=== PATIENT | female | born 1930 | race Caucasian/White ===

== ENCOUNTER 2016-07-17 14:48 | Inpatient (IN) | payer MEDICARE ==
[~2016-07-17] VITALS: Ht 160 cm; Wt 71.7 kg
[~2016-07-17 14:48] MED LIST: ALPR.5T PO; ASPI-875 PO; CA C1TAB26 PO; CALC625T PO; CHOL2000 PO; CYAN100070 PO; DCS100C PO; ENAL2.5T PO; ESTR0.5T PO; ESTR10TA VG; FLINTSTONE1 TAB.CHE4 PO; FURO40TA4 PO; FURO80TA3 PO; HC A28.3 PR; HYDR-2889 PO; HYDR-34 PO; INUL2TAB2 PO; LOPE2CAP PO; METO25TA2 PO; POTA20TA15 PO; ROSU10TA12 PO; TMZP15C PO; TRIA1CAP PO
--- OUTSIDE RECORDS SUMMARY | 2016-07-17 14:52 | XMS REPORT | Continuity of Care Document ---
Author Author [facility] Organization [facility] Address Unknown Phone Unavailable Care Team Providers Care [place] Name Role Phone DONTAE KERN MD PCP Insurance Providers Payer Name Policy Number Subscriber Name Relationship Wps Medicare [id number] Katie Ramirez 16 Self / Same As Patient Blue Cross [facility] Supp [id number] Katie Ramirez 16 Self / Same As Patient Advance Directives Directive Response Recorded Date/Time Advance Directives Yes 12/05/14 9:51am Health Care Power of Supervisor Electronics Assembly Yes 12/05/14 9:51am Organ Donor No 12/05/14 9:51am Resuscitation Status Full Code 12/05/14 9:51am Problems Medical Problems Problem Onset Date Status Mass of right lower leg Unknown Active Medications Medication Dose Route Sig Days/Qty Instructions Order Date Discontinued Date Status Alprazolam 0.25 Tab PO BEDTIME 03/09/12 Active Hydrocodone Bit/Acetaminophen 1 Each PO TID PRN 03/09/12 10/21/12 Discontinued Triamterene/HCTZ 1 Each PO DAILY 03/09/12 10/21/12 Discontinued Estradiol 0.5 Mg PO DAILY 03/09/12 10/21/12 Discontinued Potassium Chloride 20 Meq PO DAILY 10/21/12 Active Furosemide (Lasix) 1 Each PO DAILY 10/21/12 11/10/12 Discontinued Metoprolol Tartrate (Lopressor) 12.5 Mg PO TWICE A DAY TAKES 1/2 TAB OF 25MG TWICE DAILY 10/21/12 Active Rosuvastatin Calcium 10 Mg PO DAILY AFTER SUPPER 10/21/12 Active Acetaminophen/Hydrocodone Bitart 7.5-500 Mg PO THREE TIMES A DAY PRN 10/21/12 Active Aspirin 81 Mg PO DAILY 10/21/12 Active Temazepam 15 Mg PO BEDTIME 10/21/12 11/29/14 Discontinued Calcium Polycarbophil 625 Mg PO DAILY 10/21/12 11/10/12 Discontinued Estradiol 0.5 Mcg VG every 7 days 10/21/12 08/15/13 Discontinued Enalapril Maleate 2.5 Mg PO DAILY 10/21/12 08/15/13 Discontinued Furosemide (Lasix) 40 Mg PO DAILY TAKES 1/2 TAB OF 80MG TAB DAILY 11/1011/29/14 Discontinued Ca Cmb No.1/Vit D3/B-6/Fa/B12 1,000 Unit PO BEDTIME 11/10/12 Discontinued Multivitamins W-Iron 2 Tab.chew PO DAILY 11/10/12 Active Inulin/Sorbitol 2 Gm PO DAILY 11/10/12 Active Cyanocobalamin (Vitamin B-12) 1 Ml PO DAILY 08/15/13 Active Loperamide Hcl 2 Mg PO DAILY PRN DIARRHEA 08/15/13 Active Hydrocortisone/Pramoxine 0 DC FOUR TIMES DAILY 1 Qty NEW PRESCRIPTION CALLED 08/16/13 11/29/14 Discontinued Acetaminophen/Hydrocodone Bitart 1 Ea PO EVERY 4HRS 30 Qty TO [facility]. 08/16/13 11/29/14 Discontinued Docusate Sodium 100 Mg PO TWICE A DAY 60 Qty 08/16/13 11/29/14 Discontinued Furosemide (Lasix) 40 Mg PO DAILY 11/29/14 Active Cholecalciferol 2,000 Unit PO DAILY 11/29/14 Active Social History Social History Problem Response Recorded Date/Time Recreational Drug Use No 12/05/2014 9:51am Recent Foreign Travel No 12/05/2014 9:51am Smoking Status Never a Smoker 12/05/2014 9:55am Query Response Start Date Stop Date Smoking Status Never a Smoker Hospital Discharge Instructions No hospital discharge instructions. Plan of Care No plan of care. Functional Status No functional status results. Allergies, Adverse Reactions, Alerts Allergen Type Severity Reaction Status Last Updated Penicillins ([id number]) Allergy Unknown Active 08/16/13 Sulfa (Sulfonamide Antibiotics) ([id number]) Allergy Mild Active Codeine Allergy Mild Active 03/09/12 meclizine ([id number]) Allergy Mild Active 03/09/12 Immunizations Name Given Type Date of Pneumonia Vaccine 02/20/14 Historical Date of Influenza Vaccine 03/15/13 Historical Vital Signs Acute Vital Signs Vital Response Date/Time Temperature (Fahrenheit) 97.1 degrees F (97.6 - 99.5) Temperature (Calculated Celsius) 36.28632 degrees C (36.4 - 37.5) Temperature Source Temporal Pulse Rate (adult) 80 bpm (60 - 90) Respiratory Rate 16 bpm (12 - 24) O2 Sat by Pulse Oximetry 93 % (88 - 100) Blood Pressure 114/48 mm Hg Pain Pain Intensity 4 Height (Feet) 5 feet Height (Inches) 3.00 inches Height (Calculated Centimeters) 160.002092 cm Weight (Pounds) 162 pounds Weight (Calculated Grams) 31119.965 gm Weight (Calculated Kilograms) 73.665172 kilograms Calculated BMI 26.96 Results Laboratory Results Test Name Result Units Flags Reference Collection Date/Time Result Date/ Time Comments Sodium Level 141 MMOL/L 135-145 11/29/2014 8:45am 11/29/2014 9:25am Potassium Level 4.3 MMOL/L 3.6-5.0 11/29/2014 8:45am 11/29/2014 9:25am Chloride Level 102 MMOL/L 98-107 11/29/2014 8:45am 11/29/2014 9:25am Carbon Dioxide Level 27 MMOL/L 21-32 11/29/2014 8:45am 11/29/2014 9: 25am Blood Urea Nitrogen 20 MG/DL H 7-18 11/29/2014 8:45am 11/29/2014 9:25am Creatinine 1.11 MG/DL 0.60-1.30 11/29/2014 8:45am 11/29/2014 9:25am BUN/Creatinine Ratio 18 11/29/2014 8:45am 11/29/2014 9:25am Estimat Glomerular Filtration Rate 47 11/29/2014 8:45am 11/29/2014 9:25am GFR INTERPRETIVE DATA UNITS FOR ESTIMATED GFR (eGFR): mL/min/1.73 M2 REFERENCE RANGE FOR ESTIMATED GFR (eGFR) eGFR NORMAL eGFR >60 MODERATELY DECREASED eGFR 30-59 SEVERLY DECREASED eGFR 15-29 KIDNEY FAILURE <15 (OR DIALYSIS) Glucose Level 89 MG/DL 70-105 11/29/2014 8:45am 11/29/2014 9:25am Calcium Level 8.9 MG/DL 8.5-10.1 11/29/2014 8:45am 11/29/2014 9:25am Total Bilirubin 0.6 MG/DL 0.1-1.0 11/29/2014 8:45am 11/29/2014 9:29am Direct Bilirubin 0.2 MG/DL 0.0-0.3 11/29/2014 8:45am 11/29/2014 9:29am Indirect Bilirubin 0.4 MG/DL 11/29/2014 8:45am 11/29/2014 9:29am Alkaline Phosphatase 51 U/L 40-136 11/29/2014 8:45am 11/29/2014 9:29am Aspartate Amino Transf (AST/SGOT) 18 U/L 5-34 11/29/2014 8:45am 2014 9:29am Alanine Aminotransferase (ALT/SGPT) 9 U/L 0-55 11/29/2014 8:45am 2014 9:29am Total Protein 7.0 G/DL 6.4-8.2 11/29/2014 8:45am 11/29/2014 9:29am Albumin 3.9 G/DL 3.2-4.5 11/29/2014 8:45am 11/29/2014 9:29am Triglycerides Level 155 MG/DL H <150 11/29/2014 8:45am 11/29/2014 9:29am Cholesterol Level 135 MG/DL < 200 11/29/2014 8:45am 11/29/2014 9:29am HDL Cholesterol 43 MG/DL 40-60 11/29/2014 8:45am 11/29/2014 9:29am LDL Cholesterol Direct 67 MG/DL 1-129 11/29/2014 8:45am 11/29/2014 9: 29am VLDL Cholesterol 31 MG/DL 5-40 11/29/2014 8:45am 11/29/2014 9:29am Procedures Procedure Status Date Provider(s) Excision of lesion completed 12/05/14 JO ANN SMILEY DO Encounters Encounter Location Date/Time Registered [facility] 12/05/14 9:05am Registered Clinic [facility] 11/29/14 8:20am Registered Clinic [facility] 11/29/14 8:13am Recent Diagnosis Mass of right lower leg
[2016-07-17 15:10] VITALS: BP 135/62
[2016-07-17] MEDS ORDERED: CATHETER FLUSH 10 ML SYR IV PRN (15:30)
[2016-07-17] MEDS ORDERED: cefTRIAXone 1 GM/NS 50 ML IVPB IV NR ×2 (15:30)
[2016-07-17 15:44] LABS: BASOPHILS % (AUTO) 0 % (0-10); EOSINOPHILS % (AUTO) 0 % (0-10); LYMPHOCYTES % (AUTO) 14 % (12-44); MEAN CORPUSCULAR HEMOGLOBIN 31 PG (25-34); MEAN CORPUSCULAR HGB CONC 31 G/DL (32-36); MEAN CORPUSCULAR VOLUME 97 FL (80-99); MEAN PLATELET VOLUME 10.9 FL (7.4-10.4); MONOCYTES # (AUTO) 0.9 X 10^3 (0.0-1.0); MONOCYTES % (AUTO) 7 % (0-12); NEUTROPHILS # (AUTO) 11.1 X 10^3 (1.8-7.8); NEUTROPHILS % (AUTO) 79 % (42-75); PLATELET COUNT 244 10^3/uL (130-400); RED BLOOD COUNT 3.77 10^6/uL (4.35-5.85); RED CELL DISTRIBUTION WIDTH 12.9 % (10.0-14.5)
[2016-07-17 15:54] LABS: BAND NEUTROPHILS 2 %; BASOPHILS % (MANUAL) 1 %; EOSINOPHILS % (MANUAL) 0 %; LYMPHOCYTES % (MANUAL) 21 %; NEUTROPHILS % (MANUAL) 68 %
[2016-07-17 15:57] LABS: ALBUMIN 4.1 G/DL (3.2-4.5); BILIRUBIN,TOTAL 0.6 MG/DL (0.1-1.0); CALCIUM 9.3 MG/DL (8.5-10.1); CREATININE SERUM 1.16 MG/DL (0.60-1.30)
[2016-07-17 16:04] LABS: BILIRUBIN,URINE NEGATIVE (NEGATIVE); UROBILINOGEN,URINE NORMAL (NORMAL)
[2016-07-17 16:06] LABS: KETONES,URINE NEGATIVE (NEGATIVE); LEUKOCYTE ESTERASE ,URINE 3+ (NEGATIVE); NITRITE,URINE NEGATIVE (NEGATIVE); PH,URINE 8 (5-9); PROTEIN,URINE 3+ (NEGATIVE)
[2016-07-17] MEDS ORDERED: PHENAZOPYRIDINE 100 MG (PYRIDIUM) TABLET PO NR ×2 (16:15→18:45)
[2016-07-17 16:17] LABS: WBC,URINE >100 /HPF
[2016-07-17] MEDS: NS IV 1000 ML 1,000 ML IV SCH (16:22)
[2016-07-17] MEDS ORDERED: HYDROcodone/APAP 5 MG/325 MG (LORTAB) TAB PO NR (17:45)
[2016-07-17] MEDS: ALPRAZolam 0.25 MG (XANAX) TAB PO PRN (17:58)
[2016-07-17] MEDS: ALPRAZolam 0.25 MG (XANAX) TAB PO SCH ×2 (18:00→20:52)
--- NOTE | 2016-07-17 18:02 | History & Physicial ---
History of Present Illness History of Present Illness Reason for visit/HPI PT IS AN 85 Y/O FEMALE WHO IS KNOWN TO ME FROM CLINIC. SHE PRESENTED TO CLINIC TODAY WITH COMPLAINT OF WEAKNESS, BLOODY URINE, URINARY RETENTION, AND FEVER AT HOME. SHE REPORTS NIGHT SWEATS LAST NIGHT AND JUST FEELS EXTREMELY POORLY. Date of Admission I consulted on this patient on 07/17/16 18:01 Attending Physician Dontae Aggarwal MD Admitting Physician Dontae Aggarwal MD Consult Allergies and Home Medications Allergies Coded Allergies: Sulfa (Sulfonamide Antibiotics) (Verified Allergy, Mild, 03/09/12) codeine (Verified Allergy, Mild, HAS TAKEN LORTAB IN THE PAST, 07/17/16) meclizine (Verified Allergy, Mild, 03/09/12) Penicillins (Unverified Allergy, Unknown, Has received Ancef in the past, 07/17/16) Home Medications Alprazolam 0.5 Mg Tablet 0.25 TAB PO HS (Reported) Cholecalciferol 2,000 Unit Capsule 2,000 UNIT PO DAILY (Reported) Cyanocobalamin (Vitamin B-12) 1,000 Mcg/15 Ml Liquid 1 ML PO DAILY (Reported) Furosemide 40 Mg Tablet 40 MG PO DAILY (Reported) Hydrocodone Bit/Acetaminophen 1 Ea Tablet 7.5-500 MG PO TID PRN PRN (Reported) PRN PAIN Inulin/Sorbitol 2 Gm Tab.chew 2 GM PO DAILY (Reported) Loperamide Hcl 2 Mg Capsule 2 MG PO DAILY PRN PRN DIARRHEA (Reported) PRN DIARRHEA Metoprolol Tartrate 25 Mg Tablet 12.5 MG PO DAILY (Reported) ONE TIME DAILY PRN HTN Multivitamins W-Iron 1 Tab.chew Tab.chew 2 TAB.CHEW PO DAILY (Reported) Potassium Chloride 20 Meq Tab.prt.sr 20 MEQ PO DAILY (Reported) Rosuvastatin Calcium 10 Mg Tablet 10 MG PO DAILY AFTER SUPPER (Reported) Past Ozvnjsg-Elvdmq-Zgmqfk Hx Patient Social History Marrital Status: Living Status: LIVES IN HER HOME ALONE Employed/Student: retired Alcohol Use: Denies Use Recreational Drug Use: No 2nd Hand Smoke Exposure: No Physical Abuse Screen: No Sexual Abuse: No Recent Foreign Travel: No Contact w/other who traveled: No Recent Hopitalizations: No Recent Infectious Disease Expo: No Immunizations Up To Date Date of Pneumonia Vaccine: Feb 20, 2014 Date of Influenza Vaccine: Mar 15, 2013 Seasonal Allergies Seasonal Allergies: No Surgeries HX Surgeries: Yes (APPY, OSMAR, BLADDER REPAIR X2, INGUINAL HERNIA REPAIR X2, TOTAL KNEE REPLA) Surgeries: Appendectomy, Bladder Surgery, Gallbladder, Open Heart Surgery, Orthopedic Respiratory Hx Respiratory Disorders: No Cardiovascular Hx Cardiovascular Disorders: Yes (CABG X6) Neurological Hx Neurological Disorders: No Reproductive System Hx Reproductive Disorders: Yes Genitourinary Hx Genitourinary Disorders: Yes Gastrointestinal Hx Gastrointestinal Disorders: Yes (irr bowel, diverticulitis) Musculoskeletal Hx Musculoskeletal Disorders: No (USE CANE) Endocrine Hx Endocrine Disorders: No HEENT HX ENT Disorders: No (PARTIALS) Cancer Hx Cancer: No Psychosocial Hx Psychiatric Problems: No Blood Transfusions Hx Blood Disorders: No Adverse Reaction to a Blood Tr: No Reviewed Nursing Assessment Reviewed/Agree w Nursing PMH: Yes Family Medical History Significant Family History: Heart Disease, Hypertension Constitutional: chills fever malaise weakness EENTM: No hoarseness, No mouth pain, No throat pain Respiratory: No cough, No short of breath Cardiovascular: no symptoms reported Hx of Intervention Gastrointestinal: abdominal pain (SUPRAPUBIC) constipation (CHRONIC)No nausea Genitourinary: dysuria hematuria hesitancy pain Musculoskeletal: back pain other (LEG PAIN) Skin: no symptoms reported Psychiatric/Neurological: AnxietyDenies Numbness, Denies Pre-Existing Deficit All Other Systems Reviewed Negative Unless Noted: Yes Physical Exam Vital Signs Vital Sign - Last 12Hours 07/17/16 18:37 O2 Delivery Room Air Capillary Refill : General Appearance: WD/WN Mild Distress Eyes: Bilateral Eye EOMI, Bilateral Eye Normal Inspection, Bilateral Eye PERRL HEENT: Pharynx Normal Neck: Full Range of Motion Supple Respiratory: Chest Non Tender Lungs Clear Normal Breath Sounds No Accessory Muscle Use Cardiovascular: Regular Rate, Rhythm No Edema Gastrointestinal: Normal Bowel Sounds Tenderness (SUPRAPUBIC) Rectal: Deferred Back: Other (KYPHOSIS) Extremity: No Calf Tenderness No Pedal Edema Neurologic/Psychiatric: Alert Oriented x3 Normal Mood/Affect Other (BLINDNESS) Skin: Warm/Dry Lymphatic: No Adenopathy Assessment/Plan Assessment and Plan HEMATURIA URINARY TRACT INFECTION URINARY RETENTION DYSURIA LEUKOCYTOSIS DEHYDRATION - MILD CHRONIC PAIN SYNDROME HYPERTENSION ANXIETY RESTLESS LEG SYNDROME HEMATURIA WITH URINARY TRACT INFECTION AND URINARY RETENTION AND DYSURIA - DOMINGO PLACED DUE TO URINARY RETENTION, UA OBTAINED, SENT FOR CULTURE, PT STARTED ON IV ANTIBIOTICS AND PYRIDIUM AND IV FLUIDS. WAIT ON URINE CULTURE REPORT FOR FULL SENSITIVITY. LEUKOCYTOSIS - CHECK LABS IN MORNING DEHYDRATION - MILD - START IV FLUIDS. CHRONIC PAIN SYNDROME - RESTART HOME MEDICATIONS HYPERTENSION - RESTART TOPROL ANXIETY- RESTART ALPRAZOLAM RESTLESS LEG SYNDROME - PT USES ALPRAZOLAM FOR MUSCLE CRAMPS - CONTINUE WITH TREATMENT Admission Diagnosis HEMATURIA URINARY TRACT INFECTION URINARY RETENTION DYSURIA LEUKOCYTOSIS DEHYDRATION - MILD CHRONIC PAIN SYNDROME HYPERTENSION ANXIETY RESTLESS LEG SYNDROME DONTAE AGGARWAL MD Jul 17, 2016 18:02
[2016-07-17] MEDS ORDERED: HYDROcodone/APAP 5 MG/325 MG (LORTAB) TAB PO SCH (19:00)
[2016-07-17] MEDS: ENOXAPARIN 40 MG/0.4 ML (LOVENOX) SYR SC SCH (19:35)
[2016-07-17 20:00] VITALS: BP 120/55
[2016-07-17] MEDS: meTOprolol TARTRATE 25 MG (LOPRESSOR) TABLET PO SCH (20:51)
[2016-07-17] MEDS: HYDROcodone/APAP 7.5 MG/325 MG (LORTAB, LORCET PLUS) TABLET PO SCH (20:53)
[2016-07-18] VITALS: BP 102/51
[2016-07-18] MEDS: ALPRAZolam 0.25 MG (XANAX) TAB PO PRN ×4 (01:49→23:48)
[2016-07-18] MEDS: NS IV 1000 ML 1,000 ML IV SCH ×2 (02:42→14:32)
[2016-07-18] MEDS: ACETAMINOPHEN 500 MG TAB (TYLENOL) PO PRN (02:48)
[2016-07-18] MEDS ORDERED: PHENAZOPYRIDINE 100 MG (PYRIDIUM) TABLET PO ONE (03:00)
[2016-07-18] MEDS: morphine INJ 4 MG/ML 1 ML (VIAL/SYRINGE) IVP PRN ×2 (03:09→04:12)
[2016-07-18 04:00] VITALS: BP 96/49
[2016-07-18 06:42] LABS: RED BLOOD COUNT 3.12 10^6/uL (4.35-5.85); RED CELL DISTRIBUTION WIDTH 12.8 % (10.0-14.5); WHITE BLOOD COUNT 9.3 10^3/uL (4.3-11.0)
[2016-07-18 07:19] LABS: ALBUMIN 3.1 G/DL (3.2-4.5); BILIRUBIN,TOTAL 0.3 MG/DL (0.1-1.0); CREATININE SERUM 0.95 MG/DL (0.60-1.30); POTASSIUM 3.7 MMOL/L (3.6-5.0); TOTAL PROTEIN 5.3 G/DL (6.4-8.2)
[2016-07-18] MEDS ORDERED: ALPR0.254 PO (07:56)
[2016-07-18] MEDS ORDERED: HYDR-3816 PO (07:56)
[2016-07-18 08:00] VITALS: BP 128/63
[2016-07-18] MEDS ORDERED: MULT1TAB60 PO (08:16)
[2016-07-18] MEDS ORDERED: FERR-74 PO (08:23)
[2016-07-18] MEDS ORDERED: CEPH500C PO (08:24)
[2016-07-18] MEDS: meTOprolol TARTRATE 25 MG (LOPRESSOR) TABLET PO SCH (09:00)
[2016-07-18] MEDS ORDERED: cefTRIAXone INJECTION 1,000 MG in NORMAL SALINE (BAXTER MINI) 50 ML IV SCH (09:00)
[2016-07-18] MEDS: HYDROcodone/APAP 7.5 MG/325 MG (LORTAB, LORCET PLUS) TABLET PO SCH ×2 (09:06→20:17)
[2016-07-18] MEDS: PHENAZOPYRIDINE 100 MG (PYRIDIUM) TABLET PO SCH ×3 (09:06→17:02)
--- NOTE | 2016-07-18 10:01 | Progress Note (SOAP) ---
Subjective Subjective/Events-last exam PT REPORTS PERSISTENT BLADDER SPASMS OVERNIGHT, BACK PAIN, WEAKNESS. FAMILY IS WONDERING ABOUT CONSULT TO DR. WATSON. Review of Systems General: Fatigue HEENT: No Head Aches Pulmonary: No Dyspnea Cardiovascular: No: Chest Pain Gastrointestinal: : Abdominal Pain Genitourinary: Dysuria Frequency Hematuria Musculoskeletal: : back pain: leg pain Neurological: : Weakness Objective Exam Vital Signs Date Time Temp Pulse Resp B/P Pulse Ox O2 Delivery O2 Flow Rate FiO2 07/18/16 07:44 1.50 07/18/16 04:02 95 Nasal Cannula 2.00 07/18/16 04:00 96.4 72 18 96/49 88 Room Air 07/18/16 00:00 96.5 63 18 102/51 Room Air 07/17/16 20:00 100.0 80 20 120/55 91 Room Air 07/17/16 18:37 Room Air 07/17/16 15:10 98.3 92 20 135/62 92 Room Air I & O 07/18/16 07:00 Intake Total 1812 ml Output Total 750 ml Balance 1062 ml Capillary Refill : General Appearance: WD/WN Mild Distress Neck: Supple Respiratory: Chest Non Tender Lungs Clear Normal Breath Sounds Cardiovascular: Regular Rate, Rhythm Gastrointestinal: normal bowel sounds tenderness (LLQ, EPIGASTRIUM) Neurologic/Psychiatric: Alert Oriented x3 No Motor/Sensory Deficits Normal Mood/Affect Skin: Warm/Dry Lymphatic: No Adenopathy Results Lab Laboratory Tests 07/17/16 15:29: Alanine Aminotransferase (ALT/SGPT) 14, Albumin 4.1, Alkaline Phosphatase 69, Anion Gap 12, Aspartate Amino Transf (AST/SGOT) 24, BUN/Creatinine Ratio 22, Band Neutrophils 2, Basophils # (Auto) 0.0, Basophils % (Manual) 1, Basophils (% ) (Auto) 0, Blood Morphology Comment NORMAL, Blood Urea Nitrogen 25H, Calcium Level 9.3, Carbon Dioxide Level 26, Chloride Level 100, Creatinine 1.16, Eosinophils # (Auto) 0.0, Eosinophils % (Manual) 0, Eosinophils (%) (Auto) 0, Estimat Glomerular Filtration Rate 44, Glucose Level 88, Hematocrit 37, Hemoglobin 11.5, Lymphocytes # (Auto) 2.0, Lymphocytes % (Manual) 21, Lymphocytes (%) (Auto) 14, Mean Corpuscular Hemoglobin 31, Mean Corpuscular Hemoglobin Concent 31L, Mean Corpuscular Volume 97, Mean Platelet Volume 10.9H, Monocytes # (Auto) 0.9, Monocytes % (Manual) 8, Monocytes (%) (Auto) 7, Neutrophils # (Auto) 11.1H, Neutrophils % (Manual) 68, Neutrophils (%) (Auto) 79H, Platelet Count 244, Potassium Level 4.0, Red Blood Count 3.77L, Red Cell Distribution Width 12.9, Sodium Level 138, Total Bilirubin 0.6, Total Protein 7.0, White Blood Count 14.0H 07/17/16 15:45: Urine Bacteria LARGEH, Urine Bilirubin NEGATIVE, Urine Casts NONE, Urine Clarity SLIGHTLY CLOUDY, Urine Color YELLOW, Urine Crystals NONE, Urine Culture Indicated YES, Urine Glucose (UA) NEGATIVE, Urine Ketones NEGATIVE, Urine Leukocyte Esterase 3+H, Urine Mucus NEGATIVE, Urine Nitrite NEGATIVE, Urine Protein 3+H, Urine RBC >100H, Urine RBC (Auto) 5+H, Urine Specific [place] 1.010L, Urine Squamous Epithelial Cells 2-5, Urine Urobilinogen NORMAL, Urine WBC >100H, Urine pH 8 07/18/16 06:15: Alanine Aminotransferase (ALT/SGPT) 13, Albumin 3.1L, Alkaline Phosphatase 53, Anion Gap 9, Aspartate Amino Transf (AST/SGOT) 20, BUN/Creatinine Ratio 23, Blood Urea Nitrogen 22H, Calcium Level 8.0L, Carbon Dioxide Level 24, Chloride Level 105, Creatinine 0.95, Estimat Glomerular Filtration Rate 56, Glucose Level 76, Hematocrit 31L, Hemoglobin 9.5L, Mean Corpuscular Hemoglobin 30, Mean Corpuscular Hemoglobin Concent 31L, Mean Corpuscular Volume 99, Mean Platelet Volume 11.0H, Platelet Count 193, Potassium Level 3.7, Red Blood Count 3.12L, Red Cell Distribution Width 12.8, Sodium Level 138, Total Bilirubin 0.3, Total Protein 5.3L, White Blood Count 9.3 Microbiology 07/17/16 Urine Culture - Preliminary, Resulted NO GROWTH Assessment/Plan Assessment/Plan Assess & Plan/Chief Complaint HEMATURIA URINARY TRACT INFECTION URINARY RETENTION DYSURIA LEUKOCYTOSIS DEHYDRATION - MILD CHRONIC PAIN SYNDROME HYPERTENSION ANXIETY RESTLESS LEG SYNDROME HEMATURIA WITH URINARY TRACT INFECTION AND URINARY RETENTION AND DYSURIA - DOMINGO PLACED DUE TO URINARY RETENTION, UA OBTAINED, SENT FOR CULTURE, PT STARTED ON IV ANTIBIOTICS AND PYRIDIUM AND IV FLUIDS. WAIT ON URINE CULTURE REPORT FOR FULL SENSITIVITY. LEUKOCYTOSIS - IMPROVING - MONITOR DEHYDRATION - MILD - CONTINUE WITH LOWER DOSE OF IV FLUIDS. CHRONIC PAIN SYNDROME - RESTARTED HOME MEDICATIONS HYPERTENSION - RESTARTED TOPROL ANXIETY- RESTARTED ALPRAZOLAM RESTLESS LEG SYNDROME - PT USES ALPRAZOLAM FOR MUSCLE CRAMPS - CONTINUE WITH TREATMENT Diagnosis/Problems: Clinical Quality Measures DVT/VTE Risk/Contraindication: Risk Factor Score Per Nursin RFS Level Per Nursing on Admit: 3=High DONTAE KERN MD Jul 18, 2016 10:01
[2016-07-18] MEDS: HYOSCYAMINE 0.125 MG (LEVSIN) TAB PO PRN ×2 (10:24→17:02)
--- NOTE | 2016-07-18 10:38 | CONSULTATION REPORT ---
DATE OF CONSULTATION: 07/18/2015. ATTENDING PHYSICIAN: Dr. Aggarwal. SUMMARY: After reviewing the patient's record, interviewing her and examining her, this is an 85-year-old white lady admitted by Dr. Aggarwal because of weakness, gross hematuria, urinary retention and fever. She has been having recurrent UTI and urinary incontinence. She has had multiple surgeries on her bladder; three to her recollection. Last one was a sling and also she had a mesh. She feels like she is feeling mesh I guess in her vagina. Her last surgery was about 10 years ago. She wears 1 or 2 pads a day. ALLERGIES: 1. SULFA. 2. CODEINE. 3. MECLIZINE. 4. PENICILLIN. MEDICATIONS: 1. Xanax. 2. Lasix. 3. Hydrocodone. 4. Insulin. 5. Loperamide. 6. Metoprolol. 7. Potassium chloride. 8. Other p.r.n. supplements per history. SOCIAL HISTORY: She is a . No smoking. No alcohol. No drugs SURGERY ROBERTS: 1. She had those above mentioned bladder surgeries. 2. Total vaginal hysterectomy with bilateral salpingo-oophorectomy. 3. Bilateral hernia repair. 4. Cholecystectomy. PHYSICAL EXAMINATION: VITAL SIGNS: Per chart. GENERAL: Well-nourished, well-developed, in no acute distress. HEAD: Normocephalic. ENT: Unremarkable. NECK: Supple. No bruits. CHEST: Clear, nontender. HEART: Regular rate and rhythm. No murmur. ABDOMEN: Soft, nontender. EXTREMITIES: No edema or cyanosis. NEUROLOGICAL EXAM: Grossly intact, very sharp for her age. SKIN: Skin is warm and dry ASSESSMENT: 1. Gross hematuria with urinary tract infection and retention and incontinence and history of UTIs. 2. Chronic pain syndrome. 3. Hypertension. 4. Anxiety. 5. Restless leg syndrome PLAN: 1. Continue present management. We will order a noncontrast CT scan of the abdomen and pelvis without contrast IV or p.o. 2. Cystoscopy, urethral dilatation and vaginoscopy to check on sling; erosion or extrusion on Thursday under local. This was fully explained to the patient and her daughter. 3. For her bladder spasm, we will put her on some Levsin. Job ID: [id number] Dictated Date: 07/18/2016 09:40:55 Traffic Officer Date: 07/18/2016 10:27:21/ojri
--- NOTE | 2016-07-18 11:30 | Diagnostic Imaging Report ---
PROCEDURE: CT abdomen and pelvis without contrast. TECHNIQUE: Multiple contiguous axial images were obtained through the abdomen and pelvis without the use of intravenous contrast. INDICATION: Difficult to urinate. There are no previous studies available for comparison. There are a number of diverticula involving the sigmoid and descending colon. There is also distortion of the pericolonic fat about these diverticula, and most likely there is an element of acute diverticulitis present. Furthermore, there is distortion of the pericolonic fat about the proximal ascending colon and cecum, and I suspect that there is an element of colitis present as well. The appendix was visualized and does not seem to be abnormally thickened measuring 7 mm (normal 8 mm or less.) Consequently, I am not convinced that there is an element of acute appendicitis present. There is a small amount of free fluid in the pelvis. Most likely this is due to the suspected inflammation of the colon. There is also a Gregory catheter within the bladder, and the bladder is decompressed. A small amount of intraluminal gas is also seen. The gas is most likely secondary to the presence of a catheter. The uterus is surgically absent. The kidneys do not appear to be obstructed, and there is no sign of a solid renal mass. There is no evidence for nephrolithiasis either. The liver, spleen, pancreas, adrenals, aorta, and inferior vena cava show no sign of an acute abnormality. The gallbladder is not well visualized and may be surgically absent. The stomach is filled with particulate matter and consequently difficult to assess. The images through lung bases show that the heart is enlarged and that there are extensive coronary artery calcifications. There is also scar formation/chronic atelectasis in the left lung base. There is no sign of pneumonia or of a pleural effusion. The bone windows show no evidence for a fracture or for a destructive lesion. There is fairly severe degenerative disc and bony disease throughout the lumbar spine. IMPRESSION: 1. There is acute diverticulitis of the sigmoid and descending colon. The distortion of the pericolic fat about the cecum and proximal ascending colon also suggests that there is an element of colitis in this area. There is no definite evidence for acute appendicitis, however. 2. There is no sign of a solid renal mass, and the kidneys do not appear to be obstructed. 3. There is no other acute abnormality of the abdomen or pelvis noted. 4. There is cardiomegaly, coronary artery disease, and chronic pulmonary disease. 5. These results were discussed with Dr. Haskins. Dictated by: Dictated on workstation # [id number]
[2016-07-18] MEDS ORDERED: metroNIDAZOLE 500MG/100ML IVPB 100 ML IV SCH (11:45)
[2016-07-18] MEDS: HYDROcodone/APAP 7.5 MG/325 MG (LORTAB, LORCET PLUS) TABLET PO PRN ×3 (12:41→23:48)
[2016-07-18 13:00] VITALS: BP 110/63
[2016-07-18 15:30] VITALS: BP 102/51
[2016-07-18] MEDS ORDERED: FUROSEMIDE 40 MG/4 ML INJ (LASIX) IVP NR (16:30)
[2016-07-18] MEDS: RT-LEVALBUTEROL (XOPENEX) 1.25 MG/3 ML NEB NON-FORMULARY INH PRN ×2 (16:46→23:37)
[2016-07-18 20:07] VITALS: BP 99/46
[2016-07-18] MEDS: ENOXAPARIN 40 MG/0.4 ML (LOVENOX) SYR SC SCH (20:14)
[2016-07-18] MEDS: ALPRAZolam 0.25 MG (XANAX) TAB PO SCH (20:17)
[2016-07-18] MEDS: metroNIDAZOLE 500MG/100ML IVPB 100 ML IV SCH (20:18)
[2016-07-19] VITALS: BP 87/45
[2016-07-19] MEDS: metroNIDAZOLE 500MG/100ML IVPB 100 ML IV SCH ×3 (03:53→20:59)
[2016-07-19] MEDS: HYDROcodone/APAP 7.5 MG/325 MG (LORTAB, LORCET PLUS) TABLET PO PRN ×3 (03:53→17:16)
[2016-07-19] MEDS: NS IV 1000 ML 1,000 ML IV SCH ×2 (03:53→14:45)
[2016-07-19 04:00] VITALS: BP 106/53
--- NOTE | 2016-07-19 07:43 | Progress Note (SOAP) ---
Subjective Subjective/Events-last exam patient not feeling well. Patient having abdominal pain. Patient having back pain. Patient is blind. CAT scan shows acute diverticulitis of sigmoid and descending colon. Colitis. Patient anxious being out of her own element Objective Exam Vital Signs Date Time Temp Pulse Resp B/P Pulse Ox O2 Delivery O2 Flow Rate FiO2 07/19/16 04:00 106/53 07/19/16 00:00 97.8 76 18 87/45 95 Room Air 07/18/16 23:37 95 1.50 07/18/16 21:15 94 Nasal Cannula 1.50 07/18/16 20:07 98.7 72 20 99/46 95 Room Air 07/18/16 16:46 94 1.50 07/18/16 15:30 98.3 72 20 102/51 96 Room Air 07/18/16 13:00 98.7 73 20 110/63 93 Room Air 07/18/16 09:00 94 Nasal Cannula 1.50 07/18/16 08:00 97.4 71 20 128/63 95 Room Air 07/18/16 07:44 1.50 I & O 07/19/16 07:00 Intake Total 3915 ml Output Total 1350 ml Balance 2565 ml Capillary Refill : General Appearance: No Apparent Distress WD/WN HEENT: Other (blind and lives alone) Neck: Normal Inspection Respiratory: Chest Non Tender Lungs Clear Normal Breath Sounds No Accessory Muscle Use No Respiratory Distress Cardiovascular: Regular Rate, Rhythm No Edema Gastrointestinal: non tender soft Results Lab Microbiology 07/17/16 Urine Culture - Preliminary, Resulted NO GROWTH Assessment/Plan Assessment/Plan Assess & Plan/Chief Complaint hematuria . UTI. Urine culture no growth. Blindness. Abdominal pain. Diverticulitis. Colitis. Restless legs. Patient put on Cipro and DC'd Rocephin. Patient afebrile. White blood cell count better yesterday Diagnosis/Problems: Clinical Quality Measures DVT/VTE Risk/Contraindication: Risk Factor Score Per Nursin RFS Level Per Nursing on Admit: 3=High YNES ARGUELLES DO Jul 19, 2016 07:43
[2016-07-19] MEDS: PHENAZOPYRIDINE 100 MG (PYRIDIUM) TABLET PO SCH ×3 (08:01→17:15)
[2016-07-19] MEDS: HYDROcodone/APAP 7.5 MG/325 MG (LORTAB, LORCET PLUS) TABLET PO SCH ×2 (08:01→20:59)
[2016-07-19] MEDS: HYOSCYAMINE 0.125 MG (LEVSIN) TAB PO PRN ×2 (08:01→13:09)
[2016-07-19] MEDS: ALPRAZolam 0.25 MG (XANAX) TAB PO PRN ×3 (08:01→16:41)
[2016-07-19] MEDS: CIPROFLOXACIN IV 400MG/200ML 200 ML IV SCH ×2 (08:02→22:04)
[2016-07-19 08:40] VITALS: BP 94/52
[2016-07-19] MEDS: RT-LEVALBUTEROL (XOPENEX) 1.25 MG/3 ML NEB NON-FORMULARY INH PRN (09:52)
[2016-07-19 16:32] VITALS: BP 126/52
[2016-07-19] MEDS ORDERED: AL HYDROX PO PRN (17:00)
[2016-07-19] MEDS ORDERED: [UNRECOGNIZED DRUG - OTHER] PO PRN (17:00)
[2016-07-19] MEDS ORDERED: ONDANSETRON 4 MG/2 ML (SDV) Z0FRAN IVP PRN (18:45)
--- NOTE | 2016-07-19 19:39 | Diagnostic Imaging Report ---
INDICATION: Increased abdominal pain. COMPARISON: CT dated July 18, 2016 TECHNIQUE: 3 radiographs of the abdomen dated July 19, 2016. FINDINGS: Stable elevation of the right hemidiaphragm. Postsurgical changes of a median sternotomy. Significant apex left curvature of the visualized thoracolumbar spine. Post surgical changes are identified related to prior midline abdominal incision. Calcific densities within the bilateral gluteal soft tissues is again identified. Focal loop of bowel within the left mid abdomen is identified measuring 8 cm in diameter. This appears more prominent than the prior examination. Some folds appear to extend across the diameter of this loop of bowel suggested within the small bowel, while other folds do not spanning the entire diameter. Additional loops small bowel within the right abdomen at the upper limits of normal in size. No evidence of free air. IMPRESSION: Prominent loop of bowel within the left mid abdomen. It is unclear whether this relates to small or large bowel given the fold pattern. However, this does appear more prominent than the prior examination. Findings are nonspecific and could relate to focal ileus, though developing bowel obstruction should be considered given additional loops of small bowel appearing at the upper limits of normal in size and more prominent than the prior exam. Recommend a CT of the abdomen and pelvis for further evaluation if there is clinical concern for bowel obstruction. No free air. Report was called to [facility] by luke at 7:40 p.m. Dictated by: Dictated on workstation # [id number]
[2016-07-19] MEDS ORDERED: IOHEXOL 350 MG/ML 100 ML (OMNIPAQUE 350) VIAL IV ONE (20:00)
[2016-07-19] MEDS ORDERED: NS 100 ML (IVPB) BAG IV ONE (20:00)
[2016-07-19] MEDS ORDERED: CATHETER FLUSH 10 ML SYR IV PRN (20:00)
[2016-07-19] MEDS: ENOXAPARIN 40 MG/0.4 ML (LOVENOX) SYR SC SCH (20:58)
[2016-07-19] MEDS: ALPRAZolam 0.25 MG (XANAX) TAB PO SCH (20:59)
--- NOTE | 2016-07-19 22:53 | Diagnostic Imaging Report ---
PROCEDURE: CT abdomen and pelvis with contrast. TECHNIQUE: Multiple contiguous axial images were obtained through the abdomen and pelvis after administration of intravenous contrast. INDICATION: Abdominal pain COMPARISON: Radiographs from the same day and CT dated July 18, 2016 FINDINGS: Calcified granuloma within the left lower lobe. Increasing and developing opacities are noted within the left lung base. Minimal atelectasis within the right lung base. Trace left basilar pleural effusion. Elevation of the right hemidiaphragm is again noted. The liver is unremarkable. The spleen is unremarkable. The adrenal glands are unremarkable. Fatty atrophy of the pancreas. Otherwise, the pancreas is unremarkable. The kidneys are unremarkable. No aneurysmal dilatation of the abdominal aorta. Gregory catheter is present within a decompressed urinary bladder. The uterus is not visualized, likely surgically absent. No abnormal adnexal mass lesion. Colonic diverticulosis. Mild mural thickening with adjacent fat stranding is identified near the junction of the descending and sigmoid colon, appearing similar to the prior examination. Small amount of fluid is identified at this location, though this does not appear to be a focal fluid collection as this fluid is tracking within the left paracolic gutter. Mild mural thickening of the ascending colon is again identified with associated minimal though improving pericolonic fat stranding. No evidence of bowel obstruction. Evidence of prior midline abdominal incision. Small amount of free fluid within the abdomen and pelvis, slightly improved from the prior examination. Osseous structures appear stable without acute osseous abnormality. IMPRESSION: No evidence of bowel obstruction or free air. Findings likely relate to diverticulitis at the junction of the descending and sigmoid colon, appearing similar to the prior examination. Findings consistent with improving colitis involving the ascending colon. Increasing left basilar opacities which may relate to increasing atelectasis versus developing infiltrate. Slightly improving small amount of free fluid within the abdomen and pelvis. Dictated by: Dictated on workstation # [id number]
[2016-07-19] MEDS: ACETAMINOPHEN 500 MG TAB (TYLENOL) PO PRN (23:36)
[2016-07-20] VITALS: BP 115/51
[2016-07-20] MEDS: ALPRAZolam 0.25 MG (XANAX) TAB PO PRN ×3 (00:21→20:17)
[2016-07-20] MEDS: HYDROcodone/APAP 7.5 MG/325 MG (LORTAB, LORCET PLUS) TABLET PO PRN ×2 (01:44→17:27)
[2016-07-20] MEDS: NS IV 1000 ML 1,000 ML IV SCH ×2 (01:44→17:23)
[2016-07-20] MEDS: metroNIDAZOLE 500MG/100ML IVPB 100 ML IV SCH ×3 (04:36→20:14)
[2016-07-20 05:03] LABS: BASOPHILS % (AUTO) 0 % (0-10); EOSINOPHILS # (AUTO) 0.1 10^3/uL (0.0-0.3); EOSINOPHILS % (AUTO) 2 % (0-10); LYMPHOCYTES # (AUTO) 1.1 X 10^3 (1.0-4.0); LYMPHOCYTES % (AUTO) 20 % (12-44); MEAN CORPUSCULAR HEMOGLOBIN 31 PG (25-34); MEAN CORPUSCULAR HGB CONC 31 G/DL (32-36); MEAN CORPUSCULAR VOLUME 100 FL (80-99); MEAN PLATELET VOLUME 10.7 FL (7.4-10.4); MONOCYTES # (AUTO) 0.6 X 10^3 (0.0-1.0); MONOCYTES % (AUTO) 10 % (0-12); NEUTROPHILS # (AUTO) 3.8 X 10^3 (1.8-7.8); NEUTROPHILS % (AUTO) 68 % (42-75); PLATELET COUNT 201 10^3/uL (130-400); WHITE BLOOD COUNT 5.6 10^3/uL (4.3-11.0)
[2016-07-20 05:26] LABS: CARBON DIOXIDE 23 MMOL/L (21-32); CHLORIDE 108 MMOL/L (98-107); POTASSIUM 3.6 MMOL/L (3.6-5.0); SODIUM 138 MMOL/L (135-145)
[2016-07-20 05:27] LABS: ANION GAP 7 MMOL/L (5-14); BLOOD UREA NITROGEN 12 MG/DL (7-18); BUN/CREATININE RATIO 14; CALCIUM 7.9 MG/DL (8.5-10.1); CREATININE SERUM 0.84 MG/DL (0.60-1.30); GFR ESTIMATED > 60; GLUCOSE 97 MG/DL (70-105)
--- NOTE | 2016-07-20 08:00 | Progress Note (SOAP) ---
Subjective Subjective/Events-last exam patient feels weak today. Abdomen is better. Flatplate of abdomen may have early obstruction area CAT scan of abdomen and pelvis shows no obstruction, colitis better, and diverticulitis the same. White blood cell 5.6 hemoglobin 8.9 and hematocrit 29 Objective Exam Vital Signs Date Time Temp Pulse Resp B/P Pulse Ox O2 Delivery O2 Flow Rate FiO2 07/20/16 00:00 97.8 70 20 115/51 95 Nasal Cannula 2.00 07/19/16 20:00 Nasal Cannula 2.00 07/19/16 16:32 97.1 82 16 126/52 97 Nasal Cannula 2.00 07/19/16 14:54 98 1.50 07/19/16 09:55 96 1.50 07/19/16 08:40 97.2 69 16 94/52 97 Nasal Cannula 2.00 07/19/16 08:15 94 Nasal Cannula 1.50 07/19/16 08:04 1.50 I & O 07/20/16 07:00 Intake Total 640 ml Output Total 1150 ml Balance -510 ml Capillary Refill : General Appearance: No Apparent Distress Other (weak and fragile) HEENT: Normal ENT Inspection Neck: Normal Inspection Respiratory: Chest Non Tender Lungs Clear Normal Breath Sounds No Accessory Muscle Use No Respiratory Distress Cardiovascular: Regular Rate, Rhythm Gastrointestinal: non tender soft Results Lab Laboratory Tests 07/20/16 04:45: Anion Gap 7, BUN/Creatinine Ratio 14, Basophils # (Auto) 0.0, Basophils (%) ( Auto) 0, Blood Urea Nitrogen 12, Calcium Level 7.9L, Carbon Dioxide Level 23, Chloride Level 108H, Creatinine 0.84, Eosinophils # (Auto) 0.1, Eosinophils (%) (Auto) 2, Estimat Glomerular Filtration Rate > 60, Glucose Level 97, Hematocrit 29L, Hemoglobin 8.9L, Lymphocytes # (Auto) 1.1, Lymphocytes (%) (Auto) 20, Mean Corpuscular Hemoglobin 31, Mean Corpuscular Hemoglobin Concent 31L, Mean Corpuscular Volume 100H, Mean Platelet Volume 10.7H, Monocytes # (Auto) 0.6, Monocytes (%) (Auto) 10, Neutrophils # (Auto) 3.8, Neutrophils (%) (Auto) 68, Platelet Count 201, Potassium Level 3.6, Red Blood Count 2.90L, Red Cell Distribution Width 13.0, Sodium Level 138, White Blood Count 5.6 Microbiology 07/17/16 Urine Culture - Preliminary, Resulted Assessment/Plan Assessment/Plan Assess & Plan/Chief Complaint hematuria . UTI. Urine culture no growth. Blindness. Abdominal pain. Diverticulitis. Colitis. Restless legs. Patient put on Cipro and DC'd Rocephin. Patient afebrile. White blood cell count better yesterday. . 07/20/16. Diverticulitis. Colitis better. UTI. Hematuria. Patient afebrile. Patient overall better Diagnosis/Problems: Clinical Quality Measures DVT/VTE Risk/Contraindication: Risk Factor Score Per Nursin RFS Level Per Nursing on Admit: 3=High YNES ARGUELLES DO Jul 20, 2016 08:00
[2016-07-20] MEDS: CIPROFLOXACIN IV 400MG/200ML 200 ML IV SCH ×2 (08:17→21:15)
[2016-07-20] MEDS: HYDROcodone/APAP 7.5 MG/325 MG (LORTAB, LORCET PLUS) TABLET PO SCH ×2 (08:18→20:14)
[2016-07-20] MEDS: PHENAZOPYRIDINE 100 MG (PYRIDIUM) TABLET PO SCH ×3 (08:18→18:20)
[2016-07-20 08:21] VITALS: BP 100/49
[2016-07-20 08:35] LABS: KETONES,URINE NEGATIVE (NEGATIVE); LEUKOCYTE ESTERASE ,URINE 2+ (NEGATIVE); NITRITE,URINE POSITIVE (NEGATIVE); PH,URINE 5 (5-9); PROTEIN,URINE 2+ (NEGATIVE); UROBILINOGEN,URINE 4 MG/DL (NORMAL)
[2016-07-20 08:48] LABS: SQUAMOUS EPITHELIAL CELL,UR 0-2 /HPF
--- NOTE | 2016-07-20 10:19 | Progress Note-Urology ---
Progress Note-Urology Progress Notes/Assess & Plan Progress/Assessment & Plan CT yesterday stable, no new acute findings. cysto tomorrow. consent signed Final Diagnosis gross hematuria, UTIs, incontinence APOLLO WATSON MD Jul 20, 2016 10:19 am
[2016-07-20] MEDS: RT-LEVALBUTEROL (XOPENEX) 1.25 MG/3 ML NEB NON-FORMULARY INH PRN (12:47)
--- NOTE | 2016-07-20 13:23 | Diagnostic Imaging Report ---
INDICATION: Urinary tract infection. Atelectasis. Effusion.. TECHNIQUE: Single view chest 8:17 AM. CORRELATION STUDY: 11/10/2012 FINDINGS: The patient is statis poststernotomy. Heart size is enlarged maybe slightly increased. Vasculature is also slightly increased from prior study. Rather pronounced asymmetric elevation of the right hemidiaphragm is noted. There is atelectasis or infiltrate in both lung bases. Additionally, pleural thickening versus effusion along the left lateral inferior chest wall along with a small right pleural effusion and/or thickening. IMPRESSION: 1. Cardiac enlargement appears increased with vascularity slightly increased from prior study. 2. Probable bilateral pleural effusions, bibasilar areas of atelectasis versus less likely infiltrate. Dictated by: Dictated on workstation # [id number]
[2016-07-20 15:59] VITALS: BP 129/65
[2016-07-20] MEDS: ENOXAPARIN 40 MG/0.4 ML (LOVENOX) SYR SC SCH (20:14)
[2016-07-20] MEDS: FUROSEMIDE 40 MG (LASIX) TAB PO SCH (20:14)
[2016-07-21] VITALS: BP 109/58
[2016-07-21] MEDS: HYDROcodone/APAP 7.5 MG/325 MG (LORTAB, LORCET PLUS) TABLET PO PRN (00:21)
[2016-07-21] MEDS: metroNIDAZOLE 500MG/100ML IVPB 100 ML IV SCH ×3 (04:18→20:14)
[2016-07-21] MEDS: ALPRAZolam 0.25 MG (XANAX) TAB PO PRN ×3 (04:19→21:04)
[2016-07-21 05:39] LABS: BASOPHILS % (AUTO) 0 % (0-10); EOSINOPHILS # (AUTO) 0.1 10^3/uL (0.0-0.3); EOSINOPHILS % (AUTO) 2 % (0-10); LYMPHOCYTES # (AUTO) 0.7 X 10^3 (1.0-4.0); LYMPHOCYTES % (AUTO) 13 % (12-44); MEAN CORPUSCULAR HEMOGLOBIN 30 PG (25-34); MEAN CORPUSCULAR HGB CONC 30 G/DL (32-36); MEAN CORPUSCULAR VOLUME 102 FL (80-99); MEAN PLATELET VOLUME 10.7 FL (7.4-10.4); MONOCYTES # (AUTO) 0.7 X 10^3 (0.0-1.0); MONOCYTES % (AUTO) 12 % (0-12); NEUTROPHILS # (AUTO) 4.3 X 10^3 (1.8-7.8); NEUTROPHILS % (AUTO) 74 % (42-75); PLATELET COUNT 227 10^3/uL (130-400); RED BLOOD COUNT 3.27 10^6/uL (4.35-5.85); RED CELL DISTRIBUTION WIDTH 13.1 % (10.0-14.5); WHITE BLOOD COUNT 5.9 10^3/uL (4.3-11.0)
[2016-07-21 06:08] LABS: ALANINE AMINOTRANSFERASE 14 U/L (0-55); ALBUMIN 3.1 G/DL (3.2-4.5); ANION GAP 8 MMOL/L (5-14); ASPARTATE AMINO TRANSFERASE 23 U/L (5-34); BILIRUBIN,TOTAL 0.3 MG/DL (0.1-1.0); BLOOD UREA NITROGEN 7 MG/DL (7-18); BUN/CREATININE RATIO 8; CALCIUM 8.2 MG/DL (8.5-10.1); CARBON DIOXIDE 26 MMOL/L (21-32); CHLORIDE 107 MMOL/L (98-107); CREATININE SERUM 0.86 MG/DL (0.60-1.30); GFR ESTIMATED > 60; GLUCOSE 94 MG/DL (70-105); POTASSIUM 3.8 MMOL/L (3.6-5.0); SODIUM 141 MMOL/L (135-145); TOTAL PROTEIN 5.5 G/DL (6.4-8.2)
[2016-07-21] MEDS: NS IV 1000 ML 1,000 ML IV SCH ×2 (06:30→09:39)
--- NOTE | 2016-07-21 07:08 | Progress Note-Post Operative ---
Post-Operative Progess Note Pre-Operative Diagnosis Gross hematuria, Incontinence, OAB, ISD, UTIs Post-Operative Diagnosis same, possible I.C Post-Op Procedure Note Date of Procedure: Jul 21, 2016 Name of Procedure: cysto, UD vaginoscopy Anesthesia Type local APOLLO WATSON MD Jul 21, 2016 7:08 am
--- NOTE | 2016-07-21 07:08 | Progress Note-Pre Operative ---
Pre-Operative Progress Note H&P Reviewed The H&P was reviewed, patient examined and no changes noted. Date H&P Reviewed: Jul 21, 2016 Time H&P Reviewed: 07:07 Pre-Operative Diagnosis: Gross hematuria, Incontinence, OAB, ISD, UTIs APOLLO WATSON MD Jul 21, 2016 7:08 am
[2016-07-21 07:47] LABS: BILIRUBIN,URINE 2+ (NEGATIVE)
[2016-07-21] MEDS: LIDOCAINE UROJET 2% GEL 10 ML PKG ONE ×2 (07:52→08:34)
[2016-07-21 08:30] VITALS: BP 112/62
[2016-07-21] MEDS: HYDROcodone/APAP 7.5 MG/325 MG (LORTAB, LORCET PLUS) TABLET PO SCH ×2 (09:30→20:15)
[2016-07-21] MEDS: PHENAZOPYRIDINE 100 MG (PYRIDIUM) TABLET PO SCH ×3 (09:30→18:27)
[2016-07-21] MEDS: FUROSEMIDE 40 MG (LASIX) TAB PO SCH (09:30)
[2016-07-21] MEDS: CIPROFLOXACIN IV 400MG/200ML 200 ML IV SCH (09:30)
[2016-07-21] MEDS ORDERED: BISACODYL 10 MG SUPP (DULCOLAX) PR NR (09:45)
[2016-07-21] MEDS ORDERED: POLYETHYLENE GLYCOL 17 GM (MIRALAX) PACK PO NR (09:45)
--- NOTE | 2016-07-21 10:51 | OPERATIVE REPORT ---
PROCEDURE PHYSICIAN: APOLLO WATSON DATE OF PROCEDURE: 07/21/2016 PREOPERATIVE DIAGNOSIS: Gross hematuria, recurrent UTI, over active bladder, ISD. POSTOPERATIVE DIAGNOSIS: Gross hematuria, recurrent UTI, over active bladder, ISD, possible interstitial cystitis. OPERATION: 1. Cystoscopy. 2. Urethral dilatation. 3. Vaginoscopy. SURGEON: Divine ANESTHESIA: Local. COMPLICATIONS: None. PROCEDURE: With the patient in lithotomy position, the genitalia were prepped and draped in usual sterile fashion. The urethra was infiltrated with lidocaine. A 24-Indonesian sounds passed very easily into the bladder. There were no residual, there was no cystorectocele. There was atrophic senile vaginitis. Cystoscopy was performed with both lenses and the bladder was found to be very small capacity filling up quickly and painful to the patient. There was some diffuse cystitis, some in the dome but no strong evidence or picture of IC, just very suspicious. Ureteric orifice is normal in shape, site and configuration with clear efflux. There was no sling, foreign body, bladder tumor or stone visualized. The bladder was evacuated and vaginoscopy was performed to make sure there were no sling eroding into the vaginal wall and there was none. The vagina was stenotic. The patient tolerated the procedure and anesthesia well and was sent back to her room in stable condition. PLAN: 1. Vesicare 5 mg daily and adjust according to response of the patient. 2. Premarin vaginal cream 0.5 grams at bedtime twice a week. 3. Reevaluate in the office in 4 weeks and adjust Vesicare. Consider Imuran empirically. All of this was explained to the patient. Job ID: [id number] Dictated Date: 07/21/2016 08:06:09 Paper Counter Date: 07/21/2016 10:43:12 / jori
[2016-07-21] MEDS: RT-LEVALBUTEROL (XOPENEX) 1.25 MG/3 ML NEB NON-FORMULARY INH PRN (15:18)
[2016-07-21 15:50] VITALS: BP 95/60
--- NOTE | 2016-07-21 17:39 | Progress Note (SOAP) ---
Subjective Subjective/Events-last exam PT IS A LITTLE GROGGY THIS MORNING, JUST GOT BACK FROM CYSTOSCOPY. DR. WATSON ENTERS THE ROOM, DISCUSSING PT'S FINDINGS DURING THE SCOPE - INTERSTITIAL CYSTITIS. PT REPORTS FEELING A LITTLE BETTER IN HER ABDOMEN FROM HER DIVERTICULITIS FLAIR. Review of Systems General: No Chills, Fatigue Malaise HEENT: No Head Aches Pulmonary: No Dyspnea Cardiovascular: No: Chest Pain Gastrointestinal: : Abdominal Pain: Constipation (NO BOWEL MOVEMENT X 4 DAYS)No : Nausea Genitourinary: Frequency Musculoskeletal: No: back pain Neurological: : WeaknessNo: Confusion Objective Exam Vital Signs Date Time Temp Pulse Resp B/P Pulse Ox O2 Delivery O2 Flow Rate FiO2 07/21/16 15:50 99.1 100 18 95/60 94 Nasal Cannula 1.50 1.50 07/21/16 15:18 91 2.00 07/21/16 08:30 99.0 90 16 112/62 94 Nasal Cannula 1.50 1.50 07/21/16 08:00 Nasal Cannula 2.00 07/21/16 00:00 97.9 72 18 109/58 94 Nasal Cannula 1.50 1.50 07/20/16 20:25 1.50 07/20/16 20:00 Nasal Cannula 2.00 I & O 07/21/16 07:00 Intake Total 1050 ml Output Total 2675 ml Balance -1625 ml Capillary Refill : General Appearance: No Apparent Distress WD/WN Neck: Supple Respiratory: Chest Non Tender Lungs Clear Normal Breath Sounds Cardiovascular: Regular Rate, Rhythm Gastrointestinal: normal bowel sounds tenderness (LLQ) Extremity: Normal Capillary Refill No Pedal Edema Neurologic/Psychiatric: Alert Oriented x3 Normal Mood/Affect Skin: Warm/Dry Lymphatic: No Adenopathy Results Lab Laboratory Tests 07/21/16 05:10: Alanine Aminotransferase (ALT/SGPT) 14, Albumin 3.1L, Alkaline Phosphatase 54, Anion Gap 8, Aspartate Amino Transf (AST/SGOT) 23, BUN/Creatinine Ratio 8, Basophils # (Auto) 0.0, Basophils (%) (Auto) 0, Blood Urea Nitrogen 7, Calcium Level 8.2L, Carbon Dioxide Level 26, Chloride Level 107, Creatinine 0.86, Eosinophils # (Auto) 0.1, Eosinophils (%) (Auto) 2, Estimat Glomerular Filtration Rate > 60, Glucose Level 94, Hematocrit 33L, Hemoglobin 9.8L, Lymphocytes # (Auto) 0.7L, Lymphocytes (%) (Auto) 13, Mean Corpuscular Hemoglobin 30, Mean Corpuscular Hemoglobin Concent 30L, Mean Corpuscular Volume 102H, Mean Platelet Volume 10.7H, Monocytes # (Auto) 0.7, Monocytes (%) (Auto) 12, Neutrophils # (Auto) 4.3, Neutrophils (%) (Auto) 74, Platelet Count 227, Potassium Level 3.8, Red Blood Count 3.27L, Red Cell Distribution Width 13.1, Sodium Level 141, Total Bilirubin 0.3, Total Protein 5.5L, White Blood Count 5.9 Microbiology 07/20/16 MRSA Screen - Final, Complete MRSA not isolated 07/20/16 Urine Culture - Preliminary, Resulted NO GROWTH Assessment/Plan Assessment/Plan Assess & Plan/Chief Complaint HEMATURIA DIVERTICULITIS INTERSTITIAL CYSTITIS URINARY TRACT INFECTION URINARY RETENTION DYSURIA LEUKOCYTOSIS DEHYDRATION - MILD CHRONIC PAIN SYNDROME HYPERTENSION ANXIETY RESTLESS LEG SYNDROME HEMATURIA WITH URINARY TRACT INFECTION AND URINARY RETENTION AND DYSURIA -UA NEGATIVE - CONTINUE WITH TREATMENT PER DR. WATSON. HE HAS RECOMMENDED OVER THE COUNTER MEDICATION CALLED P LEAF - (PEE RELIEF) FOR INTERSTITIAL CYSTITIS, NO SPICY FOODS, NO OR LOW ACIDIC FOODS DIVERTICULITIS - PT DOES NOT TOLERATE CIPRO WELL - WILL STOP CIPRO, INITIALLY WAS GOING TO START ON LEVAQUIN - BUT WILL JUST CONTINUE ON FLAGYL INSTEAD. LEUKOCYTOSIS - IMPROVING - MONITOR DEHYDRATION - MILD - CONTINUE WITH LOWER DOSE OF IV FLUIDS. CHRONIC PAIN SYNDROME - RESTARTED HOME MEDICATIONS HYPERTENSION - RESTARTED TOPROL ANXIETY- RESTARTED ALPRAZOLAM RESTLESS LEG SYNDROME - PT USES ALPRAZOLAM FOR MUSCLE CRAMPS - CONTINUE WITH TREATMENT Diagnosis/Problems: Clinical Quality Measures DVT/VTE Risk/Contraindication: Risk Factor Score Per Nursin RFS Level Per Nursing on Admit: 3=High DONTAE KERN MD Jul 21, 2016 17:39
[2016-07-21] MEDS: ENOXAPARIN 40 MG/0.4 ML (LOVENOX) SYR SC SCH (20:14)
[2016-07-21] MEDS: TOLTERODINE LA 4 MG (DETROL) CAP PO SCH (20:15)
[2016-07-21] MEDS: ESTROGENS CONJ. CREAM 30 GM (PREMARIN) TUBE VG SCH (20:15)
[2016-07-22] VITALS: BP 118/61
[2016-07-22] MEDS: HYDROcodone/APAP 7.5 MG/325 MG (LORTAB, LORCET PLUS) TABLET PO PRN ×3 (01:50→18:49)
[2016-07-22] MEDS: NS IV 1000 ML 1,000 ML IV SCH (01:50)
[2016-07-22] MEDS: metroNIDAZOLE 500MG/100ML IVPB 100 ML IV SCH ×3 (03:58→20:46)
[2016-07-22] MEDS: ALPRAZolam 0.25 MG (XANAX) TAB PO PRN ×3 (05:06→20:47)
[2016-07-22 08:00] VITALS: BP 116/70
[2016-07-22] MEDS: PHENAZOPYRIDINE 100 MG (PYRIDIUM) TABLET PO SCH ×3 (08:07→18:12)
[2016-07-22] MEDS: HYDROcodone/APAP 7.5 MG/325 MG (LORTAB, LORCET PLUS) TABLET PO SCH ×2 (08:07→12:54)
[2016-07-22] MEDS: FUROSEMIDE 40 MG (LASIX) TAB PO SCH (08:07)
[2016-07-22] MEDS ORDERED: BISACODYL 10 MG SUPP (DULCOLAX) PR NR (08:30)
[2016-07-22] MEDS ORDERED: POLYETHYLENE GLYCOL 17 GM (MIRALAX) PACK PO NR (08:30)
--- NOTE | 2016-07-22 08:38 | Progress Note (SOAP) ---
Subjective Subjective/Events-last exam PT CONTINUES TO COMPLAIN OF ABDOMINAL DISCOMFORT. HER DAUGHTER STATES THAT HER MOM HAS BEEN IN PAIN MOST OF THE NIGHT. PER HER DAUGHTER - SHE IS WORRIED ABOUT HER MOM GOING HOME TOO SOON. SHE IS WONDERING IF SHE CAN BE KEPT IN THE HOSPITAL A LITTLE LONGER FOR TREATMENT/ THERAPY. SHE REPORTS THAT HER MOM IS QUITE WEAK. Review of Systems General: Fatigue Malaise HEENT: No Head Aches, No Eye Pain Pulmonary: DyspneaNo Cough Cardiovascular: No: Chest Pain, Palpitations Gastrointestinal: : Abdominal Pain (DISTENDED ABDOMEN): ConstipationNo: Nausea Genitourinary: Frequency Incontinence Musculoskeletal: : back pain: leg pain Neurological: : Weakness Objective Exam Vital Signs Date Time Temp Pulse Resp B/P Pulse Ox O2 Delivery O2 Flow Rate FiO2 07/22/16 06:54 90 2.00 07/22/16 00:00 97.1 86 18 118/61 94 Nasal Cannula 1.50 1.50 07/21/16 22:55 93 1.50 07/21/16 20:20 Nasal Cannula 2.00 07/21/16 15:50 99.1 100 18 95/60 94 Nasal Cannula 1.50 1.50 07/21/16 15:18 91 2.00 I & O 07/22/16 07:00 Intake Total 2110 ml Output Total 800 ml Balance 1310 ml Capillary Refill : General Appearance: WD/WN Mild Distress (WHEN SHIFTING IN SEAT) HEENT: PERRL/EOMI Pharynx Normal Neck: Full Range of Motion Respiratory: Chest Non Tender Decreased Breath Sounds (IN BASES, FAINT CRACKLE ) Cardiovascular: Regular Rate, Rhythm Gastrointestinal: normal bowel sounds distended (TYMPANIC OVER UPPER ABDOMEN) Extremity: Pedal Edema Neurologic/Psychiatric: Alert Oriented x3 No Motor/Sensory Deficits Normal Mood/Affect Skin: Warm/Dry Lymphatic: No Adenopathy Results Lab Microbiology 07/20/16 MRSA Screen - Final, Complete MRSA not isolated 07/20/16 Urine Culture - Preliminary, Resulted NO GROWTH Assessment/Plan Assessment/Plan Assess & Plan/Chief Complaint HEMATURIA DIVERTICULITIS INTERSTITIAL CYSTITIS URINARY TRACT INFECTION URINARY RETENTION DYSURIA LEUKOCYTOSIS DEHYDRATION - MILD CHRONIC PAIN SYNDROME HYPERTENSION ANXIETY RESTLESS LEG SYNDROME HEMATURIA WITH URINARY TRACT INFECTION AND URINARY RETENTION AND DYSURIA -UA NEGATIVE - CONTINUE WITH TREATMENT PER DR. WATSON. HE HAS RECOMMENDED OVER THE COUNTER MEDICATION CALLED P LEAF - (PEE RELIEF) FOR INTERSTITIAL CYSTITIS, NO SPICY FOODS, NO OR LOW ACIDIC FOODS DIVERTICULITIS - PT DOES NOT TOLERATE CIPRO WELL - WILL STOP CIPRO, INITIALLY WAS GOING TO START ON LEVAQUIN - BUT WILL JUST CONTINUE ON FLAGYL INSTEAD. LEUKOCYTOSIS - IMPROVING - MONITOR DEHYDRATION - MILD - CONTINUE WITH LOWER DOSE OF IV FLUIDS. CHRONIC PAIN SYNDROME - RESTARTED HOME MEDICATIONS HYPERTENSION - RESTARTED TOPROL ANXIETY- RESTARTED ALPRAZOLAM RESTLESS LEG SYNDROME - PT USES ALPRAZOLAM FOR MUSCLE CRAMPS - CONTINUE WITH TREATMENT WILL ASK FOR SWING BED EVAL TODAY. IF PT DOES NOT QUALIFY - FAMILY WILL CONSIDER SENIOR LIVING PLACEMENT FOR SHORT TERM THERAPY/REHAB Diagnosis/Problems: Clinical Quality Measures DVT/VTE Risk/Contraindication: Risk Factor Score Per Nursin RFS Level Per Nursing on Admit: 3=High DONTAE KERN MD Jul 22, 2016 08:38
--- NOTE | 2016-07-22 09:25 | Progress Note (SOAP) ---
Subjective Subjective/Events-last exam PT REPORTS CONTINUED WEAKNESS. SHE REPORTS THAT SHE STILL HAS SOME DISCOMFORT WITH URINATION. Review of Systems General: No Chills, Fatigue HEENT: No Head Aches Pulmonary: Dyspnea Cough Cardiovascular: No: Chest Pain Gastrointestinal: No: Abdominal Pain, Nausea Genitourinary: Dysuria Neurological: : Weakness Objective Exam Vital Signs Date Time Temp Pulse Resp B/P Pulse Ox O2 Delivery O2 Flow Rate FiO2 07/22/16 06:54 90 2.00 07/22/16 00:00 97.1 86 18 118/61 94 Nasal Cannula 1.50 1.50 07/21/16 22:55 93 1.50 07/21/16 20:20 Nasal Cannula 2.00 07/21/16 15:50 99.1 100 18 95/60 94 Nasal Cannula 1.50 1.50 07/21/16 15:18 91 2.00 I & O 07/22/16 07:00 Intake Total 2110 ml Output Total 800 ml Balance 1310 ml Capillary Refill : General Appearance: No Apparent Distress WD/WN HEENT: PERRL/EOMI Neck: Supple Respiratory: Chest Non Tender Decreased Breath Sounds Cardiovascular: Regular Rate, Rhythm Gastrointestinal: normal bowel sounds soft tenderness (MID TO LOWER ABDOMEN) Extremity: Pedal Edema Neurologic/Psychiatric: Alert Oriented x3 No Motor/Sensory Deficits Skin: Warm/Dry Lymphatic: No Adenopathy Results Lab Microbiology 07/20/16 MRSA Screen - Final, Complete MRSA not isolated 07/20/16 Urine Culture - Preliminary, Resulted NO GROWTH Assessment/Plan Assessment/Plan Assess & Plan/Chief Complaint HEMATURIA DIVERTICULITIS INTERSTITIAL CYSTITIS URINARY TRACT INFECTION URINARY RETENTION DYSURIA LEUKOCYTOSIS DEHYDRATION - MILD CHRONIC PAIN SYNDROME HYPERTENSION ANXIETY RESTLESS LEG SYNDROME HEMATURIA WITH URINARY TRACT INFECTION AND URINARY RETENTION AND DYSURIA -UA NEGATIVE - CONTINUE WITH TREATMENT PER DR. WATSON. HE HAS RECOMMENDED OVER THE COUNTER MEDICATION CALLED P LEAF - (PEE RELIEF) FOR INTERSTITIAL CYSTITIS, NO SPICY FOODS, NO OR LOW ACIDIC FOODS DIVERTICULITIS - PT DOES NOT TOLERATE CIPRO WELL - WILL STOP CIPRO, INITIALLY WAS GOING TO START ON LEVAQUIN - BUT WILL JUST CONTINUE ON FLAGYL INSTEAD. LEUKOCYTOSIS - IMPROVING - MONITOR DEHYDRATION - MILD - CONTINUE WITH LOWER DOSE OF IV FLUIDS. CHRONIC PAIN SYNDROME - RESTARTED HOME MEDICATIONS HYPERTENSION - RESTARTED TOPROL ANXIETY- RESTARTED ALPRAZOLAM RESTLESS LEG SYNDROME - PT USES ALPRAZOLAM FOR MUSCLE CRAMPS - CONTINUE WITH TREATMENT WILL ASK FOR SWING BED EVAL TODAY. IF PT DOES NOT QUALIFY - FAMILY WILL CONSIDER DETENTION PLACEMENT FOR SHORT TERM THERAPY/REHAB Diagnosis/Problems: Clinical Quality Measures DVT/VTE Risk/Contraindication: Risk Factor Score Per Nursin RFS Level Per Nursing on Admit: 3=High DONTAE KERN MD Jul 22, 2016 09:25
--- NOTE | 2016-07-22 11:11 | Progress Note-Urology ---
Progress Note-Urology Progress Notes/Assess & Plan Progress/Assessment & Plan RECOVERED WELL FROM CYSTO Final Diagnosis GROSS HEMATURIA, OAB, ISD, INCONTINENCE, UTIS, POSSIBLE I.C APOLLO WATSON MD Jul 22, 2016 11:11 am
--- NOTE | 2016-07-22 12:49 | Physical Therapy Evaluation ---
PT Evaluation-General Medical Diagnosis Admission Date Jul 17, 2016 at 17:50 Medical Diagnosis: UTI Onset Date: Jul 17, 2016 Therapy Diagnosis Therapy Diagnosis: general debility/weakness Height/Weight Height (Feet): 5 Height (Inches): 3.00 Weight (Pounds): 158 Weight (Ounces): 0.0 Precautions Precautions/Isolations: Fall Prevention, Standard Precautions, Pressure Ulcer Referral Physician: Alessia Reason for Referral: Evaluation/Treatment Medical History Pertinent Medical History: CABG, HTN, Macular Degenertion Additional Medical History able to see peripherally Current History seen in clinic with bloody urine, fever and weakness Reviewed History: Yes Social History Home: Single Level Current Living Status: Alone (good family/friend support) Entry Into Home: Stairs With Railing PT Steps Into Home: 1 Prior/Core FIM Prior Level of Function Functional Dameron Measure 0=Not Assessed/NA 4=Minimal Assistance 1=Total Assistance 5=Supervision or Setup 2=Maximal Assistance 6=Modified Dameron 3=Moderate Assistance 7=Complete Dameron Bed Mobility: 6 Transfers (B,C,W/C) (FIM): 6 Gait: 6 uses cane or FWW at home PT Evaluation-Current Subjective Patient is very agreeable to participate with PT. Patient states, "I'm weak." Pain Numeric Pain Scale: 0-No Pain Location: No Pain Reported Objective Patient Orientation: Normal For Age Problem Solving: Good Attachments: Oxygen, IV ROM/Strength ROM Lower Extremities bilateral LE WFL Strenght Lower Extremities bilateral LE WFL Integumentary/Posture Integumentary refer to nursing notes Bowel Incontinence: No Bladder Incontinence: Yes Posture kyphotic Neuromuscular (Tone, Coordination, Reflexes) grossly intact coordination Sensory Vision: Blind Legally Hearing: Functional Sensation Right Lower Extremit: Intact Sensation Left Lower Extremity: Intact Transfers Functional Dameron Measure 0=Not Assessed/NA 4=Minimal Assistance 1=Total Assistance 5=Supervision or Setup 2=Maximal Assistance 6=Modified Dameron 3=Moderate Assistance 7=Complete Dameron Transfers (B, C, W/C) (FIM): 3 Scootin Rollin Supine to/from Sit: 3 Sit to/from Stand: 4 Patient is on an air mattress and requires assistance for bilateral LE's Gait Mode of Locomotion: Walk Anticipated Mode of Locomotion: Walk Gait (FIM): 2 Distance (FIM): 2=565-49 ft Distance: 90' Gait Level of Assist: 4 Gait Persons Needed: 1 Gait Assistive Device: FWW Comments/Gait Description CGA for safety and to guide FWW secondary patient is legally blind Balance Sitting Static: Normal Sitting Dynamic: Normal Standing Static: Fair Standing Dynamic: Fair Assessment/Needs 85 y.o. female, will benefit from skilled PT to address functional strength and mobility to improve current LOF and to safely return to home at maximum LOF. Rehab Potential: Good PT Assisted Goals Assisted Goals PT Assisted Goals Time Frame: Aug 01, 2016 Transfers (B,C,W/C) (FIM): 6 Gait (FIM): 6 Gait distance (FIM): 3=150 ft Gait Level of Assist: 6 Gait Assistive Device: FWW, Cane Single Point PT Plan Problem List Problem List: Activity Tolerance, Functional Strength Treatment/Plan Treatment Plan: Continue Plan of Care Treatment Plan: Bed Mobility, Education, Functional Activity Christine, Functional Strength, Gait, Safety, Therapeutic Exercise, Transfers Treatment Duration: Aug 01, 2016 # of days/week 5-6 Visits Per Week: 5-6 Pt/Family Agrees w/Plan: Yes Safety Risks/Education Patient Education: Gait Training, Safety Issues Teaching Recipient: Patient Teaching Methods: Discussion Response to Teaching: Verbalize Understanding Time/GCodes Time In: 1045 Time Out: 1110 Total Billed Treatment Time: 25 [facility] Codes Necessary: SARA Patino PT Jul 22, 2016 12:49
[2016-07-22 16:07] VITALS: BP 108/69
[2016-07-22] MEDS: ENOXAPARIN 40 MG/0.4 ML (LOVENOX) SYR SC SCH (18:49)
[2016-07-22] MEDS: TOLTERODINE LA 4 MG (DETROL) CAP PO SCH (20:47)
[2016-07-22] MEDS: ESTROGENS CONJ. CREAM 30 GM (PREMARIN) TUBE VG SCH (20:47)
[2016-07-23] VITALS: BP 129/70
[2016-07-23] MEDS: HYDROcodone/APAP 7.5 MG/325 MG (LORTAB, LORCET PLUS) TABLET PO PRN (02:41)
[2016-07-23] MEDS: metroNIDAZOLE 500MG/100ML IVPB 100 ML IV SCH (04:50)
[2016-07-23] MEDS: PHENAZOPYRIDINE 100 MG (PYRIDIUM) TABLET PO SCH (07:58)
[2016-07-23] MEDS: FUROSEMIDE 40 MG (LASIX) TAB PO SCH ×2 (07:58→09:00)
[2016-07-23] MEDS: HYDROcodone/APAP 7.5 MG/325 MG (LORTAB, LORCET PLUS) TABLET PO SCH ×2 (07:59→09:00)
[2016-07-23 08:00] VITALS: BP 129/74
--- NOTE | 2016-07-23 09:11 | Discharge Summary ---
Diagnosis/Chief Complaint Date of Admission Jul 17, 2016 at 17:50 Date of Discharge Discharge Date: Jul 23, 2016 Discharge Time: 0910 Admission Diagnosis Admission Diagnosis HEMATURIA URINARY TRACT INFECTION URINARY RETENTION DYSURIA LEUKOCYTOSIS DEHYDRATION - MILD CHRONIC PAIN SYNDROME HYPERTENSION ANXIETY RESTLESS LEG SYNDROME Discharge Diagnosis HEMATURIA URINARY TRACT INFECTION URINARY RETENTION DYSURIA LEUKOCYTOSIS DEHYDRATION - MILD CHRONIC PAIN SYNDROME HYPERTENSION ANXIETY RESTLESS LEG SYNDROME Reason Hospital Visit PT IS AN 85 Y/O FEMALE WHO IS KNOWN TO ME FROM CLINIC. SHE PRESENTED TO CLINIC TODAY WITH COMPLAINT OF WEAKNESS, BLOODY URINE, URINARY RETENTION, AND FEVER AT HOME. SHE REPORTS NIGHT SWEATS LAST NIGHT AND JUST FEELS EXTREMELY POORLY. Discharge Summary Discharge Physical Examination Allergies: Coded Allergies: Sulfa (Sulfonamide Antibiotics) (Verified Allergy, Mild, 03/09/12) codeine (Verified Allergy, Mild, HAS TAKEN LORTAB IN THE PAST, 07/17/16) meclizine (Verified Allergy, Mild, 03/09/12) Penicillins (Unverified Allergy, Unknown, Has received Ancef in the past, 07/17/16) Vitals & I&Os General Appearance: Alert, Oriented X3, Cooperative, No Acute Distress HEENT: Atraumatic Respiratory: Clear to Auscultation, Normal Air Movement Cardiovascular: Regular Rate Abdominal: Normal Bowel Sounds, Soft, No Tenderness Extremities: No Clubbing, Normal Pulses Skin: No Rashes Neuro: Cranial Nerves 3-12 NL Psych/Mental Status: Mental Status NL, Mood NL Hospital Course HEMATURIA DIVERTICULITIS INTERSTITIAL CYSTITIS URINARY TRACT INFECTION URINARY RETENTION DYSURIA LEUKOCYTOSIS DEHYDRATION - MILD CHRONIC PAIN SYNDROME HYPERTENSION ANXIETY RESTLESS LEG SYNDROME HEMATURIA WITH URINARY TRACT INFECTION AND URINARY RETENTION AND DYSURIA -UA NEGATIVE - CONTINUE WITH TREATMENT PER DR. WATSON. HE HAS RECOMMENDED OVER THE COUNTER MEDICATION CALLED P LEAF - (PEE RELIEF) FOR INTERSTITIAL CYSTITIS, NO SPICY FOODS, NO OR LOW ACIDIC FOODS DIVERTICULITIS - PT DOES NOT TOLERATE CIPRO WELL - WILL STOP CIPRO, INITIALLY WAS GOING TO START ON LEVAQUIN - BUT WILL JUST CONTINUE ON FLAGYL INSTEAD. LEUKOCYTOSIS - IMPROVING - MONITOR DEHYDRATION - MILD -IMPROVED WITH IV FLUIDS CHRONIC PAIN SYNDROME - RESTARTED HOME MEDICATIONS HYPERTENSION - RESTARTED TOPROL ANXIETY- RESTARTED ALPRAZOLAM RESTLESS LEG SYNDROME - STABLE ON HOME MEDS Discharge Condition at discharge IMPROVING Instructions to patient/family Please see electonic discharge instructions given to patient. Discharge Medications Reviewed and agree with Discharge Medication list on patient's Discharge Instruction sheet Clinical Quality Measures DVT/VTE Risk/Contraindication: Risk Factor Score Per Nursin RFS Level Per Nursing on Admit: 3=High DONTAE KERN MD Jul 23, 2016 09:10
[2016-07-27] MEDS ORDERED: TOLTA4 PO (09:17)
[2016-07-27] MEDS ORDERED: PRELIEF PO (09:17)
[2016-07-27] MEDS ORDERED: EST30C VG ×2 (09:17→09:19)
[2016-07-27] MEDS ORDERED: LEVA1.2516 INH (09:54)
== END 2016-07-23 09:13 | disposition swing bed (61) | DRG 690 ==
LOC: 4TH 14:48 → 4THo 14:48 → 4TH 17:50
PROVIDERS: ADMIT Family Medicine; ATTEND Family Medicine
PROC: 0UJH8ZZ Inspection of Vagina and Cul-de-sac, Via Natural or Artificial Opening Endoscopic (ICD-10-PCS; 2016-07-21)
PROC: 0TJB8ZZ Inspection of Bladder, Via Natural or Artificial Opening Endoscopic (ICD-10-PCS; principal; 2016-07-21 07:40)
DX: N30.11 Interstitial cystitis (chronic) with hematuria (principal); N36.42 Intrinsic sphincter deficiency (ISD); N32.81 Overactive bladder; R33.9 Retention of urine, unspecified; R32 Unspecified urinary incontinence; N32.89 Other specified disorders of bladder; K57.32 Diverticulitis of large intestine without perforation or abscess without bleeding; K52.9 Noninfective gastroenteritis and colitis, unspecified; E86.0 Dehydration; I10 Essential (primary) hypertension; G89.4 Chronic pain syndrome; G25.81 Restless legs syndrome; F41.9 Anxiety disorder, unspecified
CPT/HCPCS: 36415; 71010; 74020; 74176; 74177; 80048; 80053; 81000; 85007; 85025; 85027; 87081; 87088; 94640; 94664; 94760

== ENCOUNTER 2016-07-23 09:34 | Inpatient (IN) | payer MEDICARE ==
[~2016-07-23] VITALS: Ht 160 cm; Wt 71.7 kg
[~2016-07-23 09:34] MED LIST changes: +ALPR0.254 PO; +CEPH500C PO; +FERR-74 PO; +HYDR-3816 PO; +MULT1TAB60 PO
[2016-07-23] MEDS ORDERED: [UNRECOGNIZED DRUG - OTHER] PO PRN (09:45)
[2016-07-23] MEDS ORDERED: AL HYDROX PO PRN (09:45)
[2016-07-23] MEDS ORDERED: CATHETER FLUSH 10 ML SYR IV PRN (09:45)
[2016-07-23] MEDS ORDERED: HYOSCYAMINE 0.125 MG (LEVSIN) TAB PO PRN (09:45)
[2016-07-23] MEDS ORDERED: ONDANSETRON 4 MG/2 ML (SDV) Z0FRAN IVP PRN (09:45)
[2016-07-23] MEDS ORDERED: ACETAMINOPHEN 500 MG TAB (TYLENOL) PO PRN (09:45)
[2016-07-23] MEDS ORDERED: FUROSEMIDE 40 MG/4 ML INJ (LASIX) IVP NR (09:45)
[2016-07-23] MEDS ORDERED: metroNIDAZOLE 500MG/100ML IVPB 100 ML IV SCH ×3 (09:45→20:00)
--- OUTSIDE RECORDS SUMMARY | 2016-07-23 09:57 | XMS REPORT | Continuity of Care Document ---
Author Author [facility] Organization [facility] Address Unknown Phone Unavailable Care Team Providers Care Gynecologist Name Role Phone DONTAE KERN MD PCP Insurance Providers Payer Name Policy Number Subscriber Name Relationship Wps Medicare [id number] Katie Ramirez 18 Self / Same As Patient Blue [employer] Mc[employer] Supp [id number] Katie Ramirez 18 Self / Same As Patient Advance Directives Directive Response Recorded Date/Time Advance Directives Yes 07/17/16 6:07pm Health Care Power of Senior Operations Analyst Y MACIEJ GOMES -DAUGHTERJUDY 6:07pm Organ Donor No 07/17/16 6:07pm Resuscitation Status DNR-Pt Request 07/17/16 6:07pm Chief Complaint and Reason for Visit Chief Complaint URINARY TRACT INFECTION Reason for Visit Urinary retention Urinary tract infection Problems Active Problems Medical Problem Onset Date Status Mass of right lower leg Unknown Acute Urinary retention Unknown Acute Urinary tract infection Unknown Acute Medications Current Home Medications Medication Dose Units Route Directions Days/Qty Instructions Start Date Potassium Chloride 20 Meq 20 Meq Oral Daily 10/21/12 Rosuvastatin Calcium 10 Mg 10 Mg Oral 1800 10/21/12 Inulin/Sorbitol 2 Gm 2 Gm Oral Daily 11/10/12 Cyanocobalamin (Vitamin B-12) 1,000 Mcg/15 Ml 1 Ml Oral Daily Loperamide Hcl 2 Mg 2 Mg Oral Daily as needed for Diarrhea 08/15/13 Furosemide (Lasix) 40 Mg 40 Mg Oral Daily 11/29/14 Cholecalciferol 2,000 Unit 2,000 Unit Oral Daily 11/29/14 Alprazolam 0.25 Mg 0.25 Mg Oral Bedtime 07/18/16 Hydrocodone/Acetaminophen 1 Each 1 Tab Oral Every 6 Hours as needed for Pain 07/18/16 Multivitamin 1 Each 1 Tab.chew Oral Daily 07/18/16 Ferrous Sulfate 325 Mg 325 Mg Oral Daily 07/18/16 Cephalexin 500 Mg 500 Mg Oral Twice A Day FILLED #60 07-14-16 07/18/16 Past Home Medications Medication Directions Ordered Status Alprazolam 0.5 Mg Tablet, 0.25 Tab Oral Bedtime 03/09/12 Discontinued Hydrocodone Bit/Acetaminophen 1 Each Tablet, 1 Each Oral Three Times A Day And Prn 03/09/12 Discontinued Triamterene/Hctz 1 Each Capsule, 1 Each Oral Daily 03/09/12 Discontinued Estradiol 0.5 Mg Tablet, 0.5 Mg Oral Daily 03/09/12 Discontinued Furosemide (Lasix) 40 Mg Tablet, 1 Each Oral Daily 10/21/12 Discontinued Metoprolol Tartrate (Lopressor) 25 Mg Tablet, 12.5 Mg Oral Daily 10/21/12 Discontinued Acetaminophen/Hydrocodone Bitart 1 Ea Tablet, 7.5-500 Mg Oral Three Times A Day as needed 10/21/12 Discontinued Aspirin 81 Mg Tablet.dr, 81 Mg Oral Daily 10/21/12 Discontinued Temazepam 15 Mg Cap, 15 Mg Oral Bedtime 10/21/12 Discontinued Calcium Polycarbophil 625 Mg Tablet, 625 Mg Oral Daily 10/21/12 Discontinued Estradiol 10 Mcg Tablet, 0.5 Mcg Vaginal Every 7 Days 10/21/12 Discontinued Enalapril Maleate 2.5 Mg Tablet, 2.5 Mg Oral Daily 10/21/12 Discontinued Furosemide (Lasix) 80 Mg Tablet, 40 Mg Oral Daily 11/10/12 Discontinued Ca Cmb No.1/Vit D3/B-6/Fa/B12 1 Each Tablet, 1000 Unit Oral Bedtime 11/10/12 Discontinued Multivitamins W-Iron 1 Tab.chew Tab.chew, 2 Tab.chew Oral Daily 11/10/12 Discontinued Hydrocortisone/Pramoxine 30 Gm Cream.gm., 0 Rectal Four Times Daily Discontinued Acetaminophen/Hydrocodone Bitart 1 Ea Tablet, 1 Ea Oral Every 4HRS 08/16/13 Discontinued Docusate Sodium 100 Mg Capsule, 100 Mg Oral Twice A Day 08/16/13 Discontinued Social History Social History Problem Response Recorded Date/Time Alcohol Use Denies Use 07/17/2016 7:15pm Recreational Drug Use No 12/05/2014 9:51am Recent Foreign Travel No 07/17/2016 6:23pm Recent Infectious Disease Exposure No 07/17/2016 7:15pm Smoking Status Never a Smoker 07/17/2016 6:05pm Recent Hopitalizations No 07/17/2016 7:15pm Query Response Start Date Stop Date Smoking Status Never a Smoker Hospital Discharge Instructions No hospital discharge instructions. Plan of Care Discharge Date 07/23/16 9:13am Disposition 61 MEDICARE SWING BED Instructions/Education Provided Diverticulitis Prescriptions See Medication Section Functional Status Query Response Date Recorded Patient Orientation Normal For Age July 22, 2016 12:51pm Patient Orientation Person Place Time Situation July 23, 2016 9:33am Comprehension Ability Understands Concepts July 22, 2016 8:00am Allergies, Adverse Reactions, Alerts Allergen Type Severity Reaction Status Last Updated Penicillins ([id number]) Allergy Unknown Has received Ancef in the past Active 07/17/16 Sulfa (Sulfonamide Antibiotics) ([id number]) Allergy Mild Active Codeine Allergy Mild HAS TAKEN LORTAB IN THE PAST Active 07/17/16 meclizine ([id number]) Allergy Mild Active 03/09/12 Immunizations No immunization records. Vital Signs Acute Vital Signs Vital Response Date/Time Temperature (Fahrenheit) 97.4 degrees F (97.6 - 99.5) 07/23/2016 8:00am Temperature (Calculated Celsius) 36.23131 degrees C (36.4 - 37.5) 07/23/2016 8:00am Temperature Source Tympanic 07/23/2016 8:00am Pulse Rate (adult) 78 bpm (60 - 90) 07/23/2016 8:00am Respiratory Rate 22 bpm (12 - 24) 07/23/2016 8:00am O2 Sat by Pulse Oximetry 92 % (88 - 100) 07/23/2016 8:00am Blood Pressure 129/74 mm Hg 07/23/2016 8:00am Blood Pressure Mean 92 mm Hg 07/23/2016 8:00am Pain Numeric Pain Scale 5-Moderate Pain 07/23/2016 8:00am Height (Feet) 5 feet 07/17/2016 6:23pm Height (Inches) 3.00 inches 07/17/2016 6:23pm Height (Calculated Centimeters) 160.287318 cm 07/17/2016 6:23pm Weight (Pounds) 158 pounds 07/17/2016 6:23pm Weight (Ounces) 0.0 oz 07/17/2016 6:23pm Weight (Calculated Grams) 20960.60 gm 07/17/2016 6:23pm Weight (Calculated Kilograms) 71.185017 kilograms 07/17/2016 6:23pm Calculated BMI 28.0 07/17/2016 6:23pm Results Laboratory Results Test Name Result Units Flags Reference Collection Date/Time Result Date/ Time Comments White Blood Count 5.9 10^3/uL 4.3-11.0 07/21/2016 5:07/21/2016 5: 39am Red Blood Count 3.27 10^6/uL L 4.35-5.85 07/21/2016 5:07/21/2016 5: 39am Hemoglobin 9.8 G/DL L 11.5-16.0 07/21/2016 5:07/21/2016 5:39am Hematocrit 33 % L 35-52 07/21/2016 5:07/21/2016 5:39am Mean Corpuscular Volume 102 FL H 80-99 07/21/2016 5:07/21/2016 5: 39am Mean Corpuscular Hemoglobin 30 PG 25-34 07/21/2016 5:07/21/2016 5: 39am Mean Corpuscular Hemoglobin Concent 30 G/DL L 32-36 07/21/2016 5: 5:39am Red Cell Distribution Width 13.1 % 10.0-14.5 07/21/2016 5:2016 5:39am Platelet Count 227 10^3/uL 130-400 07/21/2016 5:07/21/2016 5:39am Mean Platelet Volume 10.7 FL H 7.4-10.4 07/21/2016 5:07/21/2016 5: 39am Neutrophils (%) (Auto) 74 % 42-75 07/21/2016 5:07/21/2016 5:39am Lymphocytes (%) (Auto) 13 % 12-44 07/21/2016 5:10am 07/21/2016 5:39am Monocytes (%) (Auto) 12 % 0-12 07/21/2016 5:10am 07/21/2016 5:39am Eosinophils (%) (Auto) 2 % 0-10 07/21/2016 5:10am 07/21/2016 5:39am Basophils (%) (Auto) 0 % 0-10 07/21/2016 5:10am 07/21/2016 5:39am Neutrophils # (Auto) 4.3 X 10^3 1.8-7.8 07/21/2016 5:10am 07/21/2016 5: 39am Lymphocytes # (Auto) 0.7 X 10^3 L 1.0-4.0 07/21/2016 5:10a07/21/2016 5: 39am Monocytes # (Auto) 0.7 X 10^3 0.0-1.0 07/21/2016 5:10a07/21/2016 5: 39am Eosinophils # (Auto) 0.1 10^3/uL 0.0-0.3 07/21/2016 5:10a07/21/2016 5 :39am Basophils # (Auto) 0.0 10^3/uL 0.0-0.1 07/21/2016 5:10am 07/21/2016 5: 39am Neutrophils % (Manual) 68 % 07/17/2016 3:29pm 07/17/2016 3:54pm Band Neutrophils 2 % 07/17/2016 3:29pm 07/17/2016 3:54pm Lymphocytes % (Manual) 21 % 07/17/2016 3:29pm 07/17/2016 3:54pm Monocytes % (Manual) 8 % 07/17/2016 3:29pm 07/17/2016 3:54pm Eosinophils % (Manual) 0 % 07/17/2016 3:29pm 07/17/2016 3:54pm Basophils % (Manual) 1 % 07/17/2016 3:29pm 07/17/2016 3:54pm Blood Morphology Comment NORMAL 07/17/2016 3:29pm 07/17/2016 3: 54pm Urine Color ORANGE * 07/20/2016 8:23am 07/20/2016 8:49am Urine Clarity SLIGHTLY CLOUDY 07/20/2016 8:07/20/2016 8:49am Urine pH 5 5-9 07/20/2016 8:07/20/2016 8:49am Urine Specific [place] 1.015 * 1.016-1.022 07/20/2016 8:2016 8:49am Urine Protein 2+ * NEGATIVE 07/20/2016 8:07/20/2016 8:49am Urine Glucose (UA) NEGATIVE NEGATIVE 07/20/2016 8:07/20/2016 8: 49am Urine RBC (Auto) 3+ * NEGATIVE 07/20/2016 8:07/20/2016 8:49am Urine Ketones NEGATIVE NEGATIVE 07/20/2016 8:07/20/2016 8:49am Urine Nitrite POSITIVE * NEGATIVE 07/20/2016 8:07/20/2016 8:49am Urine Bilirubin 2+ * NEGATIVE 07/20/2016 8:07/21/2016 7:47am CONFIRMATORY ICTOTEST IS NEGATIVE. --- 07/21/16 0747 --- UR BILI previously reported as: 2+ * Urine Urobilinogen 4 MG/DL * NORMAL 07/20/2016 8:07/20/2016 8:49am Urine Leukocyte Esterase 2+ * NEGATIVE 07/20/2016 8:07/20/2016 8: 49am Urine RBC 5-10 /HPF * 07/20/2016 8:07/20/2016 8:49am Urine WBC 10-25 /HPF * 07/20/2016 8:07/20/2016 8:49am Urine Bacteria TRACE /HPF 07/20/2016 8:07/20/2016 8:49am Urine Squamous Epithelial Cells 0-2 /HPF 07/20/2016 8:2016 8:49am Urine Crystals NONE /LPF 07/20/2016 8:07/20/2016 8:49am Urine Casts NONE /LPF 07/20/2016 8:07/20/2016 8:49am Urine Mucus NEGATIVE /LPF 07/20/2016 8:07/20/2016 8:49am Urine Culture Indicated YES 07/20/2016 8:07/20/2016 8:49am Sodium Level 141 MMOL/L 135-145 07/21/2016 5:07/21/2016 6:12am Potassium Level 3.8 MMOL/L 3.6-5.0 07/21/2016 5:07/21/2016 6:12am Chloride Level 107 MMOL/L 98-107 07/21/2016 5:07/21/2016 6:12am Carbon Dioxide Level 26 MMOL/L 21-32 07/21/2016 5:07/21/2016 6: 12am Anion Gap 8 MMOL/L 5-14 07/21/2016 5:07/21/2016 6:12am Blood Urea Nitrogen 7 MG/DL 7-18 07/21/2016 5:07/21/2016 6:12am Creatinine 0.86 MG/DL 0.60-1.30 07/21/2016 5:07/21/2016 6:12am BUN/Creatinine Ratio 8 07/21/2016 5:07/21/2016 6:12am Estimat Glomerular Filtration Rate > 60 07/21/2016 5:2016 6:12am GFR INTERPRETIVE DATA UNITS FOR ESTIMATED GFR (eGFR): mL/min/1.73 M2 REFERENCE RANGE FOR ESTIMATED GFR (eGFR) eGFR NORMAL eGFR >60 MODERATELY DECREASED eGFR 30-59 SEVERLY DECREASED eGFR 15-29 KIDNEY FAILURE <15 (OR DIALYSIS) Glucose Level 94 MG/DL 70-105 07/21/2016 5:07/21/2016 6:12am Calcium Level 8.2 MG/DL L 8.5-10.1 07/21/2016 5:07/21/2016 6:12am Total Bilirubin 0.3 MG/DL 0.1-1.0 07/21/2016 5:07/21/2016 6:12am Alkaline Phosphatase 54 U/L 40-136 07/21/2016 5:07/21/2016 6:12am Aspartate Amino Transf (AST/SGOT) 23 U/L 5-34 07/21/2016 5:2016 6:12am Alanine Aminotransferase (ALT/SGPT) 14 U/L 0-55 07/21/2016 5:07/21 6:12am Total Protein 5.5 G/DL L 6.4-8.2 07/21/2016 5:10am 07/21/2016 6:12am Albumin 3.1 G/DL L 3.2-4.5 07/21/2016 5:10am 07/21/2016 6:12am Microbiology Results Procedure Source Result Collection Date/Time Result Date/Time Urine Culture Urine, Indwelling Cath (Detention) AEROCOCCUS URINAE 2016 3:45pm 07/22/2016 1:39pm CORYNEBACTERIUM SPECIES 07/17/2016 3:45pm 07/22/2016 1:39pm Urine Culture Urine, Clean Catch NO GROWTH 07/20/2016 8:23am 07/21/2016 10: 55am MRSA Screen Nasal MRSA not isolated 07/20/2016 9:30am 07/21/2016 2:04pm Procedures No known history of procedures. Encounters Encounter Location Arrival/Admit Date Discharge/Depart Date Attending Provider Discharged Inpatient [facility] 07/17/16 5:50pm 9:13am DONTAE KERN MD Recent Diagnosis Urinary retention Urinary tract infection
--- NOTE | 2016-07-23 11:44 | Physical Therapy Progress Note ---
Therapy Progress Note Swing bed evaluation attempted but patient would like to wait until this afternoon due to urinary issues. Will try back this afternoon. NITHIN RAMIREZ PT Jul 23, 2016 11:44
[2016-07-23] MEDS ORDERED: metroNIDAZOLE 500MG/100ML IVPB 100 ML ONE (14:50)
[2016-07-23] MEDS: PHENAZOPYRIDINE 100 MG (PYRIDIUM) TABLET PO SCH ×2 (14:56→18:23)
[2016-07-23] MEDS: HYDROcodone/APAP 7.5 MG/325 MG (LORTAB, LORCET PLUS) TABLET PO PRN (14:56)
--- NOTE | 2016-07-23 14:56 | Physical Therapy Evaluation ---
PT Evaluation-General Medical Diagnosis Admission Date Jul 23, 2016 at 09:34 Medical Diagnosis: UTI Onset Date: Jul 17, 2016 Therapy Diagnosis Therapy Diagnosis: impaired mobility, strength, endurance Height/Weight Height (Feet): 5 Height (Inches): 3.00 Weight (Pounds): 158 Weight (Ounces): 0.0 Referral Physician: Afsaneh Aggarwal MD Reason for Referral: Evaluation/Treatment Medical History Pertinent Medical History: CABG, HTN, Macular Degenertion Current History seen in clinic with bloody urine, fever and weakness Reviewed History: Yes Social History Home: Single Level Current Living Status: Alone Entry Into Home: Stairs With Railing PT Steps Into Home: 1 Patient states she has a lot of help from friends and family Prior/Core FIM Prior Level of Function Functional [place] Measure 0=Not Assessed/NA 4=Minimal Assistance 1=Total Assistance 5=Supervision or Setup 2=Maximal Assistance 6=Modified [place] 3=Moderate Assistance 7=Complete [place] Bed Mobility: 6 Transfers (B,C,W/C) (FIM): 6 Gait: 6 Patient used a single point cane but has a rolling walker also. PT Evaluation-Current Subjective Patient in recliner pre tx, agrees to PT. Pleasant and cooperative. She states she has some back pain but has had that for years. Pt/Family Goals "to get stronger so she can go home" Objective Patient Orientation: Normal For Age Attachments: Oxygen 2L of O2 nasal canula ROM/Strength ROM Lower Extremities WNL Strenght Lower Extremities 4/5 gross strength bilateral lower extremities Neuromuscular (Tone, Coordination, Reflexes) WNL Sensory Vision: Blind Legally Hearing: Functional Sensation Right Lower Extremit: Impaired Sensation Left Lower Extremity: Impaired Sensation Lower Extremities Patient has impaired light touch sensation bilaterally below the knees, she states she probably has neuropathy. Transfers Functional [place] Measure 0=Not Assessed/NA 4=Minimal Assistance 1=Total Assistance 5=Supervision or Setup 2=Maximal Assistance 6=Modified [place] 3=Moderate Assistance 7=Complete [place] Transfers (B, C, W/C) (FIM): 3 Scootin Rollin Supine to/from Sit: 3 Sit to/from Stand: 4 bed t/f WC(FIM only if WC use): 3 Sit to Lying (QC): 2 Lying to Sitting/Side of Bed(Q: 2 Sit to Stand (QC): 3 Chair/Cyl-rt-Dzkeu Xfer(QC): 3 Mod assist for supine <-> sit, min assist for all other bed mobility and transfers, cues for safety and hand placement. Patient was very fatigued and SOB after transferring from the chair to bed. Gait Does the Patient Walk?: Yes Mode of Locomotion: Walk Anticipated Mode of Locomotion: Walk Gait (FIM): 4 Distance: 150' Walk 50 ft with 2 Turns(QC): 4 Walk 150 ft (QC): 4 Gait Level of Assist: 4 (CGA) Gait Persons Needed: 1 Gait Assistive Device: FWW Comments/Gait Description slow, patient may need an occasional standing rest break Balance Sitting Static: Good Sitting Dynamic: Good Standing Static: Fair Standing Dynamic: Fair Treatment Bilateral lower extremity bed exercises x 20 (AP, HS, hip abduction) Assessment/Needs Patient has impaired mobility, strength, and endurance. She gets SOB easily and needs occasional rest breaks. Rehab Potential: Fair PT [facility] Goals Energy Assistant Goals PT [facility] Goals Time Frame: Jul 30, 2016 Transfers (B,C,W/C) (FIM): 4 Sit to Lying (QC): 4 Lying-Sitting on Side/Bed(QC): 4 Sit to Stand (QC): 4 Rollin Chair/Ahg-hs-Yxtjq Xfer(QC): 4 Gait (FIM): 5 Distance: 200' Walk 50ft with 2 Turns (QC): 4 Walk 150 ft (QC): 4 Gait Level of Assist: 5 Gait Assistive Device: FWW PT Plan Problem List Problem List: Activity Tolerance, Functional Strength, Safety, Balance, Gait, Transfer, Bed Mobility Treatment/Plan Treatment Plan: Continue Plan of Care Treatment Plan: Bed Mobility, Education, Functional Activity Christine, Functional Strength, Gait, Safety, Therapeutic Exercise, Transfers Treatment Duration: Jul 30, 2016 # of days/week 5-6 Visits Per Week: 10-11 Minutes/Day (M-F): 15-30 Minutes/Day (Sat/Perez): 15-30 Pt/Family Agrees w/Plan: Yes Safety Risks/Education Patient Education: Gait Training, Transfer Techniques, Safety Issues Teaching Recipient: Patient Teaching Methods: Demonstration, Discussion Response to Teaching: Reinforcement Needed Discharge Recommendations Plan Patient will perform bed mobility and transfer training, balance and endurance training, functional strengthening, stair training, gait training, education, to improve functional mobility and independence at home. Therapy D/C Recommendations: Home w/ Family Support Time/GCodes Time In: 1425 Time Out: 1455 Total Billed Treatment Time: 30 Total Billed Treatment 1 visit EVL 15 min GT 15 min NITHIN RAMIREZ PT Jul 23, 2016 14:55
--- NOTE | 2016-07-23 15:05 | Occupational Therapy Eval ---
OT Evaluation-General/PLF Medical Diagnosis Admission Date Jul 23, 2016 at 09:34 Onset Date: Jul 17, 2016 Therapy Diagnosis Therapy Diagnosis: impaired self care skills Height/Weight Height (Feet): 5 Height (Inches): 3.00 Weight (Pounds): 158 Weight (Ounces): 0.0 Referral Physician: Alessia Medical History Pertinent Medical History: CABG, HTN, Macular Degenertion Additional Medical History bladder repair x2, inguinal hernia repair x2, TKA, Diverticulitis, anxiety Reviewed History: Yes Social History Home: Single Level Current Living Status: Alone Entry Into Home: Stairs With Railing Steps Into Home: 1 ADL-Prior Level of Function ADL PLOF Comments Pt reports being independent with basic self care. Does have assist with showering. Can complete simple kitchen tasks. Friends assist with shopping and banking. Pt has macular degeneration and states she has no vision other than minimal peripheral vision, but is able to function well in her home since she knows where everything is. Uses a cane for most mobility, but has a 4WW if needed. DME/Equipment: Bath Chair, Grab Bars, Shower, Toilet/[address] Self: No OT Current Status Subjective Pt in bed, agrees to therapy. PT reports 6/10 generalized pain, but mostly in back. Mental Status/Objective Patient Orientation: Person, Place Attachments: Oxygen Current Dentures/Partials: Yes Hand Dominance: Right ADL-Treatment ADL-Current Pt incontinent of urine while in bed. Assist required for hygiene and to don clean brief. Supine to sit with moderate assistance. Assist required to don socks. Sit to stand with minimal assistance. Transfer to chair with minimal assistance using FWW, cues for safety. Pt sitting in chair with needs met and sister present after session. Functional [place] Measure 0=Not Assessed/NA 4=Minimal Assistance 1=Total Assistance 5=Supervision or Setup 2=Maximal Assistance 6=Modified [place] 3=Moderate Assistance 7=Complete IndependenceIRFPAI Quality Coding Scale 6 Independent with activity with or without an assistive device 5 Patient requires set up or clean up by helper. Patient completes activity by themselves 4 Supervision or touching assist (CGA). [place] provide cues , steadying assist 3 The helper provides less than half the effort to complete the activity 2 The helper provides more than half the effort to complete the activity 1 Dependent. The helper does all the effort to complete an activity 7 Patient refused to complete or attempt activity 9 The patient did not perform the activity before the current illness or injury 88 Not attempted due to Medical conditions or safety concerns Education OT Patient Education: Rehab process Teaching Recipient: Patient Teaching Methods: Discussion Response to Teaching: Verbalize Understanding OT Short Term Goals Short Term Goals 1=Demonstrate adherence to instructed precautions during ADL tasks. 2=Patient will verbalize/demonstrate understanding of assistive devices/ modifications for ADL. 3=Patient will improve strength/tolerance for activity to enable patient to perform ADL's. OT Jail Goals Jail Goals Time Frame: Aug 13, 2016 Eating (FIM): 5 Eating (QC): 5 Oral Hygiene (QC): 5 Grooming(FIM): 5 Toileting Hygiene (QC): 4 Upper Body Dressing(FIM): 5 Lower Body Dressing(FIM): 5 Toilet/Commode Transfer(FIM): 5 Toilet/Commode Transfer (QC): 4 Additional Goals: 1-Demonstrate ADL Tasks, 2-Verbalize Understanding, 3- ImproveStrength/Christine 1=Demonstrate adherence to instructed precautions during ADL tasks. 2=Patient will verbalize/demonstrate understanding of assistive devices/ modifications for ADL. 3=Patient will improve strength/tolerance for activity to enable patient to perform ADL's. OT Education/Plan Problem List/Assessment Assessment: Decreased Activ Tolerance, Decreased UE Strength, Dependent Transfers, Impaired Self-Care Skills Pt to benefit from skilled OT intervention for ADL training, transfers, strengthening, and safety education to maximize level of function and allow safe discharge plan. Discharge Recommendations Plan/Recommendations: Continue POC Treatment Plan/Plan of Care Treatment,Training & Education: Yes Patient would benefit from OT for education, treatment and training to promote independence in ADL's, mobility, safety and/or upper extremity function for ADL' s. Plan of Care: ADL Retraining, Functional Mobility, UE Funct Exercise/Act Treatment Duration: Aug 13, 2016 # of days/week 5 Visits Per Week: 5 Agreement: Yes Rehab Potential: Fair Time/GCodes Start Time: 13:19 Stop Time: 13:43 Total Time Billed (hr/min): 24 Billed Treatment Time 1 visit, EVL(9minutes), ADL(15minutes) NEELAM RAMEY OT Jul 23, 2016 15:05
[2016-07-23 17:30] VITALS: BP 124/65
[2016-07-23 18:00] VITALS: BP 124/65
[2016-07-23] MEDS: ENOXAPARIN 40 MG/0.4 ML (LOVENOX) SYR SC SCH (18:24)
[2016-07-23] MEDS ORDERED: ZINC OXIDE 16% OINT (BUTT PASTE) 113 GM TUBE TOP PRN (19:00)
[2016-07-23] MEDS: TOLTERODINE LA 4 MG (DETROL) CAP PO SCH (20:53)
[2016-07-23] MEDS: ESTROGENS CONJ. CREAM 30 GM (PREMARIN) TUBE VG SCH (20:54)
[2016-07-23] MEDS: ALPRAZolam 0.25 MG (XANAX) TAB PO PRN (20:54)
[2016-07-23] MEDS: HYDROcodone/APAP 7.5 MG/325 MG (LORTAB, LORCET PLUS) TABLET PO SCH (21:00)
[2016-07-24] MEDS: HYDROcodone/APAP 7.5 MG/325 MG (LORTAB, LORCET PLUS) TABLET PO PRN ×2 (00:24→12:16)
[2016-07-24] MEDS: ALPRAZolam 0.25 MG (XANAX) TAB PO PRN ×2 (04:47→21:21)
[2016-07-24 05:42] LABS: MEAN PLATELET VOLUME 11.1 FL (7.4-10.4); RED BLOOD COUNT 3.17 10^6/uL (4.35-5.85); RED CELL DISTRIBUTION WIDTH 12.9 % (10.0-14.5); WHITE BLOOD COUNT 3.9 10^3/uL (4.3-11.0)
[2016-07-24 05:57] LABS: ALANINE AMINOTRANSFERASE 12 U/L (0-55); ANION GAP 10 MMOL/L (5-14); ASPARTATE AMINO TRANSFERASE 24 U/L (5-34); BILIRUBIN,TOTAL 0.3 MG/DL (0.1-1.0); BLOOD UREA NITROGEN 11 MG/DL (7-18); BUN/CREATININE RATIO 14; CALCIUM 8.1 MG/DL (8.5-10.1); CARBON DIOXIDE 25 MMOL/L (21-32); CHLORIDE 105 MMOL/L (98-107); CREATININE SERUM 0.76 MG/DL (0.60-1.30); GFR ESTIMATED > 60; GLUCOSE 94 MG/DL (70-105); POTASSIUM 3.4 MMOL/L (3.6-5.0); SODIUM 140 MMOL/L (135-145); TOTAL PROTEIN 5.4 G/DL (6.4-8.2)
[2016-07-24 08:00] VITALS: BP 115/73
[2016-07-24] MEDS: PHENAZOPYRIDINE 100 MG (PYRIDIUM) TABLET PO SCH ×3 (08:43→18:56)
[2016-07-24] MEDS: HYDROcodone/APAP 7.5 MG/325 MG (LORTAB, LORCET PLUS) TABLET PO SCH ×2 (08:43→20:23)
[2016-07-24] MEDS: FUROSEMIDE 40 MG (LASIX) TAB PO SCH (08:43)
[2016-07-24] MEDS: RT-LEVALBUTEROL (XOPENEX) 1.25 MG/3 ML NEB NON-FORMULARY INH PRN (08:45)
--- NOTE | 2016-07-24 09:26 | Progress Note (SOAP) ---
Subjective Subjective/Events-last exam PT STATES THAT SHE IS STILL FEELING A LITTLE PAIN IN HER LEFT LOWER ABDOMEN, BUT IT DOES FEEL BETTER TODAY COMPARED TO PREVIOUSLY. Review of Systems General: Fatigue Malaise HEENT: No Head Aches Pulmonary: No Dyspnea, No Cough Cardiovascular: No: Chest Pain Gastrointestinal: : Abdominal PainNo: Nausea Neurological: : WeaknessNo: Confusion Objective Exam Vital Signs Date Time Temp Pulse Resp B/P Pulse Ox O2 Delivery O2 Flow Rate FiO2 07/24/16 08:45 92 2.00 07/23/16 21:25 95 Nasal Cannula 2.00 07/23/16 18:00 98.0 78 20 124/65 95 Nasal Cannula 2.00 07/23/16 10:17 2.00 I & O 07/24/16 06:59 Intake Total 1040 ml Output Total 50 ml Balance 990 ml Capillary Refill : General Appearance: WD/WN HEENT: PERRL/EOMI Pharynx Normal Neck: Full Range of Motion Normal Inspection Non Tender Supple Respiratory: Chest Non Tender Lungs Clear Normal Breath Sounds Cardiovascular: Regular Rate, Rhythm Gastrointestinal: normal bowel sounds soft tenderness (LOWER ABDOMEN ON LEFT) Neurologic/Psychiatric: Alert Oriented x3 No Motor/Sensory Deficits Normal Mood/Affect Skin: Warm/Dry Lymphatic: No Adenopathy Results Lab Laboratory Tests 07/24/16 05:25: Alanine Aminotransferase (ALT/SGPT) 12, Albumin 3.0L, Alkaline Phosphatase 43, Anion Gap 10, Aspartate Amino Transf (AST/SGOT) 24, BUN/Creatinine Ratio 14, Blood Urea Nitrogen 11, Calcium Level 8.1L, Carbon Dioxide Level 25, Chloride Level 105, Creatinine 0.76, Estimat Glomerular Filtration Rate > 60, Glucose Level 94, Hematocrit 32L, Hemoglobin 9.7L, Mean Corpuscular Hemoglobin 31, Mean Corpuscular Hemoglobin Concent 31L, Mean Corpuscular Volume 100H, Mean Platelet Volume 11.1H, Platelet Count 102L, Potassium Level 3.4L, Red Blood Count 3.17L, Red Cell Distribution Width 12.9, Sodium Level 140, Total Bilirubin 0.3, Total Protein 5.4L, White Blood Count 3.9L Assessment/Plan Assessment/Plan Assess & Plan/Chief Complaint HEMATURIA DIVERTICULITIS INTERSTITIAL CYSTITIS URINARY TRACT INFECTION URINARY RETENTION DYSURIA LEUKOCYTOSIS DEHYDRATION - MILD CHRONIC PAIN SYNDROME HYPERTENSION ANXIETY RESTLESS LEG SYNDROME HEMATURIA WITH URINARY TRACT INFECTION AND URINARY RETENTION AND DYSURIA -UA NEGATIVE - CONTINUE WITH TREATMENT PER DR. WATSON. HE HAS RECOMMENDED OVER THE COUNTER MEDICATION CALLED P LEAF - (PEE RELIEF) FOR INTERSTITIAL CYSTITIS, NO SPICY FOODS, NO OR LOW ACIDIC FOODS DIVERTICULITIS - CONTINUE ON FLAGYL. LEUKOCYTOSIS - IMPROVING - MONITOR DEHYDRATION - MILD - CONTINUE WITH LOWER DOSE OF IV FLUIDS. CHRONIC PAIN SYNDROME - RESTARTED HOME MEDICATIONS HYPERTENSION - RESTARTED TOPROL ANXIETY- RESTARTED ALPRAZOLAM RESTLESS LEG SYNDROME - PT USES ALPRAZOLAM FOR MUSCLE CRAMPS - CONTINUE WITH TREATMENT Diagnosis/Problems: DONTAE KERN MD Jul 24, 2016 09:26
--- NOTE | 2016-07-24 11:40 | Physical Therapy Daily Note ---
PT Daily Note-Current Subjective Patient is in bed and agrees to PT. Patient is incontinent urine and requires assistance to cleanse and change patient. Pain Numeric Pain Scale: 0-No Pain Location: No Pain Reported Mental Status Patient Orientation: Normal For Age Attachments: Oxygen Transfers Functional [place] Measure 0=Not Assessed/NA 4=Minimal Assistance 1=Total Assistance 5=Supervision or Setup 2=Maximal Assistance 6=Modified [place] 3=Moderate Assistance 7=Complete IndependenceIRFPAI Quality Coding Scale 6 Independent with activity with or without an assistive device 5 Patient requires set up or clean up by helper. Patient completes activity by themselves 4 Supervision or touching assist (CGA). [place] provide cues , steadying assist 3 The helper provides less than half the effort to complete the activity 2 The helper provides more than half the effort to complete the activity 1 Dependent. The helper does all the effort to complete an activity 7 Patient refused to complete or attempt activity 9 The patient did not perform the activity before the current illness or injury 88 Not attempted due to Medical conditions or safety concerns Transfers (B, C, W/C) (FIM): 4 Scootin Roll Left to Right (QC): 5 Supine to/from Sit: 4 Sit to/from Stand: 5 Sit to Stand (QC): 5 Chair/Kdb-dv-Falyz Xfer(QC): 5 Bed to/from Chair: 5 Gait Training Does the Patient Walk?: Yes Gait (FIM): 2 Distance (FIM): 5=510-00 ft Distance: 75' Gait Level of Assist: 4 Gait Persons Needed: 1 Gait Assistive Device: FWW CGA for safety; steady, functional gait sequence Exercises Seated Therapy Exercises: Ankle pumps, Long arc quads, Hip flexion Seated Reps: 20 (2 sets) Assessment Patient tolerated treatment well and is up in recliner with needs met. PT to continue to address functional strength and mobility to ensure safe return to home. PT [facility] Goals Box Car Washer Goals PT Box Car Washer Goals Time Frame: Jul 30, 2016 Transfers (B,C,W/C) (FIM): 4 Sit to Lying (QC): 4 Lying-Sitting on Side/Bed(QC): 4 Sit to Stand (QC): 4 Rollin Chair/Axr-ib-Liozn Xfer(QC): 4 Gait (FIM): 5 Distance: 200' Walk 50ft with 2 Turns (QC): 4 Walk 150 ft (QC): 4 Gait Level of Assist: 5 Gait Assistive Device: FWW PT Plan Treatment/Plan Treatment Plan: Continue Plan of Care Treatment Plan: Bed Mobility, Education, Functional Activity Christine, Functional Strength, Gait, Safety, Therapeutic Exercise, Transfers Treatment Duration: Jul 30, 2016 Visits Per Week: 10-11 Minutes/Day (M-F): 15-30 Minutes/Day (Sat/Perez): 15-30 Time/GCodes Time In: 1107 Time Out: 1130 Total Billed Treatment Time: 23 Total Billed Treatment 1 visit GT 15 min EX 8 min SARA ENGLISH PT Jul 24, 2016 11:40
--- NOTE | 2016-07-24 12:07 | Progress Note-Urology ---
Progress Note-Urology Progress Notes/Assess & Plan Progress/Assessment & Plan TOLERATES DETROL LA WELL, NO EFFECT YET EXPECTED. NO GROSS HEMATURIA. 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
--- NOTE | 2016-07-24 14:58 | Physical Therapy Daily Note ---
PT Daily Note-Current Subjective Patient is very agreeable to participate with PT. Pain Numeric Pain Scale: 0-No Pain Location: No Pain Reported Mental Status Patient Orientation: Normal For Age Attachments: Oxygen Transfers Functional [place] Measure 0=Not Assessed/NA 4=Minimal Assistance 1=Total Assistance 5=Supervision or Setup 2=Maximal Assistance 6=Modified [place] 3=Moderate Assistance 7=Complete IndependenceIRFPAI Quality Coding Scale 6 Independent with activity with or without an assistive device 5 Patient requires set up or clean up by helper. Patient completes activity by themselves 4 Supervision or touching assist (CGA). [place] provide cues , steadying assist 3 The helper provides less than half the effort to complete the activity 2 The helper provides more than half the effort to complete the activity 1 Dependent. The helper does all the effort to complete an activity 7 Patient refused to complete or attempt activity 9 The patient did not perform the activity before the current illness or injury 88 Not attempted due to Medical conditions or safety concerns Transfers (B, C, W/C) (FIM): 5 Scootin Roll Left to Right (QC): 5 Supine to/from Sit: 5 Sit to/from Stand: 5 Sit to Lying (QC): 5 Sit to Stand (QC): 5 Chair/Cdp-ig-Fbhsh Xfer(QC): 5 Bed to/from Chair: 5 Gait Training Does the Patient Walk?: Yes Gait (FIM): 4 Distance (FIM): 3=150 ft Distance: 150' Gait Level of Assist: 4 Gait Assistive Device: FWW safe and functional with FWW Exercises Seated Therapy Exercises: Ankle pumps, Long arc quads, Hip flexion Seated Reps: 25 (x 2 sets) Assessment Patient states she is feeling much better and is improving with energy level. PT Jail Goals Jail Goals PT Quality Control Analyst Goals Time Frame: Jul 30, 2016 Transfers (B,C,W/C) (FIM): 4 Sit to Lying (QC): 4 Lying-Sitting on Side/Bed(QC): 4 Sit to Stand (QC): 4 Rollin Chair/Bth-mv-Pnjin Xfer(QC): 4 Gait (FIM): 5 Distance: 200' Walk 50ft with 2 Turns (QC): 4 Walk 150 ft (QC): 4 Gait Level of Assist: 5 Gait Assistive Device: FWW PT Plan Treatment/Plan Treatment Plan: Continue Plan of Care Treatment Plan: Bed Mobility, Education, Functional Activity Christine, Functional Strength, Gait, Safety, Therapeutic Exercise, Transfers Treatment Duration: Jul 30, 2016 Visits Per Week: 10-11 Minutes/Day (M-F): 15-30 Minutes/Day (Sat/Perez): 15-30 Time/GCodes Time In: 1410 Time Out: 1435 Total Billed Treatment Time: 25 Total Billed Treatment 1 visit GT 15 min EX 10 min SARA ENGLISH PT Jul 24, 2016 14:58
--- NOTE | 2016-07-24 15:14 | Occupational Ther Daily Note ---
OT Current Status-Daily Note Subjective Pt alert, sitting in chair. Visitors present in room. Pt agreed to therapy. No c/o pain at this time. Mental Status/Objective Patient Orientation: Person, Place, Time, Situation Functional [place] Measure 0=Not Assessed/NA 4=Minimal Assistance 1=Total Assistance 5=Supervision or Setup 2=Maximal Assistance 6=Modified [place] 3=Moderate Assistance 7=Complete [place] ADL-Treatment Pt was able to hold onto glass and then scoop out ice cream shake from cup to bring to mouth, 10x's. Pt was able to feel where to sit it back down without spillage. Functional [place] Measure 0=Not Assessed/NA 4=Minimal Assistance 1=Total Assistance 5=Supervision or Setup 2=Maximal Assistance 6=Modified [place] 3=Moderate Assistance 7=Complete IndependenceIRFPAI Quality Coding Scale 6 Independent with activity with or without an assistive device 5 Patient requires set up or clean up by helper. Patient completes activity by themselves 4 Supervision or touching assist (CGA). [place] provide cues , steadying assist 3 The helper provides less than half the effort to complete the activity 2 The helper provides more than half the effort to complete the activity 1 Dependent. The helper does all the effort to complete an activity 7 Patient refused to complete or attempt activity 9 The patient did not perform the activity before the current illness or injury 88 Not attempted due to Medical conditions or safety concerns Other Treatment Pt completed UE exercises against gravity to increase strength, AROM and activity tolerance for daily functional tasks. Pt did have SOA after 10 reps of exercise and needed recovery breaks to catch breath. Pt had O2 on during exercises. OT asked if pt was ready to go back to bed and pt declined wanting to stay up while her visitors were present. After therapy, pt sitting in chair with call light/phone in reach. All needs met in room. OT Short Term Goals Short Term Goals 1=Demonstrate adherence to instructed precautions during ADL tasks. 2=Patient will verbalize/demonstrate understanding of assistive devices/ modifications for ADL. 3=Patient will improve strength/tolerance for activity to enable patient to perform ADL's. OT Weed Cooking Operator Goals Weed Cooking Operator Goals Time Frame: Aug 13, 2016 Eating (FIM): 5 Eating (QC): 5 Oral Hygiene (QC): 5 Grooming(FIM): 5 Toileting Hygiene (QC): 4 Upper Body Dressing(FIM): 5 Lower Body Dressing(FIM): 5 Toilet/Commode Transfer(FIM): 5 Toilet/Commode Transfer (QC): 4 Additional Goals: 1-Demonstrate ADL Tasks, 2-Verbalize Understanding, 3- ImproveStrength/Christine 1=Demonstrate adherence to instructed precautions during ADL tasks. 2=Patient will verbalize/demonstrate understanding of assistive devices/ modifications for ADL. 3=Patient will improve strength/tolerance for activity to enable patient to perform ADL's. OT Education/Plan Problem List/Assessment Pt to benefit from skilled OT intervention for ADL training, transfers, strengthening, and safety education to maximize level of function and allow safe discharge plan. Discharge Recommendations Plan/Recommendations: Continue POC Treatment Plan/Plan of Care Patient would benefit from OT for education, treatment and training to promote independence in ADL's, mobility, safety and/or upper extremity function for ADL' s. Plan of Care: ADL Retraining, Functional Mobility, UE Funct Exercise/Act Treatment Duration: Aug 13, 2016 Visits Per Week: 5 Agreement: Yes Rehab Potential: Fair Time/GCodes Start Time: 14:55 Stop Time: 15:10 Total Time Billed (hr/min): 15 Billed Treatment Time 1 visit-EX 1 (15 min) SKY MARTINEZ Jul 24, 2016 15:14
[2016-07-24] MEDS ORDERED: FUROSEMIDE 40 MG/4 ML INJ (LASIX) IVP NR (17:00)
[2016-07-24 18:13] VITALS: BP 140/65
[2016-07-24] MEDS: ENOXAPARIN 40 MG/0.4 ML (LOVENOX) SYR SC SCH (20:23)
[2016-07-24] MEDS: ESTROGENS CONJ. CREAM 30 GM (PREMARIN) TUBE VG SCH (21:00)
[2016-07-24] MEDS: TOLTERODINE LA 4 MG (DETROL) CAP PO SCH (21:21)
[2016-07-25] MEDS: HYDROcodone/APAP 7.5 MG/325 MG (LORTAB, LORCET PLUS) TABLET PO PRN ×2 (01:00→14:03)
[2016-07-25 06:00] VITALS: BP 128/58
[2016-07-25] MEDS: PHENAZOPYRIDINE 100 MG (PYRIDIUM) TABLET PO SCH ×3 (08:48→18:41)
[2016-07-25] MEDS: FUROSEMIDE 40 MG (LASIX) TAB PO SCH (08:48)
[2016-07-25] MEDS: HYDROcodone/APAP 7.5 MG/325 MG (LORTAB, LORCET PLUS) TABLET PO SCH ×2 (08:49→21:15)
[2016-07-25] MEDS: RT-LEVALBUTEROL (XOPENEX) 1.25 MG/3 ML NEB NON-FORMULARY INH PRN (09:16)
--- NOTE | 2016-07-25 09:29 | Physical Therapy Daily Note ---
PT Daily Note-Current Subjective Patient is agreeable to participate with PT. Family present. Pain Numeric Pain Scale: 0-No Pain Location: No Pain Reported Mental Status Patient Orientation: Normal For Age Attachments: Oxygen Transfers Functional [place] Measure 0=Not Assessed/NA 4=Minimal Assistance 1=Total Assistance 5=Supervision or Setup 2=Maximal Assistance 6=Modified [place] 3=Moderate Assistance 7=Complete IndependenceIRFPAI Quality Coding Scale 6 Independent with activity with or without an assistive device 5 Patient requires set up or clean up by helper. Patient completes activity by themselves 4 Supervision or touching assist (CGA). [place] provide cues , steadying assist 3 The helper provides less than half the effort to complete the activity 2 The helper provides more than half the effort to complete the activity 1 Dependent. The helper does all the effort to complete an activity 7 Patient refused to complete or attempt activity 9 The patient did not perform the activity before the current illness or injury 88 Not attempted due to Medical conditions or safety concerns Transfers (B, C, W/C) (FIM): 5 Scootin Roll Left to Right (QC): 5 Supine to/from Sit: 5 Sit to/from Stand: 5 Sit to Lying (QC): 5 Sit to Stand (QC): 5 Chair/Vep-nn-Fstoa Xfer(QC): 5 Bed to/from Chair: 5 Patient much improved with transfers and bed mobility Gait Training Does the Patient Walk?: Yes Gait (FIM): 5 Distance (FIM): 3=150 ft Distance: 150' Walk 50 ft with 2 Turns(QC): 5 Walk 150 ft (QC): 5 Gait Level of Assist: 5 Gait Assistive Device: FWW safe and functional Exercises Seated Therapy Exercises: Ankle pumps, Long arc quads, Hip flexion Seated Reps: 25 (2 sets) Assessment Patient improving with treatment. Patient is highly motivated with progress. PT Community Relations Police Lieutenant Goals [facility] Goals PT Community Relations Police Lieutenant Goals Time Frame: Jul 30, 2016 Transfers (B,C,W/C) (FIM): 4 Sit to Lying (QC): 4 Lying-Sitting on Side/Bed(QC): 4 Sit to Stand (QC): 4 Rollin Chair/Cek-il-Prvov Xfer(QC): 4 Gait (FIM): 5 Distance: 200' Walk 50ft with 2 Turns (QC): 4 Walk 150 ft (QC): 4 Gait Level of Assist: 5 Gait Assistive Device: FWW PT Plan Treatment/Plan Treatment Plan: Continue Plan of Care Treatment Plan: Bed Mobility, Education, Functional Activity Christine, Functional Strength, Gait, Safety, Therapeutic Exercise, Transfers Treatment Duration: Jul 30, 2016 Visits Per Week: 10-11 Minutes/Day (M-F): 15-30 Minutes/Day (Sat/Perez): 15-30 Time/GCodes Time In: 820 Time Out: 845 Total Billed Treatment Time: 25 Total Billed Treatment 1 visit GT 15 min EX 10 min SARA ENGLISH PT Jul 25, 2016 09:29
--- NOTE | 2016-07-25 11:26 | Progress Note (SOAP) ---
Subjective Subjective/Events-last exam PT STATES THAT SHE IS FEELING BETTER TODAY. SHE REPORTS THAT HER ABDOMINAL DISCOMFORT IS IMPROVED AND HER STRENGTH HAS IMPROVED WELL. Review of Systems General: Fatigue HEENT: No Head Aches Pulmonary: No Dyspnea, No Cough Cardiovascular: No: Chest Pain Gastrointestinal: : Abdominal PainNo: Nausea Neurological: : WeaknessNo: Confusion Objective Exam Vital Signs Date Time Temp Pulse Resp B/P Pulse Ox O2 Delivery O2 Flow Rate FiO2 07/25/16 09:16 95 2.00 07/25/16 06:00 96.8 75 18 128/58 95 Nasal Cannula 2.00 07/24/16 21:00 Nasal Cannula 2.00 07/24/16 19:06 2.00 07/24/16 18:13 98.3 73 20 140/65 93 Nasal Cannula 2.00 I & O 07/25/16 07:00 Intake Total 1862 ml Balance 1862 ml Capillary Refill : General Appearance: No Apparent Distress WD/WN HEENT: PERRL/EOMI Pharynx Normal Neck: Full Range of Motion Supple Respiratory: Chest Non Tender Lungs Clear Normal Breath Sounds No Accessory Muscle Use No Respiratory Distress Cardiovascular: Regular Rate, Rhythm Gastrointestinal: normal bowel sounds non tender Extremity: Normal Capillary Refill Pedal Edema Neurologic/Psychiatric: Alert Oriented x3 No Motor/Sensory Deficits Normal Mood/Affect Skin: Warm/Dry Lymphatic: No Adenopathy Assessment/Plan Assessment/Plan Assess & Plan/Chief Complaint HEMATURIA DIVERTICULITIS INTERSTITIAL CYSTITIS URINARY TRACT INFECTION URINARY RETENTION DYSURIA LEUKOCYTOSIS DEHYDRATION - MILD CHRONIC PAIN SYNDROME HYPERTENSION ANXIETY RESTLESS LEG SYNDROME HEMATURIA WITH URINARY TRACT INFECTION AND URINARY RETENTION AND DYSURIA -UA NEGATIVE - CONTINUE WITH TREATMENT PER DR. WATSON. HE HAS RECOMMENDED OVER THE COUNTER MEDICATION CALLED P LEAF - (PEE RELIEF) FOR INTERSTITIAL CYSTITIS, NO SPICY FOODS, NO OR LOW ACIDIC FOODS DIVERTICULITIS - STOPPED FLAGYL DUE TO SEVERE LEG MOVEMENT DISCOMFORT WITH THE FLAGYL. LEUKOCYTOSIS - IMPROVING - MONITOR DEHYDRATION - MILD - CONTINUE WITH LOWER DOSE OF IV FLUIDS. CHRONIC PAIN SYNDROME - RESTARTED HOME MEDICATIONS HYPERTENSION - RESTARTED TOPROL ANXIETY- RESTARTED ALPRAZOLAM RESTLESS LEG SYNDROME - PT USES ALPRAZOLAM FOR MUSCLE CRAMPS - CONTINUE WITH TREATMENT DISCUSSED WITH HER DAUGHTER - WILL DISCUSS IN PERSON TOMORROW - WILL EVENTUALLY BE SENT HOME WITH HOME HEALTH THERAPY STATES THAT PT IS DOING WELL WITH AMBULATING DOWN HALLWAY Diagnosis/Problems: ERLIN,DONTAE A MD Jul 25, 2016 11:26
--- NOTE | 2016-07-25 13:33 | Occupational Ther Daily Note ---
OT Current Status-Daily Note Subjective Pt in bed with family present. Pt states she just got back into bed, but agrees to treatment. Mental Status/Objective Functional [place] Measure 0=Not Assessed/NA 4=Minimal Assistance 1=Total Assistance 5=Supervision or Setup 2=Maximal Assistance 6=Modified [place] 3=Moderate Assistance 7=Complete [place] Attachments: Oxygen ADL-Treatment Functional [place] Measure 0=Not Assessed/NA 4=Minimal Assistance 1=Total Assistance 5=Supervision or Setup 2=Maximal Assistance 6=Modified [place] 3=Moderate Assistance 7=Complete IndependenceIRFPAI Quality Coding Scale 6 Independent with activity with or without an assistive device 5 Patient requires set up or clean up by helper. Patient completes activity by themselves 4 Supervision or touching assist (CGA). [place] provide cues , steadying assist 3 The helper provides less than half the effort to complete the activity 2 The helper provides more than half the effort to complete the activity 1 Dependent. The helper does all the effort to complete an activity 7 Patient refused to complete or attempt activity 9 The patient did not perform the activity before the current illness or injury 88 Not attempted due to Medical conditions or safety concerns Other Treatment Pt completed bilateral UE exercises to promote increased strength and activity tolerance needed for ADLs and transfers. Pt performed AROM exercises at all joints x10 reps. Brief rest breaks taken between exercises. Pt did not demonstrate any shortness of breath during exercises. Pt positioned in bed with needs met after session, family present. Continue per POC OT Short Term Goals Short Term Goals 1=Demonstrate adherence to instructed precautions during ADL tasks. 2=Patient will verbalize/demonstrate understanding of assistive devices/ modifications for ADL. 3=Patient will improve strength/tolerance for activity to enable patient to perform ADL's. OT Middle School Technology Teacher Goals Middle School Technology Teacher Goals Time Frame: Aug 13, 2016 Eating (FIM): 5 Eating (QC): 5 Oral Hygiene (QC): 5 Grooming(FIM): 5 Toileting Hygiene (QC): 4 Upper Body Dressing(FIM): 5 Lower Body Dressing(FIM): 5 Toilet/Commode Transfer(FIM): 5 Toilet/Commode Transfer (QC): 4 Additional Goals: 1-Demonstrate ADL Tasks, 2-Verbalize Understanding, 3- ImproveStrength/Christine 1=Demonstrate adherence to instructed precautions during ADL tasks. 2=Patient will verbalize/demonstrate understanding of assistive devices/ modifications for ADL. 3=Patient will improve strength/tolerance for activity to enable patient to perform ADL's. OT Education/Plan Problem List/Assessment Pt to benefit from skilled OT intervention for ADL training, transfers, strengthening, and safety education to maximize level of function and allow safe discharge plan. Discharge Recommendations Plan/Recommendations: Continue POC Treatment Plan/Plan of Care Patient would benefit from OT for education, treatment and training to promote independence in ADL's, mobility, safety and/or upper extremity function for ADL' s. Plan of Care: ADL Retraining, Functional Mobility, UE Funct Exercise/Act Treatment Duration: Aug 13, 2016 Visits Per Week: 5 Agreement: Yes Rehab Potential: Fair Time/GCodes Start Time: 13:03 Stop Time: 13:19 Total Time Billed (hr/min): 16 Billed Treatment Time 1 visit, EX(16minutes) NEELAM RAMEY OT Jul 25, 2016 13:33
--- NOTE | 2016-07-25 14:01 | Physical Therapy Daily Note ---
PT Daily Note-Current Subjective Patient has not c/o and agrees to PT. Pain Numeric Pain Scale: 0-No Pain Location: No Pain Reported Mental Status Patient Orientation: Normal For Age Attachments: Oxygen Transfers Functional [place] Measure 0=Not Assessed/NA 4=Minimal Assistance 1=Total Assistance 5=Supervision or Setup 2=Maximal Assistance 6=Modified [place] 3=Moderate Assistance 7=Complete IndependenceIRFPAI Quality Coding Scale 6 Independent with activity with or without an assistive device 5 Patient requires set up or clean up by helper. Patient completes activity by themselves 4 Supervision or touching assist (CGA). [place] provide cues , steadying assist 3 The helper provides less than half the effort to complete the activity 2 The helper provides more than half the effort to complete the activity 1 Dependent. The helper does all the effort to complete an activity 7 Patient refused to complete or attempt activity 9 The patient did not perform the activity before the current illness or injury 88 Not attempted due to Medical conditions or safety concerns Transfers (B, C, W/C) (FIM): 5 Scootin Roll Left to Right (QC): 5 Supine to/from Sit: 5 Sit to/from Stand: 5 Sit to Lying (QC): 5 Sit to Stand (QC): 5 Chair/Mbu-zp-Zhycc Xfer(QC): 5 Bed to/from Chair: 5 Gait Training Does the Patient Walk?: Yes Gait (FIM): 5 Distance (FIM): 3=150 ft Distance: 150' Walk 50 ft with 2 Turns(QC): 5 Walk 150 ft (QC): 5 Gait Level of Assist: 5 Gait Assistive Device: FWW (safe and functional) Exercises Seated Therapy Exercises: Ankle pumps, Long arc quads, Hip flexion Seated Reps: 25 (x 2 sets) Assessment Patient tolerated treatment and is up in recliner with needs met. PT Art Objects Supervisor Goals [facility] Goals PT Art Objects Supervisor Goals Time Frame: Jul 30, 2016 Transfers (B,C,W/C) (FIM): 4 Sit to Lying (QC): 4 Lying-Sitting on Side/Bed(QC): 4 Sit to Stand (QC): 4 Rollin Chair/Ieq-zj-Bfhpc Xfer(QC): 4 Gait (FIM): 5 Distance: 200' Walk 50ft with 2 Turns (QC): 4 Walk 150 ft (QC): 4 Gait Level of Assist: 5 Gait Assistive Device: FWW PT Plan Treatment/Plan Treatment Plan: Continue Plan of Care Treatment Plan: Bed Mobility, Education, Functional Activity Christine, Functional Strength, Gait, Safety, Therapeutic Exercise, Transfers Treatment Duration: Jul 30, 2016 Visits Per Week: 10-11 Minutes/Day (M-F): 15-30 Minutes/Day (Sat/Perez): 15-30 Time/GCodes Time In: 1320 Time Out: 1345 Total Billed Treatment Time: 25 Total Billed Treatment 1 visit GT 15 min EX 10 min SARA ENGLISH PT Jul 25, 2016 14:01
[2016-07-25 17:34] VITALS: BP 143/64
[2016-07-25] MEDS: ENOXAPARIN 40 MG/0.4 ML (LOVENOX) SYR SC SCH (18:41)
[2016-07-25] MEDS: TOLTERODINE LA 4 MG (DETROL) CAP PO SCH (19:54)
[2016-07-25] MEDS: ALPRAZolam 0.25 MG (XANAX) TAB PO PRN (19:54)
[2016-07-25] MEDS: ESTROGENS CONJ. CREAM 30 GM (PREMARIN) TUBE VG SCH (21:00)
[2016-07-26] MEDS: HYDROcodone/APAP 7.5 MG/325 MG (LORTAB, LORCET PLUS) TABLET PO PRN ×2 (00:58→13:24)
[2016-07-26 05:30] VITALS: BP 121/75
--- NOTE | 2016-07-26 08:49 | Physical Therapy Daily Note ---
PT Daily Note-Current Subjective States that she is feeling okay. Pain Numeric Pain Scale: 0-No Pain Transfers Functional Jack Measure 0=Not Assessed/NA 4=Minimal Assistance 1=Total Assistance 5=Supervision or Setup 2=Maximal Assistance 6=Modified Jack 3=Moderate Assistance 7=Complete IndependenceIRFPAI Quality Coding Scale 6 Independent with activity with or without an assistive device 5 Patient requires set up or clean up by helper. Patient completes activity by themselves 4 Supervision or touching assist (CGA). [place] provide cues , steadying assist 3 The helper provides less than half the effort to complete the activity 2 The helper provides more than half the effort to complete the activity 1 Dependent. The helper does all the effort to complete an activity 7 Patient refused to complete or attempt activity 9 The patient did not perform the activity before the current illness or injury 88 Not attempted due to Medical conditions or safety concerns Transfers (B, C, W/C) (FIM): 5 Sit to/from Stand: 5 Gait Training Distance (FIM): 3=150 ft Distance: 150 feet Gait Level of Assist: 5 Gait Persons Needed: 1 Gait Assistive Device: FWW Exercises Seated Therapy Exercises: Ankle pumps, Long arc quads, Hip flexion Seated Reps: 15 Assessment Current Status: Excellent Progress Patient did well with all activities. PT Dairy Worker Goals Dairy Worker Goals PT Dairy Worker Goals Time Frame: Jul 30, 2016 Transfers (B,C,W/C) (FIM): 4 Gait (FIM): 5 Distance: 200' Gait Level of Assist: 5 Gait Assistive Device: FWW PT Plan Treatment/Plan Treatment Plan: Continue Plan of Care Treatment Plan: Bed Mobility, Education, Functional Activity Christine, Functional Strength, Gait, Safety, Therapeutic Exercise, Transfers Treatment Duration: Jul 30, 2016 Visits Per Week: 10-11 Minutes/Day (M-F): 15-30 Minutes/Day (Sat/Perez): 15-30 Time/GCodes Time In: 0830 Time Out: 0850 Total Billed Treatment Time: 20 Total Billed Treatment 1, GT x 15 SCOTT DENT PT Jul 26, 2016 08:49
[2016-07-26] MEDS: PHENAZOPYRIDINE 100 MG (PYRIDIUM) TABLET PO SCH ×3 (09:04→18:39)
[2016-07-26] MEDS: FUROSEMIDE 40 MG (LASIX) TAB PO SCH (09:04)
[2016-07-26] MEDS: HYDROcodone/APAP 7.5 MG/325 MG (LORTAB, LORCET PLUS) TABLET PO SCH ×2 (09:04→20:57)
--- NOTE | 2016-07-26 13:07 | Progress Note (SOAP) ---
Subjective Subjective/Events-last exam PT REPORTS THAT SHE WAS SITTING THE CHAIR FROM 6 AM TO 11AM, WALKED WITH STAFF TODAY - AND THERAPY WELL. PT'S DAUGHTER THINKS THAT HER MOM IS SIGNIFICANTLY BETTER AND WOULD LIKE TO GET A FEW MORE THINGS IN PLACE TO BE ABLE TO TAKE HER HOME TOMORROW. Review of Systems General: Fatigue HEENT: No Head Aches Pulmonary: No Dyspnea, No Cough Cardiovascular: No: Chest Pain Gastrointestinal: : Abdominal Pain (INTERMITTENT)No: Nausea Neurological: : Confusion: Weakness Objective Exam Vital Signs Date Time Temp Pulse Resp B/P Pulse Ox O2 Delivery O2 Flow Rate FiO2 07/26/16 07:04 94 2.00 07/26/16 05:30 96.6 79 20 121/75 94 Nasal Cannula 2.00 07/25/16 21:00 Nasal Cannula 2.00 07/25/16 19:04 94 2.00 07/25/16 17:34 99.2 77 20 143/64 91 Nasal Cannula 2.00 I & O 07/26/16 06:59 Intake Total 1584 ml Balance 1584 ml Capillary Refill : General Appearance: No Apparent Distress WD/WN HEENT: PERRL/EOMI Pharynx Normal Neck: Full Range of Motion Supple Respiratory: Chest Non Tender Lungs Clear Cardiovascular: Regular Rate, Rhythm Gastrointestinal: normal bowel sounds non tender soft no organomegaly no pulsatile mass Extremity: No Pedal Edema Neurologic/Psychiatric: Alert Oriented x3 No Motor/Sensory Deficits Skin: Warm/Dry Lymphatic: No Adenopathy Assessment/Plan Assessment/Plan Assess & Plan/Chief Complaint HEMATURIA DIVERTICULITIS INTERSTITIAL CYSTITIS URINARY TRACT INFECTION URINARY RETENTION DYSURIA LEUKOCYTOSIS DEHYDRATION - MILD CHRONIC PAIN SYNDROME HYPERTENSION ANXIETY RESTLESS LEG SYNDROME HEMATURIA WITH URINARY TRACT INFECTION AND URINARY RETENTION AND DYSURIA -UA NEGATIVE - CONTINUE WITH TREATMENT PER DR. WATSON. HE HAS RECOMMENDED OVER THE COUNTER MEDICATION CALLED P LEAF - (PEE RELIEF) FOR INTERSTITIAL CYSTITIS, NO SPICY FOODS, NO OR LOW ACIDIC FOODS DIVERTICULITIS - STOPPED FLAGYL DUE TO SEVERE LEG MOVEMENT DISCOMFORT WITH THE FLAGYL. LEUKOCYTOSIS - IMPROVING - MONITOR DEHYDRATION - MILD - CONTINUE WITH LOWER DOSE OF IV FLUIDS. CHRONIC PAIN SYNDROME - RESTARTED HOME MEDICATIONS HYPERTENSION - RESTARTED TOPROL ANXIETY- RESTARTED ALPRAZOLAM RESTLESS LEG SYNDROME - PT USES ALPRAZOLAM FOR MUSCLE CRAMPS - CONTINUE WITH TREATMENT DISCUSSED WITH HER DAUGHTER - MACIEJ - PLAN IS FOR PATIENT TO BE SENT HOME WITH HOME HEALTH TOMORROW. Diagnosis/Problems: DONTAE KERN MD Jul 26, 2016 13:07
[2016-07-26 18:00] VITALS: BP 140/71
[2016-07-26] MEDS: ENOXAPARIN 40 MG/0.4 ML (LOVENOX) SYR SC SCH (18:39)
[2016-07-26] MEDS: ALPRAZolam 0.25 MG (XANAX) TAB PO PRN (20:19)
[2016-07-26] MEDS: TOLTERODINE LA 4 MG (DETROL) CAP PO SCH (20:19)
[2016-07-26] MEDS: ESTROGENS CONJ. CREAM 30 GM (PREMARIN) TUBE VG SCH (20:20)
[2016-07-27] MEDS: HYDROcodone/APAP 7.5 MG/325 MG (LORTAB, LORCET PLUS) TABLET PO PRN (00:39)
[2016-07-27 06:00] VITALS: BP 114/52
[2016-07-27] MEDS: FUROSEMIDE 40 MG (LASIX) TAB PO SCH (08:32)
[2016-07-27] MEDS: HYDROcodone/APAP 7.5 MG/325 MG (LORTAB, LORCET PLUS) TABLET PO SCH (08:32)
[2016-07-27] MEDS: PHENAZOPYRIDINE 100 MG (PYRIDIUM) TABLET PO SCH (08:32)
[2016-07-27] MEDS: RT-LEVALBUTEROL (XOPENEX) 1.25 MG/3 ML NEB NON-FORMULARY INH PRN (08:47)
[2016-07-27] MEDS ORDERED: EST30C VG ×2 (09:17→09:19)
[2016-07-27] MEDS ORDERED: PRELIEF PO (09:17)
[2016-07-27] MEDS ORDERED: TOLTA4 PO (09:17)
--- NOTE | 2016-07-27 09:23 | Discharge Inst-Complex ---
PDI Med Rec & Follow Up Appt. New Medications: ([Prelief]) 2 TAB PO AC THIS IS AN OVER THE COUNTER MEDICATION - DR. WATSON WANTS PT TO TAKE WITH MEALS FOR CONTROL OF INTERSTITIAL CYSTITIS SYMPTOMS #180 Ref 6 Estrogens Conjugated (Premarin) 30 Gm Cr 0 GM VG UD USE ONE APPLICATION PER VAGINA DAILY X 1 WEEK THEN TWICE WEEKLY THEREAFTER #1 TUBE Tolterodine Tartrate (Detrol LA) 4 Mg Cap 4 MG PO HS #30 Ref 6 CAP Continued Medications: Alprazolam (Alprazolam) 0.25 Mg Tablet 0.25 MG PO HS TAB Cholecalciferol (Vitamin D) 2,000 Unit Capsule 2000 UNIT PO DAILY CAP Cyanocobalamin (Vitamin B-12) (Liquid B-12) 1,000 Mcg/15 Ml Liquid 1 ML PO DAILY EA Ferrous Sulfate (Ferrous Sulfate) 325 Mg Tablet 325 MG PO DAILY TAB Furosemide (Furosemide) 40 Mg Tablet 40 MG PO DAILY TAB Hydrocodone/Acetaminophen (Hydrocodon-Acetaminoph 7.5-325) 1 Each Tablet 1 TAB PO Q6H PRN PAIN TAB Inulin/Sorbitol (Fiber Choice Chewable Tablet) 2 Gm Tab.chew 2 GM PO DAILY Loperamide Hcl (Loperamide Hcl) 2 Mg Capsule 2 MG PO DAILY PRN DIARRHEA TAB Multivitamin (Chewable-Eddi) 1 Each Tab.chew 1 TAB.CHEW PO DAILY TAB Potassium Chloride (Potassium Chloride) 20 Meq Tab.prt.sr 20 MEQ PO DAILY TAB Rosuvastatin Calcium (Crestor) 10 Mg Tablet 10 MG PO 1800 TAB Discontinued Medications: Cephalexin (Cephalexin) 500 Mg Capsule 500 MG PO BID FILLED #60 07-14-16 CAP Prescription: Transmitted to Pharmacy Activity, Diet and PDI Resume Normal Activity: Yes Discharge Diet: Other Diet (RESUME PREVIOUS HOME DIET WITH LOW RESIDUE DIET, NO NUTS, SEEDS, FRUITS WITH SEEDS, CORN, PEAS) Diet After 24 Hours: Clear Liquid if Nauseous Drink 6-8 Glasses of Fluid/Day: Yes Return to The Hospital For: ANY CONCERN FOR WORSENING SYMPTOMS, CHEST PAIN, OR LIFETHREATENING ILLNESS Symptoms to Reoprt to DrAlma: Appetite Changes, Fever Over 101 Degrees F, Pain/ Pressure in Chest, Urination Difficulty, Diarrhea(Persistant) For Problems or Questions: Contact Your Physician, Go to Emergency Room DONTAE KERN MD Jul 27, 2016 09:23
--- NOTE | 2016-07-27 09:25 | Discharge Summary ---
Diagnosis/Chief Complaint Date of Admission Jul 23, 2016 at 09:34 Date of Discharge Discharge Date: Jul 27, 2016 Discharge Time: 1030 Discharge Diagnosis DUPLICATE - SEE OTHER DC SUMMARY Discharge Summary Discharge Physical Examination Allergies: Coded Allergies: Sulfa (Sulfonamide Antibiotics) (Verified Allergy, Mild, 03/09/12) codeine (Verified Allergy, Mild, HAS TAKEN LORTAB IN THE PAST, 07/17/16) meclizine (Verified Allergy, Mild, 03/09/12) Penicillins (Unverified Allergy, Unknown, Has received Ancef in the past, 07/17/16) Vitals & I&Os Vital Signs Date Time Temp Pulse Resp B/P Pulse Ox O2 Delivery O2 Flow Rate FiO2 07/27/16 08:48 93 2.00 07/27/16 06:00 97.1 73 20 114/52 Nasal Cannula Hospital Course DUPLICATE - SEE OTHER DC SUMMARY Discharge Instructions to patient/family Please see electonic discharge instructions given to patient. Discharge Medications Reviewed and agree with Discharge Medication list on patient's Discharge Instruction sheet DONTAE KERN MD Jul 27, 2016 09:25
[2016-07-27] MEDS ORDERED: LEVA1.2516 INH (09:54)
[2016-07-27 11:15] VITALS: BP 114/52
--- NOTE | 2016-07-27 12:12 | Discharge Summary ---
Diagnosis/Chief Complaint Date of Admission Jul 23, 2016 at 09:34 Date of Discharge Discharge Date: Jul 27, 2016 Discharge Time: 1030 Admission Diagnosis Admission Diagnosis HEMATURIA DIVERTICULITIS INTERSTITIAL CYSTITIS URINARY TRACT INFECTION URINARY RETENTION DYSURIA LEUKOCYTOSIS DEHYDRATION - MILD CHRONIC PAIN SYNDROME HYPERTENSION ANXIETY RESTLESS LEG SYNDROME Discharge Diagnosis HEMATURIA DIVERTICULITIS INTERSTITIAL CYSTITIS URINARY TRACT INFECTION URINARY RETENTION DYSURIA LEUKOCYTOSIS DEHYDRATION - MILD CHRONIC PAIN SYNDROME HYPERTENSION ANXIETY RESTLESS LEG SYNDROME Reason Hospital Visit PT IS AN 85 Y/O FEMALE WHO IS KNOWN TO ME FROM CLINIC. SHE PRESENTED TO THE OFFICE WITH ABDOMINAL PAIN, HEMATURIA, AND WAS ADMITTED TO THE HOSPITAL FOR FURTHER WORK UP. SHE WAS HAVING PERSISTENT ABDOMINAL PAIN, BLADDER SPASMS - DR. WATSON WAS CONSULTED AND TOOK PT FOR SCOPE - SHOWED INTERSTITIAL CYSTITIS. CT OF ABDOMEN SHOWED DIVERTICULITIS Discharge Summary Consultations APOLLO WATSON MD Discharge Physical Examination Allergies: Coded Allergies: Sulfa (Sulfonamide Antibiotics) (Verified Allergy, Mild, 03/09/12) codeine (Verified Allergy, Mild, HAS TAKEN LORTAB IN THE PAST, 07/17/16) meclizine (Verified Allergy, Mild, 03/09/12) Penicillins (Unverified Allergy, Unknown, Has received Ancef in the past, 07/17/16) Vitals & I&Os Vital Signs Date Time Temp Pulse Resp B/P Pulse Ox O2 Delivery O2 Flow Rate FiO2 07/27/16 08:48 93 2.00 07/27/16 06:00 97.1 73 20 114/52 Nasal Cannula General Appearance: Alert, Oriented X3, Cooperative, No Acute Distress HEENT: Atraumatic Respiratory: Clear to Auscultation Cardiovascular: Regular Rate Abdominal: Normal Bowel Sounds, Soft, No Tenderness Extremities: No Clubbing, No Cyanosis, No Edema Skin: No Rashes Neuro: Cranial Nerves 3-12 NL Psych/Mental Status: Mental Status NL, Mood NL Hospital Course HEMATURIA DIVERTICULITIS INTERSTITIAL CYSTITIS URINARY TRACT INFECTION URINARY RETENTION DYSURIA LEUKOCYTOSIS DEHYDRATION - MILD CHRONIC PAIN SYNDROME HYPERTENSION ANXIETY RESTLESS LEG SYNDROME HEMATURIA WITH URINARY TRACT INFECTION AND URINARY RETENTION AND DYSURIA -UA NEGATIVE - CONTINUE WITH TREATMENT PER DR. WATSON. HE HAS RECOMMENDED OVER THE COUNTER MEDICATION CALLED P LEAF - (PEE RELIEF) FOR INTERSTITIAL CYSTITIS, NO SPICY FOODS, NO OR LOW ACIDIC FOODS DIVERTICULITIS - STOPPED FLAGYL DUE TO SEVERE LEG MOVEMENT DISCOMFORT WITH THE FLAGYL. LEUKOCYTOSIS - IMPROVING - MONITOR DEHYDRATION - MILD - IV FLUIDS STOPPED CHRONIC PAIN SYNDROME - RESTARTED HOME MEDICATIONS HYPERTENSION - RESTARTED TOPROL ANXIETY- RESTARTED ALPRAZOLAM RESTLESS LEG SYNDROME - PT USES ALPRAZOLAM FOR MUSCLE CRAMPS - CONTINUE WITH TREATMENT DISCUSSED WITH HER DAUGHTER - MACIEJ - PLAN IS FOR PATIENT TO BE SENT HOME WITH HOME HEALTH TODAY Discharge Condition at discharge IMPROVED Instructions to patient/family Please see electonic discharge instructions given to patient. Discharge Medications Reviewed and agree with Discharge Medication list on patient's Discharge Instruction sheet DONTAE KERN MD Jul 27, 2016 12:12
--- NOTE | 2016-07-28 08:57 | Therapy Team Discharge Summary ---
Therapy Discharge Summary Discharge Recommendations Date of Discharge Jul 27, 2016 at 11:15 Therapy D/C Recommendations: Home w/ Family Support Occupational Therapy Pt admitted to [facility] status following acute hospitalization for UTI. On admission to required minimal assistance for transfer to chair and assist for LE dressing. Skilled treatment focused on ADLs, transfers, and strengthening. Pt progressed with therapy, but did not meet OT LTG. Pt discharged home with home health. D/c SWB OT at this time. PT Mate Fishing Vessel Goals Alf Goals PT Alf Goals Time Frame: Jul 30, 2016 Transfers (B,C,W/C) (FIM): 4 Sit to Lying (QC): 4 Lying-Sitting on Side/Bed(QC): 4 Sit to Stand (QC): 4 Rollin Chair/Ezp-nc-Fkcjb Xfer(QC): 4 Gait (FIM): 5 Distance: 200' Walk 50ft with 2 Turns (QC): 4 Walk 150 ft (QC): 4 Gait Level of Assist: 5 Gait Assistive Device: FWW OT Alf Goals Alf Goals Time Frame: Aug 13, 2016 Eating (FIM): 5 Eating (QC): 5 Oral Hygiene (QC): 5 Grooming(FIM): 5 Toileting Hygiene (QC): 4 Upper Body Dressing(FIM): 5 Lower Body Dressing(FIM): 5 Toilet/Commode Transfer(FIM): 5 Toilet/Commode Transfer (QC): 4 Additional Goals: 1-Demonstrate ADL Tasks, 2-Verbalize Understanding, 3- ImproveStrength/Christine 1=Demonstrate adherence to instructed precautions during ADL tasks. 2=Patient will verbalize/demonstrate understanding of assistive devices/ modifications for ADL. 3=Patient will improve strength/tolerance for activity to enable patient to perform ADL's. NEELAM RAMEY OT Jul 28, 2016 08:57
--- NOTE | 2016-07-28 11:18 | Therapy Team Discharge Summary ---
Therapy Discharge Summary Discharge Recommendations Date of Discharge Jul 27, 2016 at 11:15 Therapy D/C Recommendations: Home w/ Family Support Physical Therapy Patient was admitted to hospital with UTI. Patient dismissed to home with family support at a SBA to modified independent LOF with gross motor skills. Patient presented with weakness and debility with mod assist LOF and improved with exercise and ambulation to return to home with family/friend support and home health intervention. Gait goal not attained with distance goal. PT Fpc Goals Chief Yeoman Goals PT Chief Yeoman Goals Time Frame: Jul 30, 2016 Transfers (B,C,W/C) (FIM): 4 Sit to Lying (QC): 4 Lying-Sitting on Side/Bed(QC): 4 Sit to Stand (QC): 4 Rollin Chair/Sst-fo-Jquhs Xfer(QC): 4 Gait (FIM): 5 Distance: 200' Walk 50ft with 2 Turns (QC): 4 Walk 150 ft (QC): 4 Gait Level of Assist: 5 Gait Assistive Device: FWW OT Chief Yeoman Goals Chief Yeoman Goals Time Frame: Aug 13, 2016 Eating (FIM): 5 Eating (QC): 5 Oral Hygiene (QC): 5 Grooming(FIM): 5 Toileting Hygiene (QC): 4 Upper Body Dressing(FIM): 5 Lower Body Dressing(FIM): 5 Toilet/Commode Transfer(FIM): 5 Toilet/Commode Transfer (QC): 4 Additional Goals: 1-Demonstrate ADL Tasks, 2-Verbalize Understanding, 3- ImproveStrength/Christine 1=Demonstrate adherence to instructed precautions during ADL tasks. 2=Patient will verbalize/demonstrate understanding of assistive devices/ modifications for ADL. 3=Patient will improve strength/tolerance for activity to enable patient to perform ADL's. SARA ENGLISH PT Jul 28, 2016 11:18
== END 2016-07-27 11:15 | disposition home health service (06) | DRG 690 ==
LOC: 4TH 09:34
PROVIDERS: ADMIT Family Medicine; ATTEND Family Medicine
DX: N30.11 Interstitial cystitis (chronic) with hematuria (principal); N36.42 Intrinsic sphincter deficiency (ISD); N32.81 Overactive bladder; R33.9 Retention of urine, unspecified; R32 Unspecified urinary incontinence; N32.89 Other specified disorders of bladder; K57.32 Diverticulitis of large intestine without perforation or abscess without bleeding; E86.0 Dehydration; K52.9 Noninfective gastroenteritis and colitis, unspecified; I10 Essential (primary) hypertension; G89.4 Chronic pain syndrome; G25.81 Restless legs syndrome; F41.9 Anxiety disorder, unspecified; H35.30 Unspecified macular degeneration; Z95.1 Presence of aortocoronary bypass graft
CPT/HCPCS: 36415; 80053; 85027; 94640; 94664; 94760

== ENCOUNTER 2016-11-26 14:08 | Inpatient (IN) | payer MEDICARE ==
[~2016-11-26] VITALS: Ht 160 cm; Wt 68.2 kg
[2016-11-26 13:00] VITALS: BP 147/75
[~2016-11-26 14:08] MED LIST changes: +EST30C VG; +LEVA1.2516 INH; +PRELIEF PO; +TOLTA4 PO
[2016-11-26] MEDS ORDERED: ONDANSETRON 4 MG/2 ML (SDV) Z0FRAN IVP PRN (14:30)
[2016-11-26] MEDS ORDERED: D5 1/2 NS 1000 ML IV SOLUTION 1,000 ML IV SCH (14:30)
[2016-11-26] MEDS ORDERED: PROMETHAZINE INJ 25 MG/ML (PHENERGAN) AMP IVP PRN (14:30)
[2016-11-26] MEDS ORDERED: diphenhydrAMINE 50 MG/ML INJ (BENADRYL) IV PRN (14:30)
[2016-11-26] MEDS ORDERED: CLINDAMYCIN INJECTION 600 MG in NS (IVPB) 50 ML IV NR (14:30)
[2016-11-26] MEDS ORDERED: fentaNYL INJECTION 100 MCG/2 ML AMP ONE ×2 (14:43→16:04)
[2016-11-26 14:53] LABS: BASOPHILS % (AUTO) 0 % (0-10); EOSINOPHILS % (AUTO) 0 % (0-10); LYMPHOCYTES # (AUTO) 0.7 X 10^3 (1.0-4.0); LYMPHOCYTES % (AUTO) 7 % (12-44); MEAN CORPUSCULAR HEMOGLOBIN 29 PG (25-34); MEAN CORPUSCULAR HGB CONC 30 G/DL (32-36); MEAN CORPUSCULAR VOLUME 98 FL (80-99); MEAN PLATELET VOLUME 10.4 FL (7.4-10.4); MONOCYTES # (AUTO) 1.2 X 10^3 (0.0-1.0); MONOCYTES % (AUTO) 12 % (0-12); NEUTROPHILS # (AUTO) 8.2 X 10^3 (1.8-7.8); NEUTROPHILS % (AUTO) 80 % (42-75); PLATELET COUNT 177 10^3/uL (130-400); RED BLOOD COUNT 3.14 10^6/uL (4.35-5.85); WHITE BLOOD COUNT 10.2 10^3/uL (4.3-11.0)
[2016-11-26] MEDS: D5 1/2 NS 1000 ML IV SOLUTION 1,000 ML IV SCH (14:54)
[2016-11-26 15:05] LABS: INR 1.1 (0.8-1.4); PROTHROMBIN TIME PATIENT 13.4 SEC (12.2-14.7)
[2016-11-26 15:08] LABS: BAND NEUTROPHILS 7 %; BASOPHILS % (MANUAL) 0 %; EOSINOPHILS % (MANUAL) 0 %; LYMPHOCYTES % (MANUAL) 14 %; NEUTROPHILS % (MANUAL) 63 %
[2016-11-26 15:12] LABS: ALBUMIN 3.9 G/DL (3.2-4.5); BILIRUBIN,TOTAL 0.5 MG/DL (0.1-1.0); CALCIUM 9.5 MG/DL (8.5-10.1); CREATININE SERUM 1.15 MG/DL (0.60-1.30); TOTAL PROTEIN 7.7 G/DL (6.4-8.2)
[2016-11-26 15:19] LABS: BILIRUBIN,URINE NEGATIVE (NEGATIVE); KETONES,URINE NEGATIVE (NEGATIVE); LEUKOCYTE ESTERASE ,URINE 3+ (NEGATIVE); NITRITE,URINE NEGATIVE (NEGATIVE); PH,URINE 7 (5-9); PROTEIN,URINE 3+ (NEGATIVE); UROBILINOGEN,URINE NORMAL (NORMAL)
[2016-11-26 15:26] LABS: WBC,URINE 50-100 /HPF
[2016-11-26] MEDS ORDERED: NEO/POLY/BAC (NEOSPORIN) OINT 15 GM TUBE ONE (15:33)
[2016-11-26] MEDS ORDERED: GENTAMICIN 40 MG/ML 2 ML INJ SDV ONE (15:33)
[2016-11-26] MEDS: KETOROLAC 15 MG/ML VIAL IVP PRN (15:40)
[2016-11-26] MEDS ORDERED: morphine INJ 10 MG/ML 1ML (SYR OR VIAL) ONE (15:53)
[2016-11-26] MEDS ORDERED: MEPERIDINE (DEMEROL) INJ 50 MG/ML ONE (15:54)
[2016-11-26] MEDS ORDERED: LIDOCAINE PF 2% 5 ML (XYLOCAINE) VIAL ONE (16:03)
[2016-11-26] MEDS ORDERED: SEVOFLURANE (ULTANE) 15 ML INHAL SOLN ONE ×2 (16:03→18:04)
[2016-11-26] MEDS ORDERED: DEXAMETHASONE PF 10 MG/ML (DECADRON) VIAL ONE (16:03)
[2016-11-26] MEDS ORDERED: ONDANSETRON 4 MG/2 ML (SDV) Z0FRAN ONE (16:03)
[2016-11-26] MEDS ORDERED: proPOfol 200 MG/20 ML (DIPRIVAN) VIAL IV ONE (16:03)
[2016-11-26] MEDS ORDERED: LACTATED RINGERS 1,000 ML IV ONE ×2 (16:03→18:12)
--- NOTE | 2016-11-26 16:09 | History & Physical-Surgical ---
HPO-Surgical History of Present Illness Chief Complaint: left hip pain, fall on 11/25/16 2330 Diagnosis/Surgical Indication: displaced traumatic left femoral neck fracture Procedure: left hip prosthesis Date of Surgery: Nov 26, 2016 Weight (Pounds): 150 Weight (Ounces): 5.0 Height (Feet): 5 Height (Inches): 3.00 Allergies and Home Medications Allergies Coded Allergies: Sulfa (Sulfonamide Antibiotics) (Verified Allergy, Mild, 03/09/12) codeine (Verified Allergy, Mild, HAS TAKEN LORTAB IN THE PAST, 07/17/16) meclizine (Verified Allergy, Mild, 03/09/12) Penicillins (Unverified Allergy, Unknown, Has received Ancef in the past, 07/17/16) Home Medications Alprazolam 0.25 Mg Tablet, 0.25 MG PO HS, (Reported) Cholecalciferol 2,000 Unit Capsule, 2,000 UNIT PO DAILY, (Reported) Cyanocobalamin (Vitamin B-12) 1,000 Mcg/15 Ml Liquid, 1 ML PO DAILY, (Reported) Estrogens Conjugated 30 Gm Cr, 0 GM VG UD, #1 USE ONE APPLICATION PER VAGINA DAILY X 1 WEEK THEN TWICE WEEKLY THEREAFTER Prescribed by: DONTAE AGGARWAL on 07/27/16 0919 Ferrous Sulfate 325 Mg Tablet, 325 MG PO DAILY, (Reported) Furosemide 40 Mg Tablet, 40 MG PO DAILY, (Reported) Hydrocodone/Acetaminophen 1 Each Tablet, 1 TAB PO Q6H PRN for PAIN, (Reported) Inulin/Sorbitol 2 Gm Tab.chew, 2 GM PO DAILY, (Reported) Levalbuterol HCl 1.25 Mg/3 Ml Vial.neb, 1.25 MG INH Q6HR PRN for SHORTNESS OF BREATH, #30 Prescribed by: DONTAE AGGARWAL on 07/27/16 0954 Loperamide Hcl 2 Mg Capsule, 2 MG PO DAILY PRN for DIARRHEA, (Reported) Multivitamin 1 Each Tab.chew, 1 TAB.CHEW PO DAILY, (Reported) Potassium Chloride 20 Meq Tab.prt.sr, 20 MEQ PO DAILY, (Reported) Rosuvastatin Calcium 10 Mg Tablet, 10 MG PO 1800, (Reported) Tolterodine Tartrate 4 Mg Cap, 4 MG PO HS, #30 Ref 6 Prescribed by: DONTAE AGGARWAL on 07/27/16916 [Prelief] , 2 TAB PO AC, #180 Ref 6 THIS IS AN OVER THE COUNTER MEDICATION - DR. WATSON WANTS PT TO TAKE WITH MEALS FOR CONTROL OF INTERSTITIAL CYSTITIS SYMPTOMS Prescribed by: DONTAE AGGARWAL on 07/27/16916 Past Pyrosrp-Fwppje-Vipoog Hx Patient Social History Alcohol Use: Denies Use Recreational Drug Use: No Smoking Status: Never a Smoker 2nd Hand Smoke Exposure: No Physical Abuse Screen: No Sexual Abuse: No Recent Foreign Travel: No Contact w/other who traveled: No Recent Hopitalizations: No Recent Infectious Disease Expo: No Immunizations Up To Date Date of Pneumonia Vaccine: Mar 22, 2014 Date of Influenza Vaccine: Apr 22, 2016 Seasonal Allergies Seasonal Allergies: No Surgeries HX Surgeries: Yes (APPY, OSMAR, BLADDER REPAIR X2, INGUINAL HERNIA REPAIR X2, TOTAL KNEE REPLA) Surgeries: Appendectomy, Bladder Surgery, Gallbladder, Open Heart Surgery, Orthopedic Respiratory Hx Respiratory Disorders: No Cardiovascular Hx Cardiovascular Disorders: Yes (CABG X6) Neurological Hx Neurological Disorders: No Reproductive System Hx Reproductive Disorders: Yes Genitourinary Hx Genitourinary Disorders: Yes Genitourinary Disorders: UTI-Chronic Gastrointestinal Hx Gastrointestinal Disorders: Yes (irr bowel, diverticulitis) Gastrointestinal Disorders: Diverticulosis, Irritable Bowel Musculoskeletal Hx Musculoskeletal Disorders: No (USE CANE) Endocrine Hx Endocrine Disorders: No HEENT HX ENT Disorders: No (PARTIALS) HEENT Disorders: Macular Degeneration Loss of Vision: Bilateral Cancer Hx Cancer: No Psychosocial Hx Psychiatric Problems: No Blood Transfusions Hx Blood Disorders: No Adverse Reaction to a Blood Tr: No Family Medical History Significant Family History: Heart Disease, Hypertension Family Hx: CAD 19 MOTHER Glaucoma 19 MOTHER Hypertension 19 MOTHER Exam Vital Signs Vital Signs 11/26/16 11/26/16 13:00 15:55 Temp 98.8 Pulse 89 Resp 20 B/P (MAP) 147/75 Pulse Ox 93 O2 Flow Rate 2.00 Capillary Refill : Less Than 3 Seconds Labs Laboratory Tests Test 11/26/16 14:46 11/26/16 15:10 Range/Units White Blood Count 10.2 4.3-11.0 10^3/uL Red Blood Count 3.14 L 4.35-5.85 10^6/uL Hemoglobin 9.2 L 11.5-16.0 G/DL Hematocrit 31 L 35-52 % Mean Corpuscular Volume 98 80-99 FL Mean Corpuscular Hemoglobin 29 25-34 PG Mean Corpuscular Hemoglobin Concent 30 L 32-36 G/DL Red Cell Distribution Width 14.0 10.0-14.5 % Platelet Count 177 130-400 10^3/uL Mean Platelet Volume 10.4 7.4-10.4 FL Neutrophils (%) (Auto) 80 H 42-75 % Lymphocytes (%) (Auto) 7 L 12-44 % Monocytes (%) (Auto) 12 0-12 % Eosinophils (%) (Auto) 0 0-10 % Basophils (%) (Auto) 0 0-10 % Neutrophils # (Auto) 8.2 H 1.8-7.8 X 10^3 Lymphocytes # (Auto) 0.7 L 1.0-4.0 X 10^3 Monocytes # (Auto) 1.2 H 0.0-1.0 X 10^3 Eosinophils # (Auto) 0.0 0.0-0.3 10^3/uL Basophils # (Auto) 0.0 0.0-0.1 10^3/uL Neutrophils % (Manual) 63 % Lymphocytes % (Manual) 14 % Monocytes % (Manual) 16 % Eosinophils % (Manual) 0 % Basophils % (Manual) 0 % Band Neutrophils 7 % Blood Morphology Comment NORMAL Prothrombin Time 13.4 12.2-14.7 SEC INR Comment 1.1 0.8-1.4 Sodium Level 139 135-145 MMOL/L Potassium Level 5.0 3.6-5.0 MMOL/L Chloride Level 102 98-107 MMOL/L Carbon Dioxide Level 26 21-32 MMOL/L Anion Gap 11 5-14 MMOL/L Blood Urea Nitrogen 27 H 7-18 MG/DL Creatinine 1.15 0.60-1.30 MG/DL Estimat Glomerular Filtration Rate 45 BUN/Creatinine Ratio 23 Glucose Level 103 70-105 MG/DL Calcium Level 9.5 8.5-10.1 MG/DL Total Bilirubin 0.5 0.1-1.0 MG/DL Aspartate Amino Transf (AST/SGOT) 15 5-34 U/L Alanine Aminotransferase (ALT/SGPT) 12 0-55 U/L Alkaline Phosphatase 54 40-136 U/L Total Protein 7.7 6.4-8.2 G/DL Albumin 3.9 3.2-4.5 G/DL Urine Color YELLOW Urine Clarity CLEAR Urine pH 7 5-9 Urine Specific [place] 1.010 L 1.016-1.022 Urine Protein 3+ H NEGATIVE Urine Glucose (UA) NEGATIVE NEGATIVE Urine Ketones NEGATIVE NEGATIVE Urine Nitrite NEGATIVE NEGATIVE Urine Bilirubin NEGATIVE NEGATIVE Urine Urobilinogen NORMAL NORMAL MG/DL Urine Leukocyte Esterase 3+ H NEGATIVE Urine RBC (Auto) 5+ H NEGATIVE Urine RBC 25-50 H /HPF Urine WBC 50-100 H /HPF Urine Crystals NONE /LPF Urine Bacteria LARGE H /HPF Urine Casts NONE /LPF Urine Mucus NEGATIVE /LPF Urine Culture Indicated YES General Appearance: Oriented X3 HEENT: PERRLA Respiratory: Clear to Auscultation Cardiovascular: Regular Rate Abdominal: Normal Bowel Sounds, Soft Extremities: No Clubbing, No Cyanosis, Normal Pulses, Other (shortenening and ER of left leg, tenderness over left hip and left wrist, swelling to left wrist , cockup wrist splint in place) Skin: No Breakdown Neuro: Normal Speech, Strength at 5/5 X4 Ext Psych/Mental Status: Mental Status NL Assessment/Plan Assessment and Plan A: acute traumatic displaced left femoral neck fracture, acute traumatic mildly angulated nondisplaced metaphyseal left wrist fracture, recurrent UTI, fall, hx of atrial fibrillation, chronic iron deficiency anemia P: left hip prosthesis, consult Dr. Aggarwal for management of internal medicine , outreach and education social worker consult for DC planning, may need blood products after surgery Problems: FREDERICK PRESLEY APRN Nov 26, 2016 4:09 pm
[2016-11-26] MEDS ORDERED: TRIM100T PO (16:20)
[2016-11-26] MEDS ORDERED: ROSU10TA24 PO (16:20)
[2016-11-26] MEDS ORDERED: EST30C VG (16:20)
[2016-11-26] MEDS ORDERED: TOLT4CAP13 PO (16:20)
[2016-11-26] MEDS ORDERED: PRELIEF PO (16:20)
[2016-11-26] MEDS ORDERED: L.AC1CAP6 PO (16:20)
[2016-11-26] MEDS ORDERED: MAGN400T6 PO (16:20)
[2016-11-26] MEDS ORDERED: POTA20TA8 PO (16:20)
[2016-11-26] MEDS ORDERED: FURO40TA4 PO (16:20)
--- NOTE | 2016-11-26 16:22 | Progress Note-Pre Operative ---
Pre-Operative Progress Note H&P Reviewed The H&P was reviewed, patient examined and no changes noted. Date Seen by Provider: Nov 26, 2016 Time Seen by Provider: 14:00 Date H&P Reviewed: Nov 26, 2016 Time H&P Reviewed: 14:20 Pre-Operative Diagnosis: Displaced left femoral neck fracture Minimally displaced left distal radiu JO ANN SMILEY DO Nov 26, 2016 4:22 pm
[2016-11-26] MEDS: LACTATED RINGERS 1,000 ML IV SCH ×3 (16:30→18:37)
[2016-11-26] MEDS ORDERED: TRANEXAMIC ACID 100 MG/ML 10 ML INJECTION IV ONE (17:17)
[2016-11-26] MEDS ORDERED: PHENYLEPHRINE 100 MCG/ML 10 ML (ANESTHESIA) SYR ONE (17:17)
--- NOTE | 2016-11-26 18:19 | Progress Note-Post Operative ---
Post-Operative Progess Note Surgeon (s)/Wet Wash Assembler (s) Surgeon Anson Orozco Wet Wash Assembler: FREDERICK PRESLEY REAL ESTATE SALES SUPERVISOR Pre-Operative Diagnosis Displaced left femoral neck fracture Minimally displaced left distal radiu Post-Operative Diagnosis same Procedure & Operative Findings Date of Procedure 11/26/16 Procedure Performed/Findings bipolar hemiarthroplasty left hip without complications, closed reduction with splinting of left wrist Anesthesia Type general Estimated Blood Loss Estimated blood loss (mL): 400 Specimens/Packing Specimens Removed femoral head, not sent for pathology Packing: none FREDERICK PRESLEY REAL ESTATE SALES SUPERVISOR Nov 26, 2016 18:19
[2016-11-26] MEDS ORDERED: BISACODYL 10 MG SUPP (DULCOLAX) PR PRN (18:30)
[2016-11-26] MEDS ORDERED: LACTATED RINGERS 1,000 ML IV PRN (18:45)
[2016-11-26 18:55] LABS: BASOPHILS # (AUTO) 0.1 10^3/uL (0.0-0.1); BASOPHILS % (AUTO) 0 % (0-10); EOSINOPHILS % (AUTO) 0 % (0-10); LYMPHOCYTES # (AUTO) 1.4 X 10^3 (1.0-4.0); LYMPHOCYTES % (AUTO) 11 % (12-44); MEAN CORPUSCULAR HEMOGLOBIN 30 PG (25-34); MEAN CORPUSCULAR HGB CONC 32 G/DL (32-36); MEAN CORPUSCULAR VOLUME 96 FL (80-99); MEAN PLATELET VOLUME 10.8 FL (7.4-10.4); MONOCYTES # (AUTO) 1.3 X 10^3 (0.0-1.0); MONOCYTES % (AUTO) 10 % (0-12); NEUTROPHILS # (AUTO) 10.3 X 10^3 (1.8-7.8); NEUTROPHILS % (AUTO) 79 % (42-75); PLATELET COUNT 146 10^3/uL (130-400); WHITE BLOOD COUNT 13.1 10^3/uL (4.3-11.0)
--- NOTE | 2016-11-26 19:22 | Diagnostic Imaging Report ---
INDICATION: Postoperative. COMPARISON: July 19, 2016. TECHNIQUE: Single radiograph of the pelvis was obtained dated November 26, 2016. FINDINGS: Interval placement of a left hip arthroplasty. Vertically oriented midline suture material is again identified, stable from prior examination. Calcific densities overlying the pelvis soft tissues, laterally, are again identified, stable from the prior examination. Single surgical clip is identified overlying the far lateral left abdomen. No additional suspicious radiopaque foreign body. No acute fracture or dislocation. Degenerative change is noted within the right hip and visualized lower lumbar spine. IMPRESSION: 1. Recent placement of a left hip arthroplasty without evidence of immediate hardware complication or acute osseous abnormality. 2. Surgical staple overlying the far left lateral pelvis. This may be at the skin surface or even be external to the patient. 3. Additional stable findings, as above, including prior postsurgical changes. Dictated by: Dictated on workstation # [id number]
[2016-11-26 19:43] VITALS: BP 136/83
[2016-11-26] MEDS: fentaNYL INJECTION 100 MCG/2 ML AMP IVP PRN ×3 (19:54→23:58)
[2016-11-26 20:10] VITALS: BP 122/85
[2016-11-26] MEDS: HYDROcodone/APAP 10 MG/325 MG (LORTAB) TAB PO PRN (21:32)
[2016-11-26] MEDS: CLINDAMYCIN INJECTION 600 MG in NS (IVPB) 50 ML IV SCH (22:00)
[2016-11-27] VITALS (13 sets, daily range): BP systolic 90–126; BP diastolic 50–72
[2016-11-27] MEDS: HYDROcodone/APAP 10 MG/325 MG (LORTAB) TAB PO PRN ×5 (01:34→22:29)
[2016-11-27] MEDS: fentaNYL INJECTION 100 MCG/2 ML AMP IVP PRN ×6 (02:12→21:10)
[2016-11-27] MEDS: D5 1/2 NS 1000 ML IV SOLUTION 1,000 ML IV SCH (04:40)
[2016-11-27 05:14] LABS: MEAN PLATELET VOLUME 10.9 FL (7.4-10.4); RED BLOOD COUNT 2.22 10^6/uL (4.35-5.85); RED CELL DISTRIBUTION WIDTH 13.8 % (10.0-14.5); WHITE BLOOD COUNT 4.6 10^3/uL (4.3-11.0)
[2016-11-27] MEDS: CLINDAMYCIN INJECTION 600 MG in NS (IVPB) 50 ML IV SCH ×2 (05:21→15:50)
[2016-11-27 05:23] LABS: INR 1.2 (0.8-1.4); PROTHROMBIN TIME PATIENT 14.7 SEC (12.2-14.7)
[2016-11-27 05:34] LABS: CALCIUM 8.2 MG/DL (8.5-10.1); CREATININE SERUM 1.2 MG/DL (0.60-1.30); POTASSIUM 5.7 MMOL/L (3.6-5.0)
[2016-11-27] MEDS ORDERED: FUROSEMIDE 40 MG/4 ML INJ (LASIX) IVP ONE ×3 (06:15→23:15)
[2016-11-27] MEDS ORDERED: ACETAMINOPHEN 500 MG TAB (TYLENOL) PO ONE (06:15)
[2016-11-27] MEDS ORDERED: diphenhydrAMINE 25 MG TAB (BENADRYL) PO ONE (06:15)
--- NOTE | 2016-11-27 06:57 | OPERATIVE REPORT ---
DATE OF SERVICE: 11/26/2016 PREOPERATIVE DIAGNOSES: 1. Displaced femoral neck fracture of left hip. 2. Displaced left distal radius fracture. POSTOPERATIVE DIAGNOSES: 1. Displaced femoral neck fracture of left hip. 2. Displaced left distal radius fracture. PROCEDURES: 1. Bipolar femoral hemiarthroplasty, left hip. 2. Closed reduction left distal radius fracture. SURGEON: Jo Ann Smiley DO DIRECTOR CASE: CÉSAR Goyal ANESTHESIA: General. INDIGO VAT TENDER CLOTH DUTIES: Santi Couch, surgical pediatric physician assistant, was utilized throughout the entire procedure for patient positioning, placement of metallic implants, wound closure, dressing application and patient transfer. INDICATIONS AND FINDINGS: The patient is an 86-year-old female who fell at home last p.m. She was seen in the office on today's date with chief complaint of left hip pain as well as left wrist pain. X-rays of the left wrist reveal a transverse metaphyseal fracture with dorsal displacement of a mild to moderate degree. She was complaining of superior left hip pain. X-rays of her left pain revealed a displaced femoral neck fracture with a valgus position to the femoral head with posterior displacement. The patient was taken to surgery where a bipolar femoral hemiarthroplasty of the left hip was performed utilizing the Biomet hip system with a press fit 10-mm Taperloc complete primary femoral porous coated reduced distal stem with a -6 mm x 28 mm modular head component with a 41 mm ring lock bipolar acetabular cup. A closed reduction of the left wrist was performed with dorsal splint application. PROCEDURE IN DETAIL: The patient was taken to the operating room, placed supine upon the operating table, and a general inhalation anesthetic was administered. The patient was then placed in a right lateral decubitus position on the pegboard system and secured to the operating table with the pegboard system. A chloraprep and sterile drape of the left hip and left lower extremity was performed. Attention was directed to the lateral aspect of the hip where an incision was made centered over the greater trochanter. The incision was deepened sharply with electrocautery to the iliotibial band. A Hardinge approach to the left hip was then performed with division of the vastus lateralis fascia as well as the gluteus medius and minimus tendons in the capsule off the anterior aspect of the femoral neck. The fracture was identified. The hip was externally rotated and flexed. An osteotomy through the femoral neck was completed with the oscillating saw. The patient had significant softening of the bone within the femoral head initially and all AWL was used to attempt to harvest the head. The head was subsequently harvested with a skid and forceps. The outside diameter of the femoral head was 41.5 mm. Bony debris was removed from the acetabulum. A box chisel was used to open the proximal femur. The canal finder was inserted. The proximal femur was broached up to a 10-mm stem and the calcar was smoothed. The hip initially was reduced with a -3 and -6 mm femoral head. The patient continued to demonstrate abnormal tensioning of the soft tissues. The broach was then used to lateralize the broach and impact it an additional 2 mm deeper. The calcar was additionally reamed. The hip was provisionally reduced and satisfactory tensioning of the soft tissues was noted. The bony surfaces were irrigated with simply normal solution. The 10-mm stem was then impacted into position and bone grafted over the anterior aspect with the bone harvested from the femoral head. The bipolar components were assembled. These were then cold-welded on the stem. The hip was reduced, taken through range of motion and found to be stable. The vastus lateralis and the gluteus medius and minimus tendons were then closed with multiple interrupted [id number] sutures of #1 Ti-Cron, reinforced with a running suture of #1 Ti-Cron. The iliotibial band was closed with a running suture of #1 Polysorb. The skin and subcutaneous tissues were closed with 0 and 2-0 Polysorb suture and the skin was closed with stainless-steel susan. Adaptic Neosporin bulky dressing was placed about the left hip. Attention was directed to the left wrist where a closed reduction was performed with the wrist maintained in a slightly flexed position. A dorsal fiberglass splint was incorporated within the dressing. The patient was then awakened and was transported to a postop recovery (ICU) in satisfactory condition. Job ID: [id number] DocumentID: [id number] Dictated Date: 11/26/2016 21:29:08 Holter Technician Date: 11/27/2016 04:25:29 Dictated By: JO ANN SMILEY DO
[2016-11-27] MEDS ORDERED: FERROUS SULF 325 MG (IRON) TAB PO SCH (07:09)
--- NOTE | 2016-11-27 07:09 | Progress Note (SOAP) ---
Subjective Date Seen by Provider: Nov 27, 2016 Time Seen by Provider: 07:06 Subjective/Events-last exam No complaints, pain controlled. preparing for blood transfusion Review of Systems General: No Chills, No Night Sweats Pulmonary: No Dyspnea Cardiovascular: No: Chest Pain Gastrointestinal: No: Nausea, Vomiting Musculoskeletal: leg pain Neurological: Weakness Objective Exam Vital Signs Date Time Temp Pulse Resp B/P (MAP) Pulse Ox O2 Delivery O2 Flow Rate FiO2 11/27/16 04:00 98.2 73 17 97/54 98 2.00 11/27/16 00:00 97.5 71 18 111/72 97 2.00 11/26/16 21:00 96 4.00 11/26/16 20:10 98.8 85 16 122/85 96 3.00 11/26/16 19:43 97.8 84 18 136/83 93 11/26/16 18:32 98.8 11/26/16 15:55 93 2.00 11/26/16 14:30 2.00 11/26/16 13:00 98.8 89 20 147/75 I & O 11/27/16 07:00 Intake Total 1100 ml Output Total 775 ml Balance 325 ml Capillary Refill : Less Than 3 Seconds General Appearance: No Apparent Distress, Other (pale) Respiratory: No Accessory Muscle Use Cardiovascular: Regular Rate, Rhythm Extremity: Normal Capillary Refill, Normal Inspection, No Calf Tenderness Neurologic/Psychiatric: Oriented x3, No Motor/Sensory Deficits Skin: Warm/Dry (dressing to left hip CDI) Results Lab Laboratory Tests 11/26/16 14:46: White Blood Count 10.2, Red Blood Count 3.14L, Hemoglobin 9.2L, Hematocrit 31L, Mean Corpuscular Volume 98, Mean Corpuscular Hemoglobin 29, Mean Corpuscular Hemoglobin Concent 30L, Red Cell Distribution Width 14.0, Platelet Count 177, Mean Platelet Volume 10.4, Neutrophils (%) (Auto) 80H, Lymphocytes (%) (Auto) 7L , Monocytes (%) (Auto) 12, Eosinophils (%) (Auto) 0, Basophils (%) (Auto) 0, Neutrophils # (Auto) 8.2H, Lymphocytes # (Auto) 0.7L, Monocytes # (Auto) 1.2H, Eosinophils # (Auto) 0.0, Basophils # (Auto) 0.0, Neutrophils % (Manual) 63, Lymphocytes % (Manual) 14, Monocytes % (Manual) 16, Eosinophils % (Manual) 0, Basophils % (Manual) 0, Band Neutrophils 7, Blood Morphology Comment NORMAL, Prothrombin Time 13.4, INR Comment 1.1, Sodium Level 139, Potassium Level 5.0, Chloride Level 102, Carbon Dioxide Level 26, Anion Gap 11, Blood Urea Nitrogen 27H, Creatinine 1.15, Estimat Glomerular Filtration Rate 45, BUN/Creatinine Ratio 23, Glucose Level 103, Calcium Level 9.5, Total Bilirubin 0.5, Aspartate Amino Transf (AST/SGOT) 15, Alanine Aminotransferase (ALT/SGPT) 12, Alkaline Phosphatase 54, Total Protein 7.7, Albumin 3.9 11/26/16 15:10: Urine Color YELLOW, Urine Clarity CLEAR, Urine pH 7, Urine Specific [place] 1.010L, Urine Protein 3+H, Urine Glucose (UA) NEGATIVE, Urine Ketones NEGATIVE, Urine Nitrite NEGATIVE, Urine Bilirubin NEGATIVE, Urine Urobilinogen NORMAL, Urine Leukocyte Esterase 3+H, Urine RBC (Auto) 5+H, Urine RBC 25-50H, Urine WBC 50-100H, Urine Crystals NONE, Urine Bacteria LARGEH, Urine Casts NONE, Urine Mucus NEGATIVE, Urine Culture Indicated YES 11/26/16 18:47: White Blood Count 13.1H, Red Blood Count 3.10L, Hemoglobin 9.4L, Hematocrit 30L , Mean Corpuscular Volume 96, Mean Corpuscular Hemoglobin 30, Mean Corpuscular Hemoglobin Concent 32, Red Cell Distribution Width 14.0, Platelet Count 146, Mean Platelet Volume 10.8H, Neutrophils (%) (Auto) 79H, Lymphocytes (%) (Auto) 11L, Monocytes (%) (Auto) 10, Eosinophils (%) (Auto) 0, Basophils (%) (Auto) 0, Neutrophils # (Auto) 10.3H, Lymphocytes # (Auto) 1.4, Monocytes # (Auto) 1.3H, Eosinophils # (Auto) 0.0, Basophils # (Auto) 0.1 11/27/16 04:25: White Blood Count 4.6, Red Blood Count 2.22L, Hemoglobin 6.4#*L, Hematocrit 22L , Mean Corpuscular Volume 98, Mean Corpuscular Hemoglobin 29, Mean Corpuscular Hemoglobin Concent 29L, Red Cell Distribution Width 13.8, Platelet Count 146, Mean Platelet Volume 10.9H, Prothrombin Time 14.7, INR Comment 1.2, Sodium Level 135, Potassium Level 5.7H, Chloride Level 102, Carbon Dioxide Level 25, Anion Gap 8, Blood Urea Nitrogen 27H, Creatinine 1.20, Estimat Glomerular Filtration Rate 42, BUN/Creatinine Ratio 23, Glucose Level 184H, Calcium Level 8.2L Assessment/Plan Assessment/Plan Assess & Plan/Chief Complaint A: s/p bipolar prosthesis left hip left hip femoral neck fracture hyperkalemia acute blood loss anemia P: 20mg lasix now followed by 2 units PRBC's with 20 of lasix between units, consult Dr. Aggarwal, up to chair today, start physical therapy, get platform walker Clinical Quality Measures DVT/VTE Risk/Contraindication: Risk Factor Score Per Nursin RFS Level Per Nursing on Admit: 4+=Very High FREDERICK PRESLEY APRN Nov 27, 2016 07:09
[2016-11-27] MEDS: NS IV 1000 ML 1,000 ML IV SCH ×2 (08:25→23:36)
--- NOTE | 2016-11-27 08:28 | Consultation ---
History of Present Illness History of Present Illness Patient Consulted On(soo/time) 11/27/16 08:24 Date of Admission 11/26/16 Reason for Visit: HIP FRACTURE History of Present Illness PT IS AN 86 Y/O FEMALE WHO IS KNOWN TO ME FROM CLINIC. SHE PRESENTED TO DR. SMILEY'S OFFICE WITH CONCERN FOR HIP FRACTURE AFTER A FALL. SHE HAD IMAGING DONE AT HIS CLINIC AND WAS FOUND TO HAVE A LEFT HIP FRACTURE. SHE WAS TAKEN TO SURGERY LAST NIGHT FOR SURGICAL REPAIR OF LEFT HIP FRACTURE ( SEE HIS OPERATIVE NOTE FOR FULL DETAILS). THIS MORNING, THE NURSING STAFF CALLED TO REPORT A SIGNIFICANT DROP IN HER HEMOGLOBIN FROM 9.2 TO 6.4 - SURGICAL DIRECTOR OF CUSTOMER ACQUISITION HAD ALREADY ORDERED 2 UNITS OF BLOOD TO BE GIVEN TO PATIENT. NURSING STAFF WAS ALSO REPORTING LOW URINE OUTPUT, BLOODY URINE AND DYSPNEA, FOR WHICH PATIENT WAS GIVEN IV LASIX Allergies and Home Medications Allergies Coded Allergies: Sulfa (Sulfonamide Antibiotics) (Verified Allergy, Mild, 03/09/12) codeine (Verified Allergy, Mild, HAS TAKEN LORTAB IN THE PAST, 07/17/16) meclizine (Verified Allergy, Mild, 03/09/12) Penicillins (Unverified Allergy, Unknown, Has received Ancef in the past, 07/17/16) diphenhydramine (Verified Adverse Reaction, Severe, 11/27/16) severe confusion Home Medications Alprazolam 0.25 Mg Tablet, 0.25 MG PO HS, (Reported) Cholecalciferol 2,000 Unit Capsule, 2,000 UNIT PO DAILY, (Reported) Cyanocobalamin (Vitamin B-12) 1,000 Mcg/15 Ml Liquid, 1 ML PO DAILY, (Reported) Estrogens Conjugated 30 Gm Cr, 1 APPFUL VG TWICE WEEKLY, (Reported) Ferrous Sulfate 325 Mg Tablet, 325 MG PO DAILY, (Reported) Furosemide 40 Mg Tablet, 40 MG PO DAILY, (Reported) Hydrocodone/Acetaminophen 1 Each Tablet, 1 TAB PO Q6H PRN for PAIN, (Reported) Inulin/Sorbitol 2 Gm Tab.chew, 2 GM PO DAILY, (Reported) L.acidoph & Paracasei,B.lactis 1 Each Capsule, 1 CAP PO DAILY, (Reported) Magnesium Oxide 400 Mg Tablet, 400 MG PO HS, (Reported) Potassium Chloride 20 Meq Tab.er.prt, 20 MEQ PO DAILY, (Reported) Rosuvastatin Calcium 10 Mg Tablet, 10 MG PO HS, (Reported) Tolterodine Tartrate 4 Mg Cap.er.24h, 4 MG PO HS, (Reported) Trimethoprim 100 Mg Tablet, 100 MG PO DAILY, (Reported) [Prelief] , 2 CAP PO DAILY@1600, (Reported) Past Ikpaaio-Zimdda-Bejnjh Hx Patient Social History Alcohol Use: Denies Use Recreational Drug Use: No Smoking Status: Never a Smoker 2nd Hand Smoke Exposure: No Recent Foreign Travel: No Contact w/Someone Who Travel: No Recent Infectious Disease Expo: No Recent Hopitalizations: No Physical Abuse Screen: No Sexual Abuse: No Immunizations Up To Date PED Vaccines UTD: No Date of Pneumonia Vaccine: Mar 22, 2014 Date of Influenza Vaccine: Apr 22, 2016 Seasonal Allergies Seasonal Allergies: No Surgeries HX Surgeries: Yes (APPY, OSMAR, BLADDER REPAIR X2, INGUINAL HERNIA REPAIR X2, TOTAL KNEE REPLA) Surgeries: Appendectomy, Bladder Surgery, Gallbladder, Open Heart Surgery, Orthopedic Respiratory Hx Respiratory Disorders: Yes Respiratory Disorders: COPD Cardiovascular Hx Cardiac Disorders: Yes (CABG X6) Cardiac Disorders: Hypertension Neurological Hx Neurological Disorders: No Reproductive System : No Hx Reproductive Disorders: Yes Sexually Transmitted Disease: No HIV/AIDS: No Female Reproductive Disorders: Denies Genitourinary Hx Genitourinary Disorders: Yes Genitourinary Disorders: UTI-Chronic Gastrointestinal Hx Gastrointestinal Disorders: Yes (irr bowel, diverticulitis) Gastrointestinal Disorders: Diverticulosis, Irritable Bowel Musculoskeletal Hx Musculoskeletal Disorders: Yes (USE CANE) Musculoskeletal Disorders: Arthritis Endocrine Hx Endocrine Disorders: No HEENT HX ENT Disorders: Yes (PARTIAL DENTURES) HEENT Disorders: Macular Degeneration Loss of Vision: Bilateral Cancer Hx Cancer: No Psychosocial Hx Psychiatric Problems: Yes Behavioral Health Disorders: Anxiety Integumentary HX Skin/Integumentary Disorder: No Blood Transfusions Hx Blood Disorders: No Adverse Reaction to a Blood Tr: No Reviewed Nursing Assessment Reviewed/Agree w Nursing PMH: Yes Family Medical History Significant Family History: Heart Disease, Hypertension Family Medial History: CAD 19 MOTHER Glaucoma 19 MOTHER Hypertension 19 MOTHER Review of Systems-General Date Seen by Provider: Nov 27, 2016 Time Seen by Provider: 08:24 Constitutional: No chills, No fever, malaise, weakness EENTM: No hoarseness, No throat pain Respiratory: No cough, dyspnea on exertion, short of breath Cardiovascular: No chest pain, No edema Gastrointestinal: No abdominal pain, No constipation, No diarrhea, No nausea, No vomiting Genitourinary: frequency, hematuria Musculoskeletal: back pain, other (HIP PAIN, WRIST PAIN) Skin: no symptoms reported Psychiatric/Neurological: Anxiety All Other Systems Reviewed Negative Unless Noted: Yes Physical Exam-General Problems Physical Exam Vital Signs Vital Sign - Last 12Hours 11/26/16 11/26/16 11/26/16 13:00 14:30 15:55 Temp 98.8 Pulse 89 Resp 20 B/P (MAP) 147/75 Pulse Ox 93 O2 Flow Rate 2.00 Capillary Refill : Less Than 3 Seconds General Appearance: WD/WN, moderate distress Eyes: Bilateral Eye EOMI, Bilateral Eye Normal Inspection, Bilateral Eye PERRL HEENT: PERRL/EOMI, pharynx normal Neck: non-tender, supple, normal inspection Respiratory: chest non-tender, decreased breath sounds, wheezing Cardiovascular: regular rate, rhythm Gastrointestinal: normal bowel sounds, non tender, soft, no organomegaly, no pulsatile mass Rectal: deferred Back: normal inspection Extremities: other (LEFT WRIST/FOREARM IN SPLINT, HIP WITH DRESSING IN PLACE) Neurologic/Psychiatric: systems security consultant II-XII nml as tested, alert, normal mood/affect, oriented x 3 Skin: warm/dry Lymphatic: no adenopathy Assessment/Plan Assessment/Plan Admission Diagnosis/Plan LEFT HIP FRACTURE URINARY TRACT INFECTION CHRONIC ANEMIA WITH POST OP BLOOD LOSS DYSPNEA CHRONIC PAIN SYNDROME LEFT HIP FRACTURE - PHYSICAL THERAPY , WILL NEED TO SWING PATIENT FOR IV ANTIBIOTICS VERSUS INPATIENT REHAB EVAL VERSUS [facility] PLACEMENT. URINARY TRACT INFECTION - WAITING ON SPECIATION - ANTIBIOTICS CHANGED. CHRONIC ANEMIA WITH POST OP BLOOD LOSS - BLOOD TRANSFUSION TODAY - WILL GIVE BLOOD AND CHECK LABS, MAY NEED TO CONSIDER IV IRON OUTPATIENT. DYSPNEA- LASIX TODAY. CHRONIC PAIN SYNDROME- IV PAIN MEDICATION, ORAL PAIN MEDICATION PRN. ANXIETY - RESTARTED HOME ALPRAZOLAM FOR PRN USE. Clinical Quality Measures DVT/VTE Risk/Contraindication: Risk Factor Score Per Nursin RFS Level Per Nursing on Admit: 4+=Very High DONTAE KERN MD Nov 27, 2016 08:28
[2016-11-27] MEDS ORDERED: ACETAMINOPHEN 325 MG TABLET/CAPLET (TYLENOL) ONE (08:45)
[2016-11-27] MEDS: FUROSEMIDE 40 MG (LASIX) TAB PO SCH (08:47)
[2016-11-27] MEDS ORDERED: NON-FORMULARY MEDICATION 1 EA EA (Trimethoprim 100 MG) PO SCH (09:00)
[2016-11-27] MEDS: LACTOBACILLUS Acidoph/Bulgar (LACTINEX/FLORANEX) TAB PO SCH (09:02)
[2016-11-27] MEDS: ASPIRIN E.C. 325 MG (ECOTRIN) TABLET PO SCH (09:02)
[2016-11-27] MEDS: ENOXAPARIN 30 MG/0.3 ML (LOVENOX) SYR SC SCH (09:03)
--- NOTE | 2016-11-27 09:31 | Physical Therapy Progress Note ---
Therapy Progress Note Date Seen by Provider: Nov 27, 2016 Time Seen by Provider: 08:30 Patient's Hgb is critically low and will receive blood products on this date. Per family, no PT at this time. PT will continue to monitor patient's status 1 visit SARA ENGLISH PT Nov 27, 2016 09:31
[2016-11-27] MEDS ORDERED: LORATADINE (CLARITIN) 10 MG TAB PO NR (09:45)
[2016-11-27] MEDS ORDERED: LEVOFLOXACIN 500 MG/100 ML IV 100 ML IV NR (09:45)
[2016-11-27] MEDS ORDERED: FUROSEMIDE 40 MG/4 ML INJ (LASIX) ONE (11:38)
[2016-11-27] MEDS: KETOROLAC 15 MG/ML VIAL IVP PRN ×2 (13:18→20:02)
--- NOTE | 2016-11-27 13:49 | Physical Therapy Progress Note ---
Therapy Progress Note Date Seen by Provider: Nov 27, 2016 Time Seen by Provider: 13:11 Patient receiving last of PRBC. No treatment per daughter. PT will assess patient in a.m. 1 visit SARA ENGLISH PT Nov 27, 2016 13:49
--- NOTE | 2016-11-27 13:53 | Anesthesia-General Post-Op ---
General Patient Condition Mental Status/LOC: Same as Preop Cardiovascular: Satisfactory Nausea/Vomiting: Absent Respiratory: Satisfactory Pain: Controlled Complications: Absent Post Op Complications Complications None Follow Up Care/Instructions Patient Instructions None needed. Anesthesia/Patient Condition Patient Condition Patient is doing well, no complaints, stable vital signs, no apparent adverse anesthesia problems. No complications reported per nursing. RICO BOOTH CRNA Nov 27, 2016 13:53
--- NOTE | 2016-11-27 14:33 | Occ Therapy Progress Note ---
Therapy Progress Note OT order received. OT attempted to see pt. However, pt. getting blood and nursing reports that she has been symptomatic. Nursing requests that OT hold therapy at this time. Daughter comes into room and requests the same thing. Daughter states that she has already told PT this as well. Will check back tomorrow. 1335 1, visit VIRI ALEJANDRO OT Nov 27, 2016 14:33
[2016-11-27] MEDS ORDERED: LEVOFLOXACIN 500 MG/100 ML IV 100 ML ONE (17:41)
[2016-11-27] MEDS: FUROSEMIDE 40 MG/4 ML INJ (LASIX) IVP SCH (17:46)
[2016-11-27] MEDS ORDERED: ALPRAZolam 0.25 MG (XANAX) TAB PO ONE (19:30)
[2016-11-27] MEDS: ESTROGENS CONJ. CREAM 30 GM (PREMARIN) TUBE VG SCH (21:00)
[2016-11-27] MEDS: ROSUVASTATIN 5 MG (CRESTOR) TABLET PO SCH (21:09)
[2016-11-27] MEDS: TOLTERODINE LA 4 MG (DETROL) CAP PO SCH (21:09)
[2016-11-27] MEDS: FERROUS SULF 325 MG (IRON) TAB PO SCH (21:09)
[2016-11-27] MEDS: MAGNESIUM OXIDE (MAG-OX)400 MG TAB PO SCH (21:10)
[2016-11-27] MEDS: SENNA W/DOCUSATE (SENOKOT S) TABLET PO SCH (21:10)
[2016-11-27] MEDS: ALPRAZolam 0.25 MG (XANAX) TAB PO SCH (21:11)
[2016-11-28] VITALS (12 sets, daily range): BP systolic 97–129; BP diastolic 48–70
[2016-11-28] MEDS: fentaNYL INJECTION 100 MCG/2 ML AMP IVP PRN ×6 (00:07→21:59)
[2016-11-28] MEDS: NS IV 1000 ML 1,000 ML IV SCH (03:48)
[2016-11-28] MEDS: HYDROcodone/APAP 10 MG/325 MG (LORTAB) TAB PO PRN ×5 (03:48→23:33)
[2016-11-28] MEDS: ALPRAZolam 0.25 MG (XANAX) TAB PO PRN ×2 (04:02→13:19)
[2016-11-28] MEDS: KETOROLAC 15 MG/ML VIAL IVP PRN (05:52)
[2016-11-28 06:31] LABS: MEAN PLATELET VOLUME 10.9 FL (7.4-10.4); RED BLOOD COUNT 2.68 10^6/uL (4.35-5.85); RED CELL DISTRIBUTION WIDTH 16.2 % (10.0-14.5)
[2016-11-28 06:45] LABS: INR 1.1 (0.8-1.4); PROTHROMBIN TIME PATIENT 13.8 SEC (12.2-14.7)
[2016-11-28] MEDS: LACTOBACILLUS Acidoph/Bulgar (LACTINEX/FLORANEX) TAB PO SCH (06:51)
[2016-11-28] MEDS: FUROSEMIDE 40 MG/4 ML INJ (LASIX) IVP SCH ×2 (06:51→17:16)
[2016-11-28 06:57] LABS: CALCIUM 7.5 MG/DL (8.5-10.1); CREATININE SERUM 1.59 MG/DL (0.60-1.30)
[2016-11-28] MEDS: SENNA W/DOCUSATE (SENOKOT S) TABLET PO SCH ×2 (08:00→20:12)
[2016-11-28] MEDS ORDERED: NS IV 500 ML 500 ML IV SCH (09:19)
[2016-11-28] MEDS ORDERED: FUROSEMIDE 40 MG/4 ML INJ (LASIX) IVP ONE ×3 (09:30→10:15)
[2016-11-28] MEDS: ENOXAPARIN 30 MG/0.3 ML (LOVENOX) SYR SC SCH (09:48)
[2016-11-28] MEDS: ASPIRIN E.C. 325 MG (ECOTRIN) TABLET PO SCH (09:48)
--- NOTE | 2016-11-28 10:04 | Physical Therapy Evaluation ---
PT Evaluation-General Medical Diagnosis Admission Date Nov 26, 2016 at 14:08 Medical Diagnosis: displaced left femoral neck fracture Onset Date: Nov 26, 2016 Therapy Diagnosis Therapy Diagnosis: generalized weakness and debility Height/Weight Height (Feet): 5 Height (Inches): 3.00 Weight (Pounds): 150 Weight (Ounces): 5.0 Precautions Precautions/Isolations: Fall Prevention, Standard Precautions Weight Bear Status Weight Bearing Restriction: Weight Bearing/Tolerated Location Restriction: L LE Referral Physician: Ernesto Reason for Referral: Evaluation/Treatment Medical History Pertinent Medical History: Atrial Fib, CABG, HTN, Macular Degenertion Current History s/p fall at home resulting in fracture left hip Reviewed History: Yes Social History Home: Single Level Current Living Status: Other Family Prior/[facility] Prior Level of Function Functional [place] Measure 0=Not Assessed/NA 4=Minimal Assistance 1=Total Assistance 5=Supervision or Setup 2=Maximal Assistance 6=Modified Bradford 3=Moderate Assistance 7=Complete Bradford Bed Mobility: 6 Transfers (B,C,W/C) (FIM): 6 Gait: 6 uses FWW PLOF PT Evaluation-Current Subjective Patient is in bed with family present. Agrees to PT. Pain Numeric Pain Scale: 3 Location: Left Location Body Site: Hip Pain Description: Ache, Acute Objective Patient Orientation: Normal For Age Problem Solving: Good Attachments: Oxygen, Gregory Catheter, IV ROM/Strength ROM Lower Extremities left hip precautions right LE WFL Strenght Lower Extremities right LE 3/5 grossly left LE 3+/5 grossly Integumentary/Posture Integumentary refer to nursing notes Bowel Incontinence: No Bladder Incontinence: Gregory Cath Posture WNL Neuromuscular (Tone, Coordination, Reflexes) grossly intact Sensory Vision: Blind Totally Hearing: Functional Sensation Right Lower Extremit: Intact Sensation Left Lower Extremity: Intact Transfers Functional Bradford Measure 0=Not Assessed/NA 4=Minimal Assistance 1=Total Assistance 5=Supervision or Setup 2=Maximal Assistance 6=Modified [place] 3=Moderate Assistance 7=Complete Bradford Transfers (B, C, W/C) (FIM): 2 Scootin Rollin Supine to/from Sit: 2 due to decreased Hgb and patient c/o dizziness, sit to stand NT at this time. Gait Mode of Locomotion: Walk Anticipated Mode of Locomotion: Walk Balance Sitting Static: Normal Sitting Dynamic: Normal Assessment/Needs 86 y.o. female, will benefit from skilled PT to address functional strength and mobility to improve current LOF and to safely return to home or care facility at maximum LOF. Patient has a very supportive family and caregivers. Rehab Potential: Good PT School Social Worker Goals [facility]pc Goals PT School Social Worker Goals Time Frame: Dec 19, 2016 Transfers (B,C,W/C) (FIM): 5 Gait (FIM): 2 Gait distance (FIM): 6=360-22 ft Distance: 50' Gait Level of Assist: 4 Gait Assistive Device: Walker Platform PT Plan Problem List Problem List: Activity Tolerance, Functional Strength, Balance, Gait, Transfer , Bed Mobility Treatment/Plan Treatment Plan: Continue Plan of Care Treatment Plan: Bed Mobility, Education, Functional Activity Christine, Functional Strength, Gait, Safety, Therapeutic Exercise, Transfers Treatment Duration: Dec 19, 2016 # of days/week 6 Visits Per Week: 11 Pt/Family Agrees w/Plan: Yes Safety Risks/Education Patient Education: Safety Issues Teaching Recipient: Patient, Family Teaching Methods: Discussion Response to Teaching: Verbalize Understanding Discharge Recommendations Therapy D/C Recommendations: Home w/ Family Support, Physical Therapy Home Care , Detention (TCU/NH) Time/GCodes Time In: 850 Time Out: 905 Total Billed Treatment Time: 15 Total Billed Treatment 1 visit EVLowC 15 min SARA ENGLISH PT Nov 28, 2016 10:04
--- NOTE | 2016-11-28 10:16 | Progress Note (SOAP) ---
Subjective Date Seen by Provider: Nov 28, 2016 Time Seen by Provider: 09:15 Subjective/Events-last exam PT REPORTS THAT SHE IS FEELING BETTER - BUT A LITTLE SHORT OF BREATH TODAY. Review of Systems General: No Fatigue Pulmonary: Dyspnea, Cough Cardiovascular: No: Chest Pain Gastrointestinal: No: Abdominal Pain, Nausea Genitourinary: Hematuria Neurological: Weakness, No: Confusion Objective Exam Vital Signs Date Time Temp Pulse Resp B/P (MAP) Pulse Ox O2 Delivery O2 Flow Rate FiO2 11/28/16 07:53 2.00 11/28/16 07:49 97.2 87 18 129/70 97 4.00 11/28/16 04:20 96.8 82 20 111/65 98 4.00 11/28/16 00:10 97.5 73 20 108/70 99 4.00 11/27/16 21:00 4.00 11/27/16 19:10 98.2 82 18 114/64 98 4.00 11/27/16 15:38 97.4 80 20 126/58 98 2.00 11/27/16 15:24 97.4 84 18 122/61 98 4.00 11/27/16 13:24 98.0 77 18 90/50 98 4.00 11/27/16 13:00 97.3 77 18 96/53 97 4.00 11/27/16 12:52 97.3 77 18 96/53 97 4.00 11/27/16 12:00 97.3 72 22 112/62 98 2.00 11/27/16 11:38 97.3 72 18 112/62 98 2.00 I & O 11/28/16 07:00 Intake Total 1110 ml Output Total 825 ml Balance 285 ml Capillary Refill : Less Than 3 Seconds General Appearance: No Apparent Distress, WD/WN HEENT: PERRL/EOMI, Pharynx Normal Neck: Full Range of Motion, Supple Respiratory: Chest Non Tender, Crackles, Decreased Breath Sounds Cardiovascular: Regular Rate, Rhythm Gastrointestinal: normal bowel sounds, non tender, soft, no organomegaly, no pulsatile mass Extremity: No Pedal Edema Neurologic/Psychiatric: Alert, Oriented x3, No Motor/Sensory Deficits, Normal Mood/Affect Skin: Warm/Dry Lymphatic: No Adenopathy Results Lab Laboratory Tests 11/28/16 06:05: White Blood Count 8.0, Red Blood Count 2.68L, Hemoglobin 7.8#L, Hematocrit 25L, Mean Corpuscular Volume 93, Mean Corpuscular Hemoglobin 29, Mean Corpuscular Hemoglobin Concent 31L, Red Cell Distribution Width 16.2H, Platelet Count 116L, Mean Platelet Volume 10.9H, Prothrombin Time 13.8, INR Comment 1.1, Sodium Level 132L, Potassium Level 5.0, Chloride Level 101, Carbon Dioxide Level 22, Anion Gap 9, Blood Urea Nitrogen 33H, Creatinine 1.59H, Estimat Glomerular Filtration Rate 31, BUN/Creatinine Ratio 21, Glucose Level 89, Calcium Level 7.5L Microbiology 11/26/16 MRSA Screen - Final, Complete MRSA not isolated 11/26/16 Urine Culture - Preliminary, Resulted Escherichia Coli Enterococcus Faecalis Gram Negative Davi Assessment/Plan Assessment/Plan Assess & Plan/Chief Complaint LEFT HIP FRACTURE URINARY TRACT INFECTION CHRONIC ANEMIA WITH POST OP BLOOD LOSS DYSPNEA CHRONIC PAIN SYNDROME ANXIETY LEFT HIP FRACTURE - PHYSICAL THERAPY , WILL NEED TO SWING PATIENT FOR IV ANTIBIOTICS VERSUS INPATIENT REHAB EVAL VERSUS SENIOR LIVING PLACEMENT. URINARY TRACT INFECTION - ANTIBIOTICS CHANGED - STARTED ON LEVAQUIN AND ROCEPHIN TODAY - STILL ONE ORGANISM WAITING ON SPECIATION. CHRONIC ANEMIA WITH POST OP BLOOD LOSS - BLOOD TRANSFUSION AGAIN TODAY - WILL GIVE BLOOD AND CHECK LABS, MAY NEED TO CONSIDER IV IRON OUTPATIENT. DYSPNEA- LASIX TODAY BEFORE BLOOD, DECREASE IV FLUIDS TO TKO CHRONIC PAIN SYNDROME- IV PAIN MEDICATION, ORAL PAIN MEDICATION PRN. ANXIETY - RESTARTED HOME ALPRAZOLAM FOR PRN USE. Clinical Quality Measures DVT/VTE Risk/Contraindication: Risk Factor Score Per Nursin RFS Level Per Nursing on Admit: 4+=Very High DONTAE KERN MD Nov 28, 2016 10:16
[2016-11-28] MEDS ORDERED: cefTRIAXone INJECTION 1,000 MG in NS (IVPB) 50 ML IV NR (10:41)
--- NOTE | 2016-11-28 13:07 | Progress Note (SOAP) ---
Subjective Date Seen by Provider: Nov 28, 2016 Time Seen by Provider: 13:05 Subjective/Events-last exam No complaints, currently getting blood. pain controlled Objective Exam Vital Signs Date Time Temp Pulse Resp B/P (MAP) Pulse Ox O2 Delivery O2 Flow Rate FiO2 11/28/16 12:45 98.0 83 18 115/62 Nasal Cannula 2.00 11/28/16 12:00 98.0 83 20 115/62 90 Nasal Cannula 4.00 11/28/16 07:53 2.00 11/28/16 07:50 4.00 11/28/16 07:49 97.2 87 18 129/70 97 4.00 11/28/16 04:20 96.8 82 20 111/65 98 4.00 11/28/16 00:10 97.5 73 20 108/70 99 4.00 11/27/16 21:00 4.00 11/27/16 19:10 98.2 82 18 114/64 98 4.00 11/27/16 15:38 97.4 80 20 126/58 98 2.00 11/27/16 15:24 97.4 84 18 122/61 98 4.00 11/27/16 13:24 98.0 77 18 90/50 98 4.00 I & O 11/28/16 07:00 Intake Total 1110 ml Output Total 825 ml Balance 285 ml Capillary Refill : Less Than 3 Seconds General Appearance: No Apparent Distress Extremity: Normal Capillary Refill, Normal Inspection, No Calf Tenderness, No Pedal Edema Neurologic/Psychiatric: Alert, Oriented x3, No Motor/Sensory Deficits, Normal Mood/Affect Skin: Normal Color, Warm/Dry (dressing left hip has trace spotty serosang drainage) Results Lab Laboratory Tests 11/28/16 06:05: White Blood Count 8.0, Red Blood Count 2.68L, Hemoglobin 7.8#L, Hematocrit 25L, Mean Corpuscular Volume 93, Mean Corpuscular Hemoglobin 29, Mean Corpuscular Hemoglobin Concent 31L, Red Cell Distribution Width 16.2H, Platelet Count 116L, Mean Platelet Volume 10.9H, Prothrombin Time 13.8, INR Comment 1.1, Sodium Level 132L, Potassium Level 5.0, Chloride Level 101, Carbon Dioxide Level 22, Anion Gap 9, Blood Urea Nitrogen 33H, Creatinine 1.59H, Estimat Glomerular Filtration Rate 31, BUN/Creatinine Ratio 21, Glucose Level 89, Calcium Level 7.5L Microbiology 11/26/16 MRSA Screen - Final, Complete MRSA not isolated 11/26/16 Urine Culture - Preliminary, Resulted Escherichia Coli Enterococcus Faecalis Gram Negative Davi Assessment/Plan Assessment/Plan Assess & Plan/Chief Complaint A: s/p bipolar prosthesis left hip left hip displaced femoral neck fracture hyperkalemia - resolved acute on chronic blood loss anemia P: Continue current treatment, prepare for DC to swing or skilled. When anemia improves attempt to improve activity levels Clinical Quality Measures DVT/VTE Risk/Contraindication: Risk Factor Score Per Nursin RFS Level Per Nursing on Admit: 4+=Very High FREDERICK PRESLEY APRN Nov 28, 2016 1:07 pm
--- NOTE | 2016-11-28 13:11 | Occupational Therapy Eval ---
OT Evaluation-General/PLF Medical Diagnosis Admission Date Nov 26, 2016 at 14:08 Medical Diagnosis: displaced left femoral neck fracture Onset Date: Nov 26, 2016 Therapy Diagnosis Therapy Diagnosis: impaired self care skills Height/Weight Height (Feet): 5 Height (Inches): 3.00 Weight (Pounds): 150 Weight (Ounces): 5.0 Precautions Precautions/Isolations: Fall Prevention, Standard Precautions Weight Bear Status Weight Bearing Restriction: Weight Bearing/Tolerated Location Restriction: L LE Referral Physician: Ernesto Medical History Pertinent Medical History: Atrial Fib, CABG, HTN, Macular Degenertion Additional Medical History inguinal hernia repair, total knee, diverticulosis Current History Pt had fall at home resulting in left hip fracture and left wrist fracture. Pt s /p bipolar prosthesis left hip. Reviewed History: Yes Social History Home: Single Level Current Living Status: Alone Steps Into Home: 1 ADL-Prior Level of Function ADL PLOF Comments Pt states she lives in a duplex and her friend lives in the other side of the duplex. 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 Friend assists pt with meals, bathing, medication set up, bill pay, and transportation. Pt states she requires assist to fasten bra, but can complete the remainder of dressing tasks without assistance. Daughter also lives nearby and assists with housework and other tasks as needed. DME/Equipment: Bath Chair, Grab Bars, Shower, Tall Toilet Drive Self: No OT Current Status Subjective Pt in bed with friend present, agrees to evaluation. RN states pt was dizzy earlier when sitting up, but is okay for bed level activity. Pt will be receiving blood again today. Pt reports pain in left hip and wrist, but does not rate. Mental Status/Objective Patient Orientation: Person, Place Attachments: Gregory Catheter, IV, Oxygen Current Dentures/Partials: Yes (partial) Hand Dominance: Right Upper Extremity ROM right UE grossly WFL Left UE mildly decreased at shoulder. Left wrist is splinted secondary to fracture Upper Extremity Coordination Right: fair Left: unable to assess secondary to splinting. ADL-Treatment ADL-Current Pt participated in UE assessment while in bed. Pt states she was able to feed herself some breakfast with minimal assistance. Does require assist with set up. Education provided regarding role and purpose of OT and plan of care. Pt states understanding of education and is in agreement with plan of care. Pt resting in bed with needs met and visitors present after session. Functional [place] Measure 0=Not Assessed/NA 4=Minimal Assistance 1=Total Assistance 5=Supervision or Setup 2=Maximal Assistance 6=Modified [place] 3=Moderate Assistance 7=Complete IndependenceIRFPAI Quality Coding Scale 6 Independent with activity with or without an assistive device 5 Patient requires set up or clean up by helper. Patient completes activity by themselves 4 Supervision or touching assist (CGA). [place] provide cues , steadying assist 3 The helper provides less than half the effort to complete the activity 2 The helper provides more than half the effort to complete the activity 1 Dependent. The helper does all the effort to complete an activity 7 Patient refused to complete or attempt activity 9 The patient did not perform the activity before the current illness or injury 88 Not attempted due to Medical conditions or safety concerns Education OT Patient Education: Rehab process Teaching Recipient: Patient Teaching Methods: Discussion Response to Teaching: Verbalize Understanding OT Short Term Goals Short Term Goals 1=Demonstrate adherence to instructed precautions during ADL tasks. 2=Patient will verbalize/demonstrate understanding of assistive devices/ modifications for ADL. 3=Patient will improve strength/tolerance for activity to enable patient to perform ADL's. OT Office Clinician Goals Office Clinician Goals Time Frame: Dec 19, 2016 Eating (FIM): 5 1=Demonstrate adherence to instructed precautions during ADL tasks. 2=Patient will verbalize/demonstrate understanding of assistive devices/ modifications for ADL. 3=Patient will improve strength/tolerance for activity to enable patient to perform ADL's. OT Education/Plan Treatment Plan/Plan of Care Patient would benefit from OT for education, treatment and training to promote independence in ADL's, mobility, safety and/or upper extremity function for ADL' s. Rehab Potential: NEELAM Krishna OT Nov 28, 2016 13:11
--- NOTE | 2016-11-28 13:49 | Physical Therapy Daily Note ---
PT Daily Note-Current Subjective Patient receiving 1 of 2 units of PRBC. Agrees to PT. Pain Numeric Pain Scale: 3 Location: Left Location Body Site: Hip Pain Description: Acute Mental Status Patient Orientation: Normal For Age Attachments: Oxygen, Gregory Catheter, IV Transfers Functional [place] Measure 0=Not Assessed/NA 4=Minimal Assistance 1=Total Assistance 5=Supervision or Setup 2=Maximal Assistance 6=Modified [place] 3=Moderate Assistance 7=Complete IndependenceIRFPAI Quality Coding Scale 6 Independent with activity with or without an assistive device 5 Patient requires set up or clean up by helper. Patient completes activity by themselves 4 Supervision or touching assist (CGA). [place] provide cues , steadying assist 3 The helper provides less than half the effort to complete the activity 2 The helper provides more than half the effort to complete the activity 1 Dependent. The helper does all the effort to complete an activity 7 Patient refused to complete or attempt activity 9 The patient did not perform the activity before the current illness or injury 88 Not attempted due to Medical conditions or safety concerns Transfers (B, C, W/C) (FIM): 2 Scootin Rollin Supine to/from Sit: 2 Weight Bearing Weight Bearing Restriction: Weight Bearing/Tolerated Location Restriction: L LE Exercises Seated Therapy Exercises: Ankle pumps, Long arc quads Seated Reps: 10 (2 sets) Assessment Patient tolerated treatment, however, fatigues very quickly with minimal activity. PT to increase activity as tolerated. PT Six Sigma Black Belt Engineer Goals Senior Living Goals PT Senior Living Goals Time Frame: Dec 19, 2016 Transfers (B,C,W/C) (FIM): 5 Gait (FIM): 2 Gait distance (FIM): 9=041-04 ft Distance: 50' Gait Level of Assist: 4 Gait Assistive Device: Walker Platform PT Plan Treatment/Plan Treatment Plan: Continue Plan of Care Treatment Plan: Bed Mobility, Education, Functional Activity Christine, Functional Strength, Gait, Safety, Therapeutic Exercise, Transfers Treatment Duration: Dec 19, 2016 Visits Per Week: 11 Time/GCodes Time In: 1326 Time Out: 1336 Total Billed Treatment Time: 10 Total Billed Treatment 1 visit EX 10 min SARA ENGLISH PT Nov 28, 2016 13:49
--- NOTE | 2016-11-28 15:28 | Occupational Therapy Eval ---
OT Evaluation-General/PLF Medical Diagnosis Admission Date Nov 26, 2016 at 14:08 Medical Diagnosis: displaced left femoral neck fracture Onset Date: Nov 26, 2016 Therapy Diagnosis Therapy Diagnosis: impaired self care skills Height/Weight Height (Feet): 5 Height (Inches): 3.00 Weight (Pounds): 150 Weight (Ounces): 5.0 Precautions Precautions/Isolations: Fall Prevention, Standard Precautions Weight Bear Status Weight Bearing Restriction: Weight Bearing/Tolerated Location Restriction: L LE Referral Physician: Ernesto Medical History Pertinent Medical History: Atrial Fib, CABG, HTN, Macular Degenertion Additional Medical History inguinal hernia repair, total knee, diverticulosis Current History Pt had fall at home resulting in left hip fracture and left wrist fracture. Pt s /p bipolar prosthesis left hip. Reviewed History: Yes Social History Home: Single Level Current Living Status: Alone Steps Into Home: 1 ADL-Prior Level of Function ADL PLOF Comments Pt state she lives in a duplex and her friend lives in the other side of the duplex. Pt is blind(can see shadows minimally per her report). Friend assists pt with meals, bathing medication set up, bill pay, and transportation. Pt states she requires assist to fasten bra, but can complete the remainder of dressing tasks without assistance. Daughter also lives nearby and assists with housework and other tasks as needed. DME/Equipment: Bath Chair, Grab Bars, Shower, Tall Toilet Drive Self: No OT Current Status Subjective Pt in bed with friend present, agrees to evaluation. RN states pt was dizzy earlier when sitting up, but is okay for bed level activity. Pt will be receiving blood again today. Pt reports pain in left hip and wrist, but does not rate. Mental Status/Objective Patient Orientation: Person, Place, Situation Attachments: Gregory Catheter, IV, Oxygen Current Dentures/Partials: Yes (partial) Hand Dominance: Right Upper Extremity ROM Right UE grossly WFL Left UE mildly decreased at shoulder. Left wrist is splinted secondary to fracture Upper Extremity Coordination Right: fair Left: unable to assess secondary to splinting ADL-Treatment ADL-Current Pt participated in UE assessment while in bed. Pt states she was able to feed herself some breakfast with minimal assistance. Does require assist with set up. Education provided regarding role and purpose of OT and plan of care. Pt states understanding of education and is in agreement with plan of care. Pt resting in bed with needs met and visitors present after session. Functional [place] Measure 0=Not Assessed/NA 4=Minimal Assistance 1=Total Assistance 5=Supervision or Setup 2=Maximal Assistance 6=Modified [place] 3=Moderate Assistance 7=Complete IndependenceIRFPAI Quality Coding Scale 6 Independent with activity with or without an assistive device 5 Patient requires set up or clean up by helper. Patient completes activity by themselves 4 Supervision or touching assist (CGA). [place] provide cues , steadying assist 3 The helper provides less than half the effort to complete the activity 2 The helper provides more than half the effort to complete the activity 1 Dependent. The helper does all the effort to complete an activity 7 Patient refused to complete or attempt activity 9 The patient did not perform the activity before the current illness or injury 88 Not attempted due to Medical conditions or safety concerns Education OT Patient Education: Rehab process Teaching Recipient: Patient Teaching Methods: Discussion Response to Teaching: Verbalize Understanding OT Short Term Goals Short Term Goals 1=Demonstrate adherence to instructed precautions during ADL tasks. 2=Patient will verbalize/demonstrate understanding of assistive devices/ modifications for ADL. 3=Patient will improve strength/tolerance for activity to enable patient to perform ADL's. OT Res Counselor Goals M[facility] Goals Time Frame: Dec 19, 2016 Eating (FIM): 5 Grooming(FIM): 5 Upper Body Dressing(FIM): 4 Toileting(FIM): 4 Toilet/Commode Transfer(FIM): 4 Additional Goals: 1-Demonstrate ADL Tasks, 2-Verbalize Understanding, 3- ImproveStrength/Christine 1=Demonstrate adherence to instructed precautions during ADL tasks. 2=Patient will verbalize/demonstrate understanding of assistive devices/ modifications for ADL. 3=Patient will improve strength/tolerance for activity to enable patient to perform ADL's. OT Education/Plan Problem List/Assessment Pt admitted with left hip fracture. Pt to benefit from skilled OT intervention for ADL training, transfers, strengthening, and home safety education to maximize level of independence and allow safe discharge plan. Discharge Recommendations Plan/Recommendations: Continue POC Treatment Plan/Plan of Care Patient would benefit from OT for education, treatment and training to promote independence in ADL's, mobility, safety and/or upper extremity function for ADL' s. Treatment Duration: Dec 19, 2016 # of days/week 5 Visits Per Week: 5 Rehab Potential: Good Time/GCodes Start Time: 10:40 Stop Time: 10:55 Total Time Billed (hr/min): 15 Billed Treatment Time 1 visit, EVL(15minutes) NEELAM RAMEY OT Nov 28, 2016 15:28
[2016-11-28] MEDS: RT-LEVALBUTEROL (XOPENEX) 1.25 MG/3 ML NEB NON-FORMULARY INH SCH ×2 (16:00→19:53)
[2016-11-28] MEDS: FERROUS SULF 325 MG (IRON) TAB PO SCH (20:11)
[2016-11-28] MEDS: ROSUVASTATIN 5 MG (CRESTOR) TABLET PO SCH (20:12)
[2016-11-28] MEDS: MAGNESIUM OXIDE (MAG-OX)400 MG TAB PO SCH (20:12)
[2016-11-28] MEDS: ALPRAZolam 0.25 MG (XANAX) TAB PO SCH (20:12)
[2016-11-28] MEDS: TOLTERODINE LA 4 MG (DETROL) CAP PO SCH (20:12)
[2016-11-29] VITALS: BP 108/57
[2016-11-29] MEDS: fentaNYL INJECTION 100 MCG/2 ML AMP IVP PRN ×3 (01:23→22:17)
[2016-11-29] MEDS: RT-LEVALBUTEROL (XOPENEX) 1.25 MG/3 ML NEB NON-FORMULARY INH SCH ×4 (02:23→21:27)
[2016-11-29] MEDS: NS IV 1000 ML 1,000 ML IV SCH (04:50)
[2016-11-29] MEDS: HYDROcodone/APAP 10 MG/325 MG (LORTAB) TAB PO PRN ×4 (04:50→20:09)
[2016-11-29] MEDS: LACTOBACILLUS Acidoph/Bulgar (LACTINEX/FLORANEX) TAB PO SCH (06:01)
[2016-11-29] MEDS: FUROSEMIDE 40 MG/4 ML INJ (LASIX) IVP SCH ×2 (06:01→15:55)
[2016-11-29 06:27] LABS: INR 1.1 (0.8-1.4); PROTHROMBIN TIME PATIENT 14.3 SEC (12.2-14.7)
[2016-11-29] MEDS: SENNA W/DOCUSATE (SENOKOT S) TABLET PO SCH ×2 (08:00→20:10)
[2016-11-29] MEDS: ALPRAZolam 0.25 MG (XANAX) TAB PO PRN ×2 (08:00→15:54)
[2016-11-29] MEDS: ASPIRIN E.C. 81 MG (ECOTRIN) TAB PO SCH (08:00)
[2016-11-29] MEDS: ENOXAPARIN 30 MG/0.3 ML (LOVENOX) SYR SC SCH (08:01)
[2016-11-29] MEDS: cefTRIAXone INJECTION 1,000 MG in NS (IVPB) 50 ML IV SCH (08:02)
[2016-11-29 08:36] VITALS: BP 119/69
[2016-11-29] MEDS ORDERED: LEVOFLOXACIN 250 MG/D5W 50 ML (PRE-MIX) IV SCH (09:00)
--- NOTE | 2016-11-29 11:08 | Progress Note (SOAP) ---
Subjective Date Seen by Provider: Nov 29, 2016 Time Seen by Provider: 11:03 Subjective/Events-last exam F/U Lt hip fracture S/P ORIF with recurrent UTI, post-op anemia S/P transfusion ; c/o Lt hip pain. Review of Systems General: No Chills, No Night Sweats, No Fatigue, No Malaise, No Appetite, No Other HEENT: No Head Aches, No Visual Changes, No Eye Pain, No Ear Pain, No Dysphasia , No Sinus Congestion, No Post Nasal Drip, No Sore Throat, No Other Pulmonary: No Dyspnea, No Cough, No Pleuritic Chest Pain, No Other Cardiovascular: No: Chest Pain, Edema, Lt Headedness, Orthopnea, Other, Palpitations, Paroxysmal Noc. Dyspnea Gastrointestinal: Constipation Genitourinary: No Dysuria, No Frequency, No Incontinence, No Hematuria, No Retention, No Other Musculoskeletal: leg pain (Lt hip pain) Neurological: Weakness Objective Exam Vital Signs Date Time Temp Pulse Resp B/P (MAP) Pulse Ox O2 Delivery O2 Flow Rate FiO2 11/29/16 08:46 93 Nasal Cannula 3.00 11/29/16 08:36 97.9 84 20 119/69 95 Nasal Cannula 3.00 11/29/16 02:23 96 Nasal Cannula 3.00 11/29/16 00:00 98.6 78 20 108/57 95 Nasal Cannula 3.00 11/28/16 22:58 98.8 81 108/58 11/28/16 20:59 98.9 82 97/50 11/28/16 20:52 Nasal Cannula 3.00 11/28/16 20:44 98.8 77 100/48 11/28/16 20:00 98.7 89 19 117/59 98 Nasal Cannula 3.00 11/28/16 19:55 94 Nasal Cannula 3.00 11/28/16 17:00 98.7 87 18 110/59 Nasal Cannula 2.00 11/28/16 16:50 98.7 94 18 111/59 91 Nasal Cannula 3.00 11/28/16 13:13 98.6 87 18 117/60 93 Nasal Cannula 2.00 11/28/16 12:45 98.0 83 18 115/62 Nasal Cannula 2.00 11/28/16 12:00 98.0 83 20 115/62 90 Nasal Cannula 4.00 I & O 11/29/16 07:00 Intake Total 2470 ml Output Total 1800 ml Balance 670 ml Capillary Refill : Less Than 3 Seconds General Appearance: No Apparent Distress HEENT: PERRL/EOMI Neck: Normal Inspection, Supple Respiratory: Lungs Clear Cardiovascular: Regular Rate, Rhythm, Systolic Murmur, Extra Beats Peripheral Pulses: 2+ Dorsalis Pedis (R), 2+ Left Dors-Pedis (L) Gastrointestinal: normal bowel sounds Extremity: Normal Inspection, No Calf Tenderness, No Pedal Edema Neurologic/Psychiatric: Alert, Oriented x3 Skin: Normal Color, Warm/Dry Results Lab Laboratory Tests 11/28/16 13:45: Lab Scanned Report Transfusion Reaction Form 11/29/16 05:16: Hemoglobin 9.0L, Hematocrit 28L, Prothrombin Time 14.3, INR Comment 1.1 Microbiology 11/26/16 MRSA Screen - Final, Complete MRSA not isolated 11/26/16 Urine Culture - Final, Complete Escherichia Coli Enterococcus Faecalis Assessment/Plan Assessment/Plan Assess & Plan/Chief Complaint 1) Lt Hip Fx-continue PT; monitor H/H; pain control 2) UTI- E. coli and Enterococcus faecalis-continue ABX 3) Acute blood loss anemia-monitor H/H 4) Constipation- continue senna-S Clinical Quality Measures DVT/VTE Risk/Contraindication: Risk Factor Score Per Nursin RFS Level Per Nursing on Admit: 4+=Very High HILARIO MCKEON DO Nov 29, 2016 11:08
--- NOTE | 2016-11-29 12:47 | Physical Therapy Daily Note ---
PT Daily Note-Current Subjective (L) hip and wrist soreness reported on arrival. Pain Numeric Pain Scale: 5-Moderate Pain Location: Left Location Body Site: Wrist Pain Description: Dull Mental Status Patient Orientation: Person, Place, Time, Situation Transfers Functional [place] Measure 0=Not Assessed/NA 4=Minimal Assistance 1=Total Assistance 5=Supervision or Setup 2=Maximal Assistance 6=Modified [place] 3=Moderate Assistance 7=Complete IndependenceIRFPAI Quality Coding Scale 6 Independent with activity with or without an assistive device 5 Patient requires set up or clean up by helper. Patient completes activity by themselves 4 Supervision or touching assist (CGA). [place] provide cues , steadying assist 3 The helper provides less than half the effort to complete the activity 2 The helper provides more than half the effort to complete the activity 1 Dependent. The helper does all the effort to complete an activity 7 Patient refused to complete or attempt activity 9 The patient did not perform the activity before the current illness or injury 88 Not attempted due to Medical conditions or safety concerns Transfers (B, C, W/C) (FIM): 3 Scootin Rollin Supine to/from Sit: 3 Exercises Supine Ex: LE Protocol Supine Reps: 15 Seated Therapy Exercises: LE Protocol Seated Reps: 15 Treatments seated edge of bed 5 min Assessment Pt was able to assist during the supine exercises and transfer. PT Underwriting Intern Goals Underwriting Intern Goals PT Snf Goals Time Frame: Dec 19, 2016 Transfers (B,C,W/C) (FIM): 5 Gait (FIM): 2 Gait distance (FIM): 1=835-51 ft Distance: 50' Gait Level of Assist: 4 Gait Assistive Device: Walker Platform PT Plan Treatment/Plan Treatment Plan: Continue Plan of Care Treatment Plan: Bed Mobility, Education, Functional Activity Christine, Functional Strength, Gait, Safety, Therapeutic Exercise, Transfers Treatment Duration: Dec 19, 2016 Visits Per Week: 11 Time/GCodes Time In: 1015 Time Out: 1040 Total Billed Treatment Time: 25 Total Billed Treatment 1, ex 15', fa 10' SCOTT SINGER PT Nov 29, 2016 12:47
--- NOTE | 2016-11-29 12:53 | Progress Note (SOAP) ---
Subjective Date Seen by Provider: Nov 29, 2016 Time Seen by Provider: 13:59 Subjective/Events-last exam Awake and alert Pain controlled Review of Systems Dressing dry left hip No swelling left hand Objective Exam Vital Signs Date Time Temp Pulse Resp B/P (MAP) Pulse Ox O2 Delivery O2 Flow Rate FiO2 11/29/16 08:46 93 Nasal Cannula 3.00 11/29/16 08:36 97.9 84 20 119/69 95 Nasal Cannula 3.00 11/29/16 02:23 96 Nasal Cannula 3.00 11/29/16 00:00 98.6 78 20 108/57 95 Nasal Cannula 3.00 11/28/16 22:58 98.8 81 108/58 11/28/16 20:59 98.9 82 97/50 11/28/16 20:52 Nasal Cannula 3.00 11/28/16 20:44 98.8 77 100/48 11/28/16 20:00 98.7 89 19 117/59 98 Nasal Cannula 3.00 11/28/16 19:55 94 Nasal Cannula 3.00 11/28/16 17:00 98.7 87 18 110/59 Nasal Cannula 2.00 11/28/16 16:50 98.7 94 18 111/59 91 Nasal Cannula 3.00 11/28/16 13:13 98.6 87 18 117/60 93 Nasal Cannula 2.00 I & O 11/29/16 07:00 Intake Total 2470 ml Output Total 1800 ml Balance 670 ml Capillary Refill : Less Than 3 Seconds General Appearance: No Apparent Distress Extremity: No Pedal Edema (Dressing dry left hip) Results Lab Laboratory Tests 11/28/16 13:45: Lab Scanned Report Transfusion Reaction Form 11/29/16 05:16: Hemoglobin 9.0L, Hematocrit 28L, Prothrombin Time 14.3, INR Comment 1.1 Microbiology 11/26/16 MRSA Screen - Final, Complete MRSA not isolated 11/26/16 Urine Culture - Final, Complete Escherichia Coli Enterococcus Faecalis Assessment/Plan Assessment/Plan Assess & Plan/Chief Complaint Status post left bipolar femoral hemiarthroplasty Final Diagnosis Displaced left femoral neck fracture Blood loss anemia Clinical Quality Measures DVT/VTE Risk/Contraindication: Risk Factor Score Per Nursin RFS Level Per Nursing on Admit: 4+=Very High JO ANN SMILEY DO Nov 29, 2016 12:53 pm
[2016-11-29 15:53] VITALS: BP 127/65
[2016-11-29] MEDS: MAGNESIUM OXIDE (MAG-OX)400 MG TAB PO SCH (20:09)
[2016-11-29] MEDS: ALPRAZolam 0.25 MG (XANAX) TAB PO SCH (20:09)
[2016-11-29] MEDS: FERROUS SULF 325 MG (IRON) TAB PO SCH (20:09)
[2016-11-29] MEDS: TOLTERODINE LA 4 MG (DETROL) CAP PO SCH (20:10)
[2016-11-29] MEDS: ROSUVASTATIN 5 MG (CRESTOR) TABLET PO SCH (20:23)
[2016-11-30] VITALS: BP 122/58
[2016-11-30] MEDS: HYDROcodone/APAP 10 MG/325 MG (LORTAB) TAB PO PRN ×2 (00:30→06:46)
[2016-11-30] MEDS: RT-LEVALBUTEROL (XOPENEX) 1.25 MG/3 ML NEB NON-FORMULARY INH SCH ×4 (02:23→19:54)
[2016-11-30] MEDS: fentaNYL INJECTION 100 MCG/2 ML AMP IVP PRN ×3 (02:44→21:22)
[2016-11-30] MEDS: ALPRAZolam 0.25 MG (XANAX) TAB PO PRN ×2 (05:02→13:23)
[2016-11-30 05:15] LABS: BASOPHILS % (AUTO) 0 % (0-10); EOSINOPHILS # (AUTO) 0.1 10^3/uL (0.0-0.3); EOSINOPHILS % (AUTO) 2 % (0-10); LYMPHOCYTES % (AUTO) 15 % (12-44); MEAN CORPUSCULAR HEMOGLOBIN 28 PG (25-34); MEAN CORPUSCULAR HGB CONC 31 G/DL (32-36); MEAN CORPUSCULAR VOLUME 93 FL (80-99); MEAN PLATELET VOLUME 10.8 FL (7.4-10.4); MONOCYTES # (AUTO) 0.9 X 10^3 (0.0-1.0); MONOCYTES % (AUTO) 14 % (0-12); NEUTROPHILS # (AUTO) 4.6 X 10^3 (1.8-7.8); NEUTROPHILS % (AUTO) 69 % (42-75); PLATELET COUNT 146 10^3/uL (130-400); RED BLOOD COUNT 3.07 10^6/uL (4.35-5.85); WHITE BLOOD COUNT 6.6 10^3/uL (4.3-11.0)
[2016-11-30 05:43] LABS: CALCIUM 7.6 MG/DL (8.5-10.1); CREATININE SERUM 1.02 MG/DL (0.60-1.30)
[2016-11-30] MEDS: LACTOBACILLUS Acidoph/Bulgar (LACTINEX/FLORANEX) TAB PO SCH (06:06)
[2016-11-30] MEDS: FUROSEMIDE 40 MG/4 ML INJ (LASIX) IVP SCH ×2 (06:06→17:40)
[2016-11-30 06:25] LABS: INR 1.1 (0.8-1.4); PROTHROMBIN TIME PATIENT 14.1 SEC (12.2-14.7)
[2016-11-30] MEDS: NS IV 1000 ML 1,000 ML IV SCH (06:46)
[2016-11-30 08:00] VITALS: BP 101/54
[2016-11-30] MEDS: cefTRIAXone INJECTION 1,000 MG in NS (IVPB) 50 ML IV SCH (09:04)
[2016-11-30] MEDS: SENNA W/DOCUSATE (SENOKOT S) TABLET PO SCH ×2 (09:04→20:10)
[2016-11-30] MEDS: ASPIRIN E.C. 81 MG (ECOTRIN) TAB PO SCH (09:05)
--- NOTE | 2016-11-30 11:40 | Progress Note (SOAP) ---
Subjective Date Seen by Provider: Nov 30, 2016 Time Seen by Provider: 11:36 Subjective/Events-last exam F/U Lt hip fracture S/P ORIF with recurrent UTI, post-op anemia--S/P transfusion; c/o Lt hip pain and still no BM. Review of Systems General: Fatigue Gastrointestinal: Constipation Musculoskeletal: leg pain (left hip) Neurological: Weakness Objective Exam Vital Signs Date Time Temp Pulse Resp B/P (MAP) Pulse Ox O2 Delivery O2 Flow Rate FiO2 11/30/16 08:00 98.7 77 20 101/54 96 Nasal Cannula 3.00 11/30/16 08:00 96 Nasal Cannula 3.00 11/30/16 07:09 95 Nasal Cannula 3.00 11/30/16 02:23 96 Nasal Cannula 3.00 11/30/16 00:00 100.3 76 18 122/58 96 Nasal Cannula 3.00 11/29/16 21:27 96 Nasal Cannula 3.00 11/29/16 20:05 Nasal Cannula 3.00 11/29/16 15:53 98.5 84 18 127/65 96 Nasal Cannula 3.00 11/29/16 15:13 97 Nasal Cannula 3.00 I & O 11/30/16 07:00 Intake Total 2294 ml Output Total 2500 ml Balance -206 ml Capillary Refill : Less Than 3 Seconds General Appearance: No Apparent Distress Neck: Supple Respiratory: Crackles (bases), Decreased Breath Sounds (bases) Cardiovascular: Systolic Murmur, Irregularly Irregular Gastrointestinal: normal bowel sounds, non tender, soft Extremity: No Calf Tenderness, Pedal Edema (non pitting with BARAK hose in place and SCDs to feet in place) Neurologic/Psychiatric: Alert, Oriented x3 Skin: Other (left hip wound with no erythema and no drainage) Results Lab Laboratory Tests 11/30/16 04:48: White Blood Count 6.6, Red Blood Count 3.07L, Hemoglobin 8.7L, Hematocrit 29L, Mean Corpuscular Volume 93, Mean Corpuscular Hemoglobin 28, Mean Corpuscular Hemoglobin Concent 31L, Red Cell Distribution Width 17.0H, Platelet Count 146, Mean Platelet Volume 10.8H, Neutrophils (%) (Auto) 69, Lymphocytes (%) (Auto) 15 , Monocytes (%) (Auto) 14H, Eosinophils (%) (Auto) 2, Basophils (%) (Auto) 0, Neutrophils # (Auto) 4.6, Lymphocytes # (Auto) 1.0, Monocytes # (Auto) 0.9, Eosinophils # (Auto) 0.1, Basophils # (Auto) 0.0, Prothrombin Time 14.1, INR Comment 1.1, Sodium Level 139, Potassium Level 4.0, Chloride Level 106, Carbon Dioxide Level 23, Anion Gap 10, Blood Urea Nitrogen 28H, Creatinine 1.02, Estimat Glomerular Filtration Rate 51, BUN/Creatinine Ratio 27, Glucose Level 113H, Calcium Level 7.6L Microbiology 11/26/16 MRSA Screen - Final, Complete MRSA not isolated 11/26/16 Urine Culture - Final, Complete Escherichia Coli Enterococcus Faecalis Assessment/Plan Assessment/Plan Assess & Plan/Chief Complaint 1) Lt Hip Fx-continue PT; monitor H/H; pain not well controlled so will increase hydrocodone dose, Rehab vs SNF 2) UTI- E. coli and Enterococcus faecalis-continue ABX 3) Acute blood loss anemia-H/H dropped some today, will monitor H/H 4) Constipation- increase senna-S and MOM po now x1 Clinical Quality Measures DVT/VTE Risk/Contraindication: Risk Factor Score Per Nursin RFS Level Per Nursing on Admit: 4+=Very High HILARIO MCKEON DO Nov 30, 2016 11:40 am
[2016-11-30] MEDS ORDERED: MILK OF MAGNESIA 400 MG/5 ML 30 ML UDC PO NR (12:05)
[2016-11-30] MEDS ORDERED: SENNA W/DOCUSATE (SENOKOT S) TABLET PO NR (12:05)
[2016-11-30] MEDS: HYDROcodone/APAP 7.5 MG/325 MG (LORTAB, LORCET PLUS) TABLET PO PRN ×2 (12:56→18:29)
[2016-11-30 15:36] VITALS: BP 94/56
[2016-11-30] MEDS: ALPRAZolam 0.25 MG (XANAX) TAB PO SCH (20:10)
[2016-11-30] MEDS: ROSUVASTATIN 5 MG (CRESTOR) TABLET PO SCH (20:10)
[2016-11-30] MEDS: FERROUS SULF 325 MG (IRON) TAB PO SCH (20:10)
[2016-11-30] MEDS: TOLTERODINE LA 4 MG (DETROL) CAP PO SCH (20:10)
[2016-11-30] MEDS: MAGNESIUM OXIDE (MAG-OX)400 MG TAB PO SCH (20:10)
[2016-12-01] VITALS: BP 119/60
[2016-12-01] MEDS: ALPRAZolam 0.25 MG (XANAX) TAB PO PRN ×3 (00:18→15:58)
[2016-12-01] MEDS: RT-LEVALBUTEROL (XOPENEX) 1.25 MG/3 ML NEB NON-FORMULARY INH SCH ×4 (02:26→19:47)
[2016-12-01] MEDS: HYDROcodone/APAP 7.5 MG/325 MG (LORTAB, LORCET PLUS) TABLET PO PRN ×5 (02:35→20:10)
[2016-12-01 05:18] LABS: BASOPHILS % (AUTO) 0 % (0-10); EOSINOPHILS # (AUTO) 0.1 10^3/uL (0.0-0.3); EOSINOPHILS % (AUTO) 2 % (0-10); LYMPHOCYTES # (AUTO) 1.1 X 10^3 (1.0-4.0); LYMPHOCYTES % (AUTO) 15 % (12-44); MEAN CORPUSCULAR HEMOGLOBIN 29 PG (25-34); MEAN CORPUSCULAR HGB CONC 31 G/DL (32-36); MEAN CORPUSCULAR VOLUME 93 FL (80-99); MEAN PLATELET VOLUME 10.5 FL (7.4-10.4); MONOCYTES # (AUTO) 1.4 X 10^3 (0.0-1.0); MONOCYTES % (AUTO) 19 % (0-12); NEUTROPHILS # (AUTO) 4.7 X 10^3 (1.8-7.8); NEUTROPHILS % (AUTO) 64 % (42-75); PLATELET COUNT 172 10^3/uL (130-400); RED CELL DISTRIBUTION WIDTH 16.6 % (10.0-14.5); WHITE BLOOD COUNT 7.3 10^3/uL (4.3-11.0)
[2016-12-01 05:45] LABS: INR 1.1 (0.8-1.4); PROTHROMBIN TIME PATIENT 13.8 SEC (12.2-14.7)
[2016-12-01 05:47] LABS: ANION GAP 11 MMOL/L (5-14); BLOOD UREA NITROGEN 21 MG/DL (7-18); BUN/CREATININE RATIO 24; CALCIUM 8.1 MG/DL (8.5-10.1); CARBON DIOXIDE 24 MMOL/L (21-32); CHLORIDE 105 MMOL/L (98-107); CREATININE SERUM 0.88 MG/DL (0.60-1.30); GFR ESTIMATED > 60; GLUCOSE 107 MG/DL (70-105); MAGNESIUM 2.1 MG/DL (1.8-2.4); POTASSIUM 3.9 MMOL/L (3.6-5.0); SODIUM 140 MMOL/L (135-145)
[2016-12-01 05:49] LABS: BAND NEUTROPHILS 2 %; BASOPHILS % (MANUAL) 0 %; EOSINOPHILS % (MANUAL) 0 %; LYMPHOCYTES % (MANUAL) 11 %; NEUTROPHILS % (MANUAL) 73 %; REACTIVE LYMPHOCYTES 2 %
[2016-12-01 05:50] LABS: ANISOCYTOSIS SLIGHT; HYPOCHROMASIA SLIGHT; POIKILOCYTOSIS SLIGHT; POLYCHROMASIA SLIGHT
[2016-12-01] MEDS: LACTOBACILLUS Acidoph/Bulgar (LACTINEX/FLORANEX) TAB PO SCH (06:08)
[2016-12-01] MEDS: FUROSEMIDE 40 MG/4 ML INJ (LASIX) IVP SCH (06:09)
--- NOTE | 2016-12-01 07:09 | Progress Note (SOAP) ---
Subjective Time Seen by Provider: 07:06 Subjective/Events-last exam POD #5, s/p left hemiarthroplasty, secondary to femoral neck fracture Complains of mild right hip pain at this time. States that she is feeling better , overall Review of Systems General: No Chills Gastrointestinal: No: Nausea Musculoskeletal: leg pain Neurological: Weakness Objective Exam Vital Signs Date Time Temp Pulse Resp B/P (MAP) Pulse Ox O2 Delivery O2 Flow Rate FiO2 12/01/16 02:27 98 Nasal Cannula 3.00 12/01/16 00:00 98.9 92 18 119/60 95 Nasal Cannula 3.00 11/30/16 19:54 96 Nasal Cannula 3.00 11/30/16 19:25 Nasal Cannula 3.00 11/30/16 15:36 98.2 77 20 94/56 95 Nasal Cannula 3.00 11/30/16 15:08 94 Nasal Cannula 3.00 11/30/16 08:00 98.7 77 20 101/54 96 Nasal Cannula 3.00 11/30/16 08:00 96 Nasal Cannula 3.00 11/30/16 07:09 95 Nasal Cannula 3.00 I & O 12/01/16 07:00 Intake Total 2120 ml Output Total 1725 ml Balance 395 ml Capillary Refill : Less Than 3 Seconds General Appearance: No Apparent Distress, WD/WN Respiratory: No Accessory Muscle Use, No Respiratory Distress Gastrointestinal: non tender, soft Extremity: Normal Capillary Refill, Normal Range of Motion, No Calf Tenderness Neurologic/Psychiatric: Alert, Oriented x3, No Motor/Sensory Deficits, Normal Mood/Affect Skin: Other (Dressing CDI) Results Lab Laboratory Tests 12/01/16 04:40: White Blood Count 7.3, Red Blood Count 3.20L, Hemoglobin 9.2L, Hematocrit 30L, Mean Corpuscular Volume 93, Mean Corpuscular Hemoglobin 29, Mean Corpuscular Hemoglobin Concent 31L, Red Cell Distribution Width 16.6H, Platelet Count 172, Mean Platelet Volume 10.5H, Neutrophils (%) (Auto) 64, Lymphocytes (%) (Auto) 15 , Monocytes (%) (Auto) 19H, Eosinophils (%) (Auto) 2, Basophils (%) (Auto) 0, Neutrophils # (Auto) 4.7, Lymphocytes # (Auto) 1.1, Monocytes # (Auto) 1.4H, Eosinophils # (Auto) 0.1, Basophils # (Auto) 0.0, Neutrophils % (Manual) 73, Lymphocytes % (Manual) 11, Monocytes % (Manual) 12, Eosinophils % (Manual) 0, Basophils % (Manual) 0, Band Neutrophils 2, Reactive Lymphocytes 2, Polychromasia SLIGHT, Hypochromasia SLIGHT, Poikilocytosis SLIGHT, Anisocytosis SLIGHT, Macrocytosis SLIGHT, Elliptocytes SLIGHT, Prothrombin Time 13.8, INR Comment 1.1, Sodium Level 140, Potassium Level 3.9, Chloride Level 105, Carbon Dioxide Level 24, Anion Gap 11, Blood Urea Nitrogen 21H, Creatinine 0.88, Estimat Glomerular Filtration Rate > 60, BUN/Creatinine Ratio 24, Glucose Level 107H, Calcium Level 8.1L, Magnesium Level 2.1 Microbiology 11/26/16 MRSA Screen - Final, Complete MRSA not isolated 11/26/16 Urine Culture - Final, Complete Escherichia Coli Enterococcus Faecalis Assessment/Plan Assessment/Plan Assess & Plan/Chief Complaint s/p left hemiarthroplasty, secondary to right hip femoral neck fracture acute post-surgical blood loss anemia discharge planning anticoagulation currently held, secondary to anemia stable from a orthopaedic stance Clinical Quality Measures DVT/VTE Risk/Contraindication: Risk Factor Score Per Nursin RFS Level Per Nursing on Admit: 4+=Very High BRENDAN TERAN Dec 01, 2016 07:09
[2016-12-01 08:00] VITALS: BP 135/60
[2016-12-01] MEDS: cefTRIAXone INJECTION 1,000 MG in NS (IVPB) 50 ML IV SCH (08:25)
[2016-12-01] MEDS: NS IV 1000 ML 1,000 ML IV SCH (08:25)
[2016-12-01] MEDS: SENNA W/DOCUSATE (SENOKOT S) TABLET PO SCH ×2 (08:26→20:10)
[2016-12-01] MEDS: ASPIRIN E.C. 81 MG (ECOTRIN) TAB PO SCH (08:26)
[2016-12-01] MEDS: FUROSEMIDE 40 MG (LASIX) TAB PO SCH (09:08)
--- NOTE | 2016-12-01 09:22 | Progress Note (SOAP) ---
Subjective Date Seen by Provider: Dec 01, 2016 Time Seen by Provider: 08:35 Subjective/Events-last exam PT REPORTS THAT HER PAIN HAS BEEN MUCH BETTER CONTROLLED - SHE REPORTS THAT SHE IS FEELING BETTER. HER FAMILY WAS WORRIED ABOUT PAIN IN HER LEFT CHEST WALL YESTERDAY- IT RESOLVED WITHOUT FURTHER COMPLAINTS ON PATIENT'S PART. Review of Systems General: No Chills HEENT: No Head Aches Pulmonary: No Dyspnea, Cough Cardiovascular: No: Chest Pain Gastrointestinal: No: Abdominal Pain, Nausea Genitourinary: Other (DOMINGO IN PLACE) Neurological: Weakness Objective Exam Vital Signs Date Time Temp Pulse Resp B/P (MAP) Pulse Ox O2 Delivery O2 Flow Rate FiO2 12/01/16 02:27 98 Nasal Cannula 3.00 12/01/16 00:00 98.9 92 18 119/60 95 Nasal Cannula 3.00 11/30/16 19:54 96 Nasal Cannula 3.00 11/30/16 19:25 Nasal Cannula 3.00 11/30/16 15:36 98.2 77 20 94/56 95 Nasal Cannula 3.00 11/30/16 15:08 94 Nasal Cannula 3.00 I & O 12/01/16 07:00 Intake Total 2120 ml Output Total 1725 ml Balance 395 ml Capillary Refill : Less Than 3 Seconds General Appearance: No Apparent Distress, WD/WN HEENT: PERRL/EOMI Neck: Full Range of Motion Respiratory: Chest Non Tender, Decreased Breath Sounds (IN BASES BILATERALLY) Cardiovascular: Regular Rate, Rhythm Gastrointestinal: normal bowel sounds, non tender, soft, no organomegaly, no pulsatile mass Extremity: Normal Capillary Refill, No Pedal Edema Neurologic/Psychiatric: Alert, Oriented x3, No Motor/Sensory Deficits, Normal Mood/Affect Skin: Warm/Dry Lymphatic: No Adenopathy Results Lab Laboratory Tests 12/01/16 04:40: White Blood Count 7.3, Red Blood Count 3.20L, Hemoglobin 9.2L, Hematocrit 30L, Mean Corpuscular Volume 93, Mean Corpuscular Hemoglobin 29, Mean Corpuscular Hemoglobin Concent 31L, Red Cell Distribution Width 16.6H, Platelet Count 172, Mean Platelet Volume 10.5H, Neutrophils (%) (Auto) 64, Lymphocytes (%) (Auto) 15 , Monocytes (%) (Auto) 19H, Eosinophils (%) (Auto) 2, Basophils (%) (Auto) 0, Neutrophils # (Auto) 4.7, Lymphocytes # (Auto) 1.1, Monocytes # (Auto) 1.4H, Eosinophils # (Auto) 0.1, Basophils # (Auto) 0.0, Neutrophils % (Manual) 73, Lymphocytes % (Manual) 11, Monocytes % (Manual) 12, Eosinophils % (Manual) 0, Basophils % (Manual) 0, Band Neutrophils 2, Reactive Lymphocytes 2, Polychromasia SLIGHT, Hypochromasia SLIGHT, Poikilocytosis SLIGHT, Anisocytosis SLIGHT, Macrocytosis SLIGHT, Elliptocytes SLIGHT, Prothrombin Time 13.8, INR Comment 1.1, Sodium Level 140, Potassium Level 3.9, Chloride Level 105, Carbon Dioxide Level 24, Anion Gap 11, Blood Urea Nitrogen 21H, Creatinine 0.88, Estimat Glomerular Filtration Rate > 60, BUN/Creatinine Ratio 24, Glucose Level 107H, Calcium Level 8.1L, Magnesium Level 2.1 Microbiology 11/26/16 MRSA Screen - Final, Complete MRSA not isolated 11/26/16 Urine Culture - Final, Complete Escherichia Coli Enterococcus Faecalis Assessment/Plan Assessment/Plan Assess & Plan/Chief Complaint LEFT HIP FRACTURE URINARY TRACT INFECTION CHRONIC ANEMIA WITH POST OP BLOOD LOSS DYSPNEA CHRONIC PAIN SYNDROME ANXIETY LEFT HIP FRACTURE - PHYSICAL THERAPY , WILL NEED TO SWING PATIENT FOR IV ANTIBIOTICS. URINARY TRACT INFECTION - ANTIBIOTICS CHANGED- PATIENT ON LEVAQUIN AND ROCEPHIN. CHRONIC ANEMIA WITH POST OP BLOOD LOSS - HGB STABLE. DYSPNEA- IMPROVED CHRONIC PAIN SYNDROME- IV PAIN MEDICATION, ORAL PAIN MEDICATION PRN. ANXIETY - RESTARTED HOME ALPRAZOLAM FOR PRN USE. Clinical Quality Measures DVT/VTE Risk/Contraindication: Risk Factor Score Per Nursin RFS Level Per Nursing on Admit: 4+=Very High DONTAE KERN MD Dec 01, 2016 09:22
[2016-12-01] MEDS ORDERED: METHYLNALTREXONE 12 MG/0.6 ML (RELISTOR) VIAL SQ NR (09:30)
[2016-12-01] MEDS: LEVOFLOXACIN 250 MG TAB (LEVAQUIN) PO SCH (11:22)
--- NOTE | 2016-12-01 11:22 | Physical Therapy Daily Note ---
PT Daily Note-Current Subjective Patient agrees to PT. Patient rates left hip pain 8/10. Pain Numeric Pain Scale: 8 Location: Left Location Body Site: Hip Pain Description: Acute Comment: meds had been issued prior to PT Mental Status Patient Orientation: Normal For Age Attachments: Oxygen, Gregory Catheter, IV Transfers Functional [place] Measure 0=Not Assessed/NA 4=Minimal Assistance 1=Total Assistance 5=Supervision or Setup 2=Maximal Assistance 6=Modified [place] 3=Moderate Assistance 7=Complete IndependenceIRFPAI Quality Coding Scale 6 Independent with activity with or without an assistive device 5 Patient requires set up or clean up by helper. Patient completes activity by themselves 4 Supervision or touching assist (CGA). [place] provide cues , steadying assist 3 The helper provides less than half the effort to complete the activity 2 The helper provides more than half the effort to complete the activity 1 Dependent. The helper does all the effort to complete an activity 7 Patient refused to complete or attempt activity 9 The patient did not perform the activity before the current illness or injury 88 Not attempted due to Medical conditions or safety concerns Transfers (B, C, W/C) (FIM): 2 Scootin Rollin Supine to/from Sit: 2 Sit to/from Stand: 2 Bed to/from Chair: 2 Patient performed sit to stand transfers x 3 sets with max assist. Weight Bearing Weight Bearing Restriction: Full Weight Bearing Location Restriction: L LE Gait Training Gait (FIM): 1 Distance (FIM): 1=up to 49 ft Distance: 5' Gait Level of Assist: 2 Gait Persons Needed: 1 Gait Assistive Device: None assist with use of gait belt and patient holding PT's arms. patient was able to advance bilateral LE slightly with PT weight shifting patient Exercises Supine Ex: Ankle pumps, Quad Set, Heel Slides Supine Reps: 10 Seated Therapy Exercises: Ankle pumps, Long arc quads Seated Reps: 15 Assessment Patient fatigues with minimal activity. Patient is progressing slowly with treatment plan. PT to increase activity as tolerated by patient. PT Supervisor Printing Shop Goals Senior Living Goals PT Senior Living Goals Time Frame: Dec 19, 2016 Transfers (B,C,W/C) (FIM): 5 Gait (FIM): 2 Gait distance (FIM): 4=685-48 ft Distance: 50' Gait Level of Assist: 4 Gait Assistive Device: Walker Platform PT Plan Treatment/Plan Treatment Plan: Continue Plan of Care Treatment Plan: Bed Mobility, Education, Functional Activity Christine, Functional Strength, Gait, Safety, Therapeutic Exercise, Transfers Treatment Duration: Dec 19, 2016 Visits Per Week: 11 Time/GCodes Time In: 935 Time Out: 1000 Total Billed Treatment Time: 25 Total Billed Treatment 1 visit EX 10 min FA 15 min SARA ENGLISH PT Dec 01, 2016 11:22
--- NOTE | 2016-12-01 13:46 | Physical Therapy Daily Note ---
PT Daily Note-Current Subjective Patient is still up in recliner. Patient states she is very fatigued and wishes to return to bed. Pain Numeric Pain Scale: 8 Location: Left Location Body Site: Hip Pain Description: Acute Mental Status Patient Orientation: Normal For Age Attachments: Oxygen, Gregory Catheter, IV Transfers Functional [place] Measure 0=Not Assessed/NA 4=Minimal Assistance 1=Total Assistance 5=Supervision or Setup 2=Maximal Assistance 6=Modified [place] 3=Moderate Assistance 7=Complete IndependenceIRFPAI Quality Coding Scale 6 Independent with activity with or without an assistive device 5 Patient requires set up or clean up by helper. Patient completes activity by themselves 4 Supervision or touching assist (CGA). [place] provide cues , steadying assist 3 The helper provides less than half the effort to complete the activity 2 The helper provides more than half the effort to complete the activity 1 Dependent. The helper does all the effort to complete an activity 7 Patient refused to complete or attempt activity 9 The patient did not perform the activity before the current illness or injury 88 Not attempted due to Medical conditions or safety concerns Transfers (B, C, W/C) (FIM): 1 Scootin Rollin Supine to/from Sit: 1 Sit to/from Stand: 1 Bed to/from Chair: 1 dependent assist with sit to stand x 3 sets with SPT chair to bed with gait belt in place Skilled verbal instruction with bilateral LE placement to stand erect and to take steps to turn to bed Patient repositioned to sidelying left with pillows behind back and between bilateral LE's Weight Bearing Weight Bearing Restriction: Full Weight Bearing Location Restriction: L LE Assessment Due to extreme fatigue, patient unable to perform AAROM this p.m. Education with patient and caregiver on POC and expectations on progression with activities and both patient and caregiver agree to begin ambulating tomorrow and to begin the steady increase in activity to ensure safe return to home with family and caregivers. PT Mash Filter Operator Goals Mash Filter Operator Goals PT [facility] Goals Time Frame: Dec 19, 2016 Transfers (B,C,W/C) (FIM): 5 Gait (FIM): 2 Gait distance (FIM): 5=349-99 ft Distance: 50' Gait Level of Assist: 4 Gait Assistive Device: Walker Platform PT Plan Treatment/Plan Treatment Plan: Continue Plan of Care Treatment Plan: Bed Mobility, Education, Functional Activity Christine, Functional Strength, Gait, Safety, Therapeutic Exercise, Transfers Treatment Duration: Dec 19, 2016 Visits Per Week: 11 Time/GCodes Time In: 1310 Time Out: 1325 Total Billed Treatment Time: 15 Total Billed Treatment 1 visit FA 15 min SARA ENGLISH PT Dec 01, 2016 13:46
--- NOTE | 2016-12-01 15:27 | Occupational Ther Daily Note ---
OT Current Status-Daily Note Subjective Pt alert, sitting in recliner. Visitor present in room. Pt agreed to therapy. Mental Status/Objective Patient Orientation: Person, Place, Time, Situation Functional [place] Measure 0=Not Assessed/NA 4=Minimal Assistance 1=Total Assistance 5=Supervision or Setup 2=Maximal Assistance 6=Modified [place] 3=Moderate Assistance 7=Complete [place] Attachments: Gregory Catheter, IV, Oxygen ADL-Treatment Pt required set up for sponge bath. Pt was able to complete upper body bathing. Pt declined to stand to complete toni care and cleanse buttocks. Assist for toni care and LE bathing/dressing. Pt is dependent for lower body bathing and dressing. Pt required increased time to complete task due to pain. After therapy, pt sitting in recliner with visitor present. Call light/phone in reach. All needs met in room. OT Short Term Goals Short Term Goals 1=Demonstrate adherence to instructed precautions during ADL tasks. 2=Patient will verbalize/demonstrate understanding of assistive devices/ modifications for ADL. 3=Patient will improve strength/tolerance for activity to enable patient to perform ADL's. OT Hand Woven Carpet And Rug Mender Goals Hand Woven Carpet And Rug Mender Goals Time Frame: Dec 19, 2016 Eating (FIM): 5 Grooming(FIM): 5 Upper Body Dressing(FIM): 4 Toileting(FIM): 4 Toilet/Commode Transfer(FIM): 4 Additional Goals: 1-Demonstrate ADL Tasks, 2-Verbalize Understanding, 3- ImproveStrength/Christine 1=Demonstrate adherence to instructed precautions during ADL tasks. 2=Patient will verbalize/demonstrate understanding of assistive devices/ modifications for ADL. 3=Patient will improve strength/tolerance for activity to enable patient to perform ADL's. OT Education/Plan Problem List/Assessment Pt admitted with left hip fracture. Pt to benefit from skilled OT intervention for ADL training, transfers, strengthening, and home safety education to maximize level of independence and allow safe discharge plan. Discharge Recommendations Plan/Recommendations: Continue POC Treatment Plan/Plan of Care Patient would benefit from OT for education, treatment and training to promote independence in ADL's, mobility, safety and/or upper extremity function for ADL' s. Treatment Duration: Dec 19, 2016 Visits Per Week: 5 Rehab Potential: Good Time/GCodes Start Time: 10:10 Stop Time: 10:45 Total Time Billed (hr/min): 35 Billed Treatment Time 1 visit-ADL 3 (35 min) SKY MARTINEZ Dec 01, 2016 15:27
[2016-12-01 16:41] VITALS: BP 129/55
[2016-12-01] MEDS: ROSUVASTATIN 5 MG (CRESTOR) TABLET PO SCH (20:10)
[2016-12-01] MEDS: TOLTERODINE LA 4 MG (DETROL) CAP PO SCH (20:10)
[2016-12-01] MEDS: FERROUS SULF 325 MG (IRON) TAB PO SCH (20:11)
[2016-12-01] MEDS: MAGNESIUM OXIDE (MAG-OX)400 MG TAB PO SCH (20:11)
[2016-12-01] MEDS: ALPRAZolam 0.25 MG (XANAX) TAB PO SCH (20:11)
[2016-12-01] MEDS: ESTROGENS CONJ. CREAM 30 GM (PREMARIN) TUBE VG SCH (21:00)
[2016-12-02] VITALS: BP 129/60
[2016-12-02] MEDS: HYDROcodone/APAP 7.5 MG/325 MG (LORTAB, LORCET PLUS) TABLET PO PRN ×4 (02:21→17:54)
[2016-12-02] MEDS: RT-LEVALBUTEROL (XOPENEX) 1.25 MG/3 ML NEB NON-FORMULARY INH SCH ×4 (02:36→21:58)
[2016-12-02 05:58] LABS: INR 1.1 (0.8-1.4)
[2016-12-02] MEDS: ALPRAZolam 0.25 MG (XANAX) TAB PO PRN (05:59)
[2016-12-02] MEDS: LACTOBACILLUS Acidoph/Bulgar (LACTINEX/FLORANEX) TAB PO SCH (06:00)
--- NOTE | 2016-12-02 07:00 | Progress Note (SOAP) ---
Subjective Time Seen by Provider: 06:59 Subjective/Events-last exam s/p left hip hemiarthroplasty secondary to femoral neck fracture No complaints Review of Systems General: No Chills Musculoskeletal: No: back pain, leg pain Neurological: No: Weakness Objective Exam Vital Signs Date Time Temp Pulse Resp B/P (MAP) Pulse Ox O2 Delivery O2 Flow Rate FiO2 12/02/16 02:37 93 Nasal Cannula 2.00 12/02/16 00:00 97.8 93 22 129/60 96 Nasal Cannula 3.00 12/01/16 20:00 Nasal Cannula 3.00 12/01/16 19:48 95 Nasal Cannula 2.00 12/01/16 16:41 96.3 75 20 129/55 96 Nasal Cannula 2.00 12/01/16 16:21 96 12/01/16 15:34 96 Nasal Cannula 3.00 12/01/16 11:27 93 Nasal Cannula 3.00 12/01/16 08:00 97.0 82 24 135/60 97 Nasal Cannula 3.00 I & O 12/02/16 07:00 Intake Total 1971 ml Output Total 1000 ml Balance 971 ml Capillary Refill : Less Than 3 Seconds General Appearance: No Apparent Distress, WD/WN Respiratory: No Accessory Muscle Use, No Respiratory Distress Extremity: Non Tender, No Calf Tenderness Neurologic/Psychiatric: Alert, Oriented x3, No Motor/Sensory Deficits, Normal Mood/Affect, cable 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-XII Norm as Tested Skin: Normal Color, Other (Dressing CDI) Results Lab Laboratory Tests 12/01/16 12:30: Lab Scanned Report Transfusion Reaction Form 12/02/16 04:50: Prothrombin Time 14.0, INR Comment 1.1 Microbiology 11/26/16 MRSA Screen - Final, Complete MRSA not isolated 11/26/16 Urine Culture - Final, Complete Escherichia Coli Enterococcus Faecalis Assessment/Plan Assessment/Plan Assess & Plan/Chief Complaint s/p left hemiarthroplasty, secondary to right hip femoral neck fracture acute post-surgical blood loss anemia Clinical Quality Measures DVT/VTE Risk/Contraindication: Risk Factor Score Per Nursin RFS Level Per Nursing on Admit: 4+=Very High BRENDAN TERAN Dec 02, 2016 07:00
[2016-12-02 08:00] VITALS: BP 101/77
--- NOTE | 2016-12-02 08:42 | Progress Note (SOAP) ---
Subjective Date Seen by Provider: Dec 02, 2016 Time Seen by Provider: 08:50 Subjective/Events-last exam pt reports that she is feeling better today, she still has not had a bowel movement. she denies chest pain, has persistent shortness of breath. she has pain in her left arm and hip, but it is improved from yesterday. per staff, she is a two person assist with activity, movement. Review of Systems General: Fatigue HEENT: No Head Aches, Visual Changes (chronic) Pulmonary: Dyspnea, No Cough Cardiovascular: No: Chest Pain Gastrointestinal: Constipation, No: Abdominal Pain, Nausea Genitourinary: Other (bustillos in place) Neurological: Weakness, No: Confusion Objective Exam Vital Signs Date Time Temp Pulse Resp B/P (MAP) Pulse Ox O2 Delivery O2 Flow Rate FiO2 12/02/16 02:37 93 Nasal Cannula 2.00 12/02/16 00:00 97.8 93 22 129/60 96 Nasal Cannula 3.00 12/01/16 20:00 Nasal Cannula 3.00 12/01/16 19:48 95 Nasal Cannula 2.00 12/01/16 16:41 96.3 75 20 129/55 96 Nasal Cannula 2.00 12/01/16 16:21 96 12/01/16 15:34 96 Nasal Cannula 3.00 12/01/16 11:27 93 Nasal Cannula 3.00 I & O 12/02/16 07:00 Intake Total 2371 ml Output Total 1300 ml Balance 1071 ml Capillary Refill : Less Than 3 Seconds General Appearance: No Apparent Distress, WD/WN HEENT: PERRL/EOMI, Pharynx Normal Neck: Full Range of Motion, Supple Respiratory: Chest Non Tender, Crackles, Decreased Breath Sounds Cardiovascular: Regular Rate, Rhythm Gastrointestinal: normal bowel sounds, non tender, soft, no organomegaly, no pulsatile mass Extremity: No Pedal Edema Neurologic/Psychiatric: Alert, Oriented x3, No Motor/Sensory Deficits Skin: Warm/Dry Lymphatic: No Adenopathy Results Lab Laboratory Tests 12/01/16 12:30: Lab Scanned Report Transfusion Reaction Form 12/02/16 04:50: Prothrombin Time 14.0, INR Comment 1.1 Microbiology 11/26/16 MRSA Screen - Final, Complete MRSA not isolated 11/26/16 Urine Culture - Final, Complete Escherichia Coli Enterococcus Faecalis Assessment/Plan Assessment/Plan Assess & Plan/Chief Complaint LEFT HIP FRACTURE URINARY TRACT INFECTION CHRONIC ANEMIA WITH POST OP BLOOD LOSS DYSPNEA CHRONIC PAIN SYNDROME ANXIETY LEFT HIP FRACTURE - PHYSICAL THERAPY -PT A TWO PERSON ASSIST - WILL NEED TO GO TO LONG TERM FOR THERAPY SHE IS NOT MAKING MUCH FORWARD PROGRESS WITH PHYSICAL THERAPY. URINARY TRACT INFECTION - ANTIBIOTICS CHANGED- PATIENT ON LEVAQUIN AND ROCEPHIN. CHRONIC ANEMIA WITH POST OP BLOOD LOSS - HGB STABLE. DYSPNEA- IMPROVED CHRONIC PAIN SYNDROME- IV PAIN MEDICATION, ORAL PAIN MEDICATION PRN. ANXIETY - RESTARTED HOME ALPRAZOLAM FOR PRN USE. Clinical Quality Measures DVT/VTE Risk/Contraindication: Risk Factor Score Per Nursin RFS Level Per Nursing on Admit: 4+=Very High DONTAE KERN MD Dec 02, 2016 08:42
[2016-12-02] MEDS: cefTRIAXone INJECTION 1,000 MG in NS (IVPB) 50 ML IV SCH (08:52)
[2016-12-02] MEDS: FUROSEMIDE 40 MG (LASIX) TAB PO SCH (08:52)
[2016-12-02] MEDS: ASPIRIN E.C. 81 MG (ECOTRIN) TAB PO SCH (08:52)
[2016-12-02] MEDS: SENNA W/DOCUSATE (SENOKOT S) TABLET PO SCH ×2 (08:52→20:03)
[2016-12-02] MEDS ORDERED: METHYLNALTREXONE 12 MG/0.6 ML (RELISTOR) VIAL SQ NR (10:13)
[2016-12-02] MEDS: LEVOFLOXACIN 250 MG TAB (LEVAQUIN) PO SCH (10:59)
--- NOTE | 2016-12-02 11:29 | Physical Therapy Daily Note ---
PT Daily Note-Current Subjective Patient and family agree to PT. Pain Numeric Pain Scale: 5-Moderate Pain Location: Left Location Body Site: Hip Pain Description: Acute Mental Status Patient Orientation: Normal For Age Attachments: Oxygen, Gregory Catheter Transfers Functional [place] Measure 0=Not Assessed/NA 4=Minimal Assistance 1=Total Assistance 5=Supervision or Setup 2=Maximal Assistance 6=Modified [place] 3=Moderate Assistance 7=Complete IndependenceIRFPAI Quality Coding Scale 6 Independent with activity with or without an assistive device 5 Patient requires set up or clean up by helper. Patient completes activity by themselves 4 Supervision or touching assist (CGA). [place] provide cues , steadying assist 3 The helper provides less than half the effort to complete the activity 2 The helper provides more than half the effort to complete the activity 1 Dependent. The helper does all the effort to complete an activity 7 Patient refused to complete or attempt activity 9 The patient did not perform the activity before the current illness or injury 88 Not attempted due to Medical conditions or safety concerns Transfers (B, C, W/C) (FIM): 2 Scootin Rollin Supine to/from Sit: 2 Sit to/from Stand: 2 Bed to/from Chair: 2 Patient sat EOB x 5 min independently; max assist with patient assisting with moving bilateral LE's Weight Bearing Weight Bearing Restriction: Weight Bearing/Tolerated Location Restriction: L LE Gait Training Gait (FIM): 1 Distance (FIM): 1=up to 49 ft Distance: 8' Gait Level of Assist: 2 Gait Persons Needed: 1 Gait Assistive Device: Walker Platform slightly retropulsive initially; max assist to stand erect, step to gait sequence Exercises Supine Ex: Ankle pumps, Quad Set, Heel Slides, Hip abd/add Supine Reps: 10 Seated Therapy Exercises: Long arc quads Seated Reps: 25 (x 2 set) Assessment Exercise, transfer training and gait training to address functional strength and mobility. Patient improving slowly, however, improving. Plan for patient to transfer to correction this week for continued therapies. PT Fagot Heater Helper Goals Intermediate Goals PT Fagot Heater Helper Goals Time Frame: Dec 19, 2016 Transfers (B,C,W/C) (FIM): 5 Gait (FIM): 2 Gait distance (FIM): 0=934-72 ft Distance: 50' Gait Level of Assist: 4 Gait Assistive Device: Walker Platform PT Plan Treatment/Plan Treatment Plan: Continue Plan of Care Treatment Plan: Bed Mobility, Education, Functional Activity Christine, Functional Strength, Gait, Safety, Therapeutic Exercise, Transfers Treatment Duration: Dec 19, 2016 Visits Per Week: 11 Safety Risks/Education Patient Education: Gait Training Teaching Recipient: Patient Teaching Methods: Demonstration, Discussion Response to Teaching: Reinforcement Needed Discharge Recommendations Therapy D/C Recommendations: Detention (TCU/NH) Time/GCodes Time In: 1020 Time Out: 1043 Total Billed Treatment Time: 23 Total Billed Treatment 1 visit GT 10 min EX 15 min SARA ENGLISH PT Dec 02, 2016 11:29
--- NOTE | 2016-12-02 11:47 | Occupational Ther Daily Note ---
OT Current Status-Daily Note Subjective Pt seen in room, up in recliner, agreeable to OT. No pain mentioned. Appearance Drowsy, kept falling asleep during exercises. Mental Status/Objective Functional [place] Measure 0=Not Assessed/NA 4=Minimal Assistance 1=Total Assistance 5=Supervision or Setup 2=Maximal Assistance 6=Modified [place] 3=Moderate Assistance 7=Complete [place] Other Treatment Pt has L forearm and wrist in plaster cast.Pt did 10 reps bilat AROM, with education on each exercise, no additional weight. Pt needed skilled cues to do exercises correctly. Pt was not able to track repetitions. Did not do forearm on L side due to cast. Pt has edema in fingers L hand - pt education on decreasing edema by keeping L arm elevated (which she was doing) and by AROM. On L did gross finger flexion as well as intrinsic exercises to maintain small muscles in hand which can be affected by edema. pt needed physical assistance to do these exercises. pt is blind and required tactile as well as verbal cues and direction. Pt left up in chair, both arms elevated for comfort, call light present. Pt declined water. O2 in place throughout tx. OT Short Term Goals Short Term Goals 1=Demonstrate adherence to instructed precautions during ADL tasks. 2=Patient will verbalize/demonstrate understanding of assistive devices/ modifications for ADL. 3=Patient will improve strength/tolerance for activity to enable patient to perform ADL's. OT Intermediate Goals Intermediate Goals Time Frame: Dec 19, 2016 Eating (FIM): 5 Grooming(FIM): 5 Upper Body Dressing(FIM): 4 Toileting(FIM): 4 Toilet/Commode Transfer(FIM): 4 Additional Goals: 1-Demonstrate ADL Tasks, 2-Verbalize Understanding, 3- ImproveStrength/Christine 1=Demonstrate adherence to instructed precautions during ADL tasks. 2=Patient will verbalize/demonstrate understanding of assistive devices/ modifications for ADL. 3=Patient will improve strength/tolerance for activity to enable patient to perform ADL's. OT Education/Plan Problem List/Assessment Pt admitted with left hip fracture. Pt to benefit from skilled OT intervention for ADL training, transfers, strengthening, and home safety education to maximize level of independence and allow safe discharge plan. Discharge Recommendations Plan/Recommendations: Continue POC Treatment Plan/Plan of Care Patient would benefit from OT for education, treatment and training to promote independence in ADL's, mobility, safety and/or upper extremity function for ADL' s. Treatment Duration: Dec 19, 2016 Visits Per Week: 5 Rehab Potential: Good Time/GCodes Start Time: 11:15 Stop Time: 11:30 Total Time Billed (hr/min): 15 Billed Treatment Time visit, 15 minutes exercise MAURICIO VARMA OT Dec 02, 2016 11:47
[2016-12-02] MEDS ORDERED: FUROSEMIDE 40 MG/4 ML INJ (LASIX) IVP NR (12:00)
--- NOTE | 2016-12-02 13:31 | Physical Therapy Daily Note ---
PT Daily Note-Current Subjective Patient still up in recliner, very fatigued, requested to return to bed. Pain Numeric Pain Scale: 8 Location: Left Location Body Site: Hip Pain Description: Acute Mental Status Patient Orientation: Normal For Age Attachments: Oxygen, Gregory Catheter Transfers Functional [place] Measure 0=Not Assessed/NA 4=Minimal Assistance 1=Total Assistance 5=Supervision or Setup 2=Maximal Assistance 6=Modified [place] 3=Moderate Assistance 7=Complete IndependenceIRFPAI Quality Coding Scale 6 Independent with activity with or without an assistive device 5 Patient requires set up or clean up by helper. Patient completes activity by themselves 4 Supervision or touching assist (CGA). [place] provide cues , steadying assist 3 The helper provides less than half the effort to complete the activity 2 The helper provides more than half the effort to complete the activity 1 Dependent. The helper does all the effort to complete an activity 7 Patient refused to complete or attempt activity 9 The patient did not perform the activity before the current illness or injury 88 Not attempted due to Medical conditions or safety concerns Transfers (B, C, W/C) (FIM): 1 Scootin Rollin Supine to/from Sit: 1 Sit to/from Stand: 1 Bed to/from Chair: 1 dependent assist with sit to stand and sit to sidelying left with pillows behind back and between LE's PT encouraged patient to actively move bilateral LE to assist with bed mobility activity Assessment Patient extremely lethargic and required time to complete tasks. Bed mobility activity with dependent assist with patient attempting to assist with bilateral LE, however, patient fatigued. Call light in hand and needs met. PT Internet Project Manager Goals Internet Project Manager Goals PT Jail Goals Time Frame: Dec 19, 2016 Transfers (B,C,W/C) (FIM): 5 Gait (FIM): 2 Gait distance (FIM): 6=510-30 ft Distance: 50' Gait Level of Assist: 4 Gait Assistive Device: Walker Platform PT Plan Treatment/Plan Treatment Plan: Continue Plan of Care Treatment Plan: Bed Mobility, Education, Functional Activity Christine, Functional Strength, Gait, Safety, Therapeutic Exercise, Transfers Treatment Duration: Dec 19, 2016 Visits Per Week: 11 Time/GCodes Time In: 1150 Time Out: 1205 Total Billed Treatment Time: 15 Total Billed Treatment 1 visit FA 15 min SARA ENGLISH PT Dec 02, 2016 13:31
[2016-12-02 16:00] VITALS: BP 117/80
[2016-12-02] MEDS: MAGNESIUM OXIDE (MAG-OX)400 MG TAB PO SCH (20:03)
[2016-12-02] MEDS: FERROUS SULF 325 MG (IRON) TAB PO SCH (20:03)
[2016-12-02] MEDS: TOLTERODINE LA 4 MG (DETROL) CAP PO SCH (20:03)
[2016-12-02] MEDS: ALPRAZolam 0.25 MG (XANAX) TAB PO SCH (20:04)
[2016-12-02] MEDS: ROSUVASTATIN 5 MG (CRESTOR) TABLET PO SCH (20:04)
[2016-12-03 00:36] VITALS: BP 126/60
[2016-12-03] MEDS: HYDROcodone/APAP 7.5 MG/325 MG (LORTAB, LORCET PLUS) TABLET PO PRN ×4 (04:24→20:41)
[2016-12-03 05:08] LABS: MEAN PLATELET VOLUME 10.3 FL (7.4-10.4); RED BLOOD COUNT 3.19 10^6/uL (4.35-5.85); RED CELL DISTRIBUTION WIDTH 15.7 % (10.0-14.5); WHITE BLOOD COUNT 6.7 10^3/uL (4.3-11.0)
[2016-12-03 05:29] LABS: ALANINE AMINOTRANSFERASE 13 U/L (0-55); ALBUMIN 2.7 GM/DL (3.2-4.5); ANION GAP 10 MMOL/L (5-14); ASPARTATE AMINO TRANSFERASE 17 U/L (5-34); BILIRUBIN,TOTAL 0.3 MG/DL (0.1-1.0); BLOOD UREA NITROGEN 19 MG/DL (7-18); BUN/CREATININE RATIO 23 (0-20); CALCIUM 8.8 MG/DL (8.5-10.1); CARBON DIOXIDE 27 MMOL/L (21-32); CHLORIDE 103 MMOL/L (98-107); CREATININE SERUM 0.83 MG/DL (0.60-1.30); GFR ESTIMATED > 60; GLUCOSE 100 MG/DL (70-105); SODIUM 140 MMOL/L (135-145); TOTAL PROTEIN 5.9 GM/DL (6.4-8.2)
[2016-12-03] MEDS: LACTOBACILLUS Acidoph/Bulgar (LACTINEX/FLORANEX) TAB PO SCH (06:10)
[2016-12-03] MEDS: SENNA W/DOCUSATE (SENOKOT S) TABLET PO SCH ×2 (07:54→20:41)
[2016-12-03] MEDS: ASPIRIN E.C. 81 MG (ECOTRIN) TAB PO SCH (07:55)
[2016-12-03] MEDS: FUROSEMIDE 40 MG (LASIX) TAB PO SCH (07:55)
[2016-12-03] MEDS: cefTRIAXone INJECTION 1,000 MG in NS (IVPB) 50 ML IV SCH (07:55)
[2016-12-03 08:00] VITALS: BP 126/60
--- NOTE | 2016-12-03 08:13 | Progress Note (SOAP) ---
Subjective Date Seen by Provider: Dec 03, 2016 Time Seen by Provider: 08:15 Objective Exam Vital Signs Date Time Temp Pulse Resp B/P (MAP) Pulse Ox O2 Delivery O2 Flow Rate FiO2 12/03/16 00:36 98.0 85 18 126/60 94 Nasal Cannula 3.00 12/02/16 21:58 Nasal Cannula 2.00 12/02/16 20:00 Nasal Cannula 3.00 12/02/16 16:00 98.4 130 16 117/80 98 Nasal Cannula 3.00 12/02/16 14:52 Nasal Cannula 2.00 12/02/16 09:51 96 Nasal Cannula 2.00 12/02/16 08:30 Nasal Cannula 3.00 I & O 12/03/16 07:00 Intake Total 2120 ml Output Total 2300 ml Balance -180 ml Capillary Refill : Less Than 3 Seconds Results Lab Laboratory Tests 12/03/16 04:29: White Blood Count 6.7, Red Blood Count 3.19L, Hemoglobin 9.0L, Hematocrit 30L, Mean Corpuscular Volume 94, Mean Corpuscular Hemoglobin 28, Mean Corpuscular Hemoglobin Concent 30L, Red Cell Distribution Width 15.7H, Platelet Count 213, Mean Platelet Volume 10.3, Sodium Level 140, Potassium Level 4.0, Chloride Level 103, Carbon Dioxide Level 27, Anion Gap 10, Blood Urea Nitrogen 19H, Creatinine 0.83, Estimat Glomerular Filtration Rate > 60, BUN/Creatinine Ratio 23H, Glucose Level 100, Calcium Level 8.8, Total Bilirubin 0.3, Aspartate Amino Transf (AST/SGOT) 17, Alanine Aminotransferase (ALT/SGPT) 13, Alkaline Phosphatase 50, Total Protein 5.9L, Albumin 2.7L Microbiology 11/26/16 MRSA Screen - Final, Complete MRSA not isolated 11/26/16 Urine Culture - Final, Complete Escherichia Coli Enterococcus Faecalis Assessment/Plan Assessment/Plan Assess & Plan/Chief Complaint LEFT HIP FRACTURE URINARY TRACT INFECTION CHRONIC ANEMIA WITH POST OP BLOOD LOSS DYSPNEA CHRONIC PAIN SYNDROME ANXIETY LEFT HIP FRACTURE - PHYSICAL THERAPY -PT A TWO PERSON ASSIST - WILL NEED TO GO TO [facility]IOR [facility]ARE FOR THERAPY SHE IS NOT MAKING MUCH FORWARD PROGRESS WITH PHYSICAL THERAPY. URINARY TRACT INFECTION - ANTIBIOTICS CHANGED- PATIENT ON LEVAQUIN AND ROCEPHIN. CHRONIC ANEMIA WITH POST OP BLOOD LOSS - HGB STABLE. DYSPNEA- IMPROVED CHRONIC PAIN SYNDROME- IV PAIN MEDICATION, ORAL PAIN MEDICATION PRN. ANXIETY - RESTARTED HOME ALPRAZOLAM FOR PRN USE. Clinical Quality Measures DVT/VTE Risk/Contraindication: Risk Factor Score Per Nursin RFS Level Per Nursing on Admit: 4+=Very High DONTAE KERN MD Dec 03, 2016 08:13
[2016-12-03] MEDS ORDERED: FLEET ENEMA ADULT 1 EA BTL PR NR (08:15)
[2016-12-03] MEDS: RT-LEVALBUTEROL (XOPENEX) 1.25 MG/3 ML NEB NON-FORMULARY INH SCH ×3 (09:22→21:50)
--- NOTE | 2016-12-03 09:27 | Occupational Ther Daily Note ---
OT Current Status-Daily Note Subjective Pt sleeping in bed, woke easily to name. Family present in room. Pt agreed to therapy. Nrsg stated that she would give pt pain pills prior to OT initiating tx. Mental Status/Objective Functional [place] Measure 0=Not Assessed/NA 4=Minimal Assistance 1=Total Assistance 5=Supervision or Setup 2=Maximal Assistance 6=Modified [place] 3=Moderate Assistance 7=Complete [place] Other Treatment Pt was able to to complete 2 B shldr exercises against gravity 10x each. Then completed elbow flex/ext exercises 15 reps each and finger exercises for dexterity and assist to decrease swelling. Pt unable to track reps and would fall asleep during each exercises. After therapy, pt lying in bed with call light/phone in reach. All needs met in room. OT Short Term Goals Short Term Goals 1=Demonstrate adherence to instructed precautions during ADL tasks. 2=Patient will verbalize/demonstrate understanding of assistive devices/ modifications for ADL. 3=Patient will improve strength/tolerance for activity to enable patient to perform ADL's. OT Detention Goals Teacher Home Therapy Goals Time Frame: Dec 19, 2016 Eating (FIM): 5 Grooming(FIM): 5 Upper Body Dressing(FIM): 4 Toileting(FIM): 4 Toilet/Commode Transfer(FIM): 4 Additional Goals: 1-Demonstrate ADL Tasks, 2-Verbalize Understanding, 3- ImproveStrength/Christine 1=Demonstrate adherence to instructed precautions during ADL tasks. 2=Patient will verbalize/demonstrate understanding of assistive devices/ modifications for ADL. 3=Patient will improve strength/tolerance for activity to enable patient to perform ADL's. OT Education/Plan Problem List/Assessment Pt admitted with left hip fracture. Pt to benefit from skilled OT intervention for ADL training, transfers, strengthening, and home safety education to maximize level of independence and allow safe discharge plan. Discharge Recommendations Plan/Recommendations: Continue POC Treatment Plan/Plan of Care Patient would benefit from OT for education, treatment and training to promote independence in ADL's, mobility, safety and/or upper extremity function for ADL' s. Treatment Duration: Dec 19, 2016 Visits Per Week: 5 Rehab Potential: Good Time/GCodes Start Time: 09:00 Stop Time: 09:15 Total Time Billed (hr/min): 15 Billed Treatment Time 1 visit-EX 1 (15 min) SKY MARTINEZ Dec 03, 2016 09:27
[2016-12-03] MEDS: LEVOFLOXACIN 250 MG TAB (LEVAQUIN) PO SCH (11:16)
--- NOTE | 2016-12-03 11:40 | Physical Therapy Daily Note ---
PT Daily Note-Current Subjective Pt laying Supine in bed upon arrival. Pt agrees to PT. Pain Numeric Pain Scale: 7 Location: Left Location Body Site: Knee Pain Description: Ache Mental Status Patient Orientation: Person, Place, Time, Situation Attachments: Oxygen, Gregory Catheter Transfers Functional [place] Measure 0=Not Assessed/NA 4=Minimal Assistance 1=Total Assistance 5=Supervision or Setup 2=Maximal Assistance 6=Modified [place] 3=Moderate Assistance 7=Complete IndependenceIRFPAI Quality Coding Scale 6 Independent with activity with or without an assistive device 5 Patient requires set up or clean up by helper. Patient completes activity by themselves 4 Supervision or touching assist (CGA). [place] provide cues , steadying assist 3 The helper provides less than half the effort to complete the activity 2 The helper provides more than half the effort to complete the activity 1 Dependent. The helper does all the effort to complete an activity 7 Patient refused to complete or attempt activity 9 The patient did not perform the activity before the current illness or injury 88 Not attempted due to Medical conditions or safety concerns Scootin Supine to/from Sit: 3 Sit to/from Stand: 3 Bed to/from Chair: 3 Weight Bearing Weight Bearing Restriction: Full Weight Bearing Location Restriction: LE Bilateral Treatments Pt transfers from Supine to EOB using draw sheet/pad at Min-Mod A then EOB to Stand at Mod A. Pt transfers to BSC using SPT. Pt starts BM as standing so after brief sit, PT stands pt again for Anemia to assist with rest of BM. Pt continues to sit on BSC with Nurse and Aide present at end of tx with all needs met. Assessment Current Status: Good Progress Pt is getting stronger and is due to discharge to SNF tomorrow. PT Alf Goals Complex Care Nurse Practitioner Goals PT Complex Care Nurse Practitioner Goals Time Frame: Dec 19, 2016 Transfers (B,C,W/C) (FIM): 5 Gait (FIM): 2 Gait distance (FIM): 5=991-96 ft Distance: 50' Gait Level of Assist: 4 Gait Assistive Device: Walker Platform PT Plan Problem List Problem List: Activity Tolerance, Functional Strength, Safety, Balance, Gait, Transfer, Bed Mobility Treatment/Plan Treatment Plan: Continue Plan of Care Treatment Plan: Bed Mobility, Education, Functional Activity Christine, Functional Strength, Gait, Safety, Therapeutic Exercise, Transfers Treatment Duration: Dec 19, 2016 Visits Per Week: 11 Safety Risks/Education Patient Education: Transfer Techniques, Correct Positioning, Safety Issues Teaching Recipient: Patient, Family Teaching Methods: Discussion Response to Teaching: Verbalize Understanding Time/GCodes Time In: 930 Time Out: 950 Total Billed Treatment Time: 20 Total Billed Treatment visit, FA (20m) BRIDGER RAMSEY PTA Dec 03, 2016 11:40
--- NOTE | 2016-12-03 11:52 | Discharge Inst-Skilled Nursing ---
FREDERICK PRESLEY APRN 12/03/16 1151: Discharge [email or web address]Skilled NF Patient Instructions Patient Problems: Left hip fracture s/p left hip bipolar femoral hemiarthroplasty recurrent UTI debility blindness Goal: establishe independence with ADL's, increase activity level Patient Instructions: daily physical therapy WBAT on LLE using walker and staff for assist up to chair TID Continue BARAK hose x 3 weeks Continue ASA for DVT prophylaxis Daily island dressing changes until susan removed Remove susan and apply steri strips on 12/05/16 f/u labs per Dr. Aggarwal Continue hip precautions for 3 months Consult/Follow Up/Orders Follow Up Appt.: f/u in [address] Orozco f/u with Dr. Aggarwal per her recommendations Skilled NF Admit to: [facility] Certification (SNF) I certify that SNF services are required to be given on an inpatient basis because of the above named patient's need for shelter care on a continuing basis for the conditions(s) for which he/she was receiving inpatient hospital services prior to his/her transfer to the [facility]. Residential Facility Order: Nursing Services, Physical Therapy-Evaluate & Treat Discharge Diet: No Restrictions Daily Activity as Tolerated: Yes New & Resume Previous Orders New & Resume Previous Orders Resume home meds ultram and hydrocodone for pain Frederick Presley Dec 03, 2016 11:47 DONTAE AGGARWAL MD 12/04/16 0826: Discharge [facility] [[email or web address] NF Patient Instructions Patient Problems: LEFT HIP FRACTURE LEFT FOREARM FRACTURE HYPERTENSION CONSTIPATION WEAKNESS GAIT INSTABILITY CHRONIC PAIN SYNDROME ANXIETY CHRONIC URINARY TRACT INFECTIONS INTERSTITIAL CYSTITIS Goal: INCREASE STRENGTH, STABILITY OF GAIT, PT PLANS TO RETURN TO HOME Consult/Follow Up/Orders Follow Up Appt.: 2 WKS WITH ERLIN AND 10 DAYS WITH SHERICE Skilled NF Admit to: [facility] Order: Nursing Services, Nut Blanker Operator-Evaluate & Treat, Physical Therapy-Evaluate & Treat Discharge Diet: Regular Diet FREDERICK PRESLEY APRN Dec 03, 2016 11:51 DONTAE AGGARWAL MD Dec 04, 2016 08:26
--- NOTE | 2016-12-03 11:55 | Progress Note (SOAP) ---
Subjective Date Seen by Provider: Dec 03, 2016 Time Seen by Provider: 11:52 Subjective/Events-last exam No complaints, pain improved, only ambulating short distances with assist Objective Exam Vital Signs Date Time Temp Pulse Resp B/P (MAP) Pulse Ox O2 Delivery O2 Flow Rate FiO2 12/03/16 09:22 92 Nasal Cannula 2.00 12/03/16 08:00 Nasal Cannula 3.00 12/03/16 08:00 98.0 85 18 126/60 94 Nasal Cannula 3.00 12/03/16 00:36 98.0 85 18 126/60 94 Nasal Cannula 3.00 12/02/16 21:58 Nasal Cannula 2.00 12/02/16 20:00 Nasal Cannula 3.00 12/02/16 16:00 98.4 130 16 117/80 98 Nasal Cannula 3.00 12/02/16 14:52 Nasal Cannula 2.00 I & O 12/03/16 07:00 Intake Total 2120 ml Output Total 2300 ml Balance -180 ml Capillary Refill : Less Than 3 Seconds General Appearance: No Apparent Distress Extremity: Normal Capillary Refill, No Calf Tenderness, No Pedal Edema (left wrist distal radius tenderness, no deformity noted, left hip dressing CDI) Neurologic/Psychiatric: Alert, Oriented x3 Skin: Normal Color, Warm/Dry Results Lab Laboratory Tests 12/03/16 04:29: White Blood Count 6.7, Red Blood Count 3.19L, Hemoglobin 9.0L, Hematocrit 30L, Mean Corpuscular Volume 94, Mean Corpuscular Hemoglobin 28, Mean Corpuscular Hemoglobin Concent 30L, Red Cell Distribution Width 15.7H, Platelet Count 213, Mean Platelet Volume 10.3, Sodium Level 140, Potassium Level 4.0, Chloride Level 103, Carbon Dioxide Level 27, Anion Gap 10, Blood Urea Nitrogen 19H, Creatinine 0.83, Estimat Glomerular Filtration Rate > 60, BUN/Creatinine Ratio 23H, Glucose Level 100, Calcium Level 8.8, Total Bilirubin 0.3, Aspartate Amino Transf (AST/SGOT) 17, Alanine Aminotransferase (ALT/SGPT) 13, Alkaline Phosphatase 50, Total Protein 5.9L, Albumin 2.7L Microbiology 11/26/16 MRSA Screen - Final, Complete MRSA not isolated 11/26/16 Urine Culture - Final, Complete Escherichia Coli Enterococcus Faecalis Assessment/Plan Assessment/Plan Assess & Plan/Chief Complaint A: s/p bipolar prosthesis left hip left hip displaced femoral neck fracture hyperkalemia - resolved acute on chronic blood loss anemia mildly angulated left distal radius fracture P: Arrange transfer to [facility] per Dr. Aggarwal, short arm cast applied today, DC instructions on chart. Clinical Quality Measures DVT/VTE Risk/Contraindication: Risk Factor Score Per Nursin RFS Level Per Nursing on Admit: 4+=Very High FREDERICK PRESLEY COMMISSIONED SECURITY OFFICER Dec 03, 2016 11:54
--- NOTE | 2016-12-03 14:01 | Physical Therapy Daily Note ---
PT Daily Note-Current Subjective Pt sitting up in recliner upon arrival. Pt reports wanting to return to Supine in bed. Pt agrees to PT for transfer training. Pain Numeric Pain Scale: 8 Location: Left Location Body Site: Knee Pain Description: Ache Mental Status Patient Orientation: Person, Place, Time, Situation Attachments: Oxygen Transfers Functional [place] Measure 0=Not Assessed/NA 4=Minimal Assistance 1=Total Assistance 5=Supervision or Setup 2=Maximal Assistance 6=Modified [place] 3=Moderate Assistance 7=Complete IndependenceIRFPAI Quality Coding Scale 6 Independent with activity with or without an assistive device 5 Patient requires set up or clean up by helper. Patient completes activity by themselves 4 Supervision or touching assist (CGA). [place] provide cues , steadying assist 3 The helper provides less than half the effort to complete the activity 2 The helper provides more than half the effort to complete the activity 1 Dependent. The helper does all the effort to complete an activity 7 Patient refused to complete or attempt activity 9 The patient did not perform the activity before the current illness or injury 88 Not attempted due to Medical conditions or safety concerns Transfers (B, C, W/C) (FIM): 3 Scootin Rollin Supine to/from Sit: 3 Sit to/from Stand: 3 Bed to/from Chair: 3 Weight Bearing Weight Bearing Restriction: Full Weight Bearing Location Restriction: LE Bilateral Treatments Pt transferred from sitting in recliner to standing at Mod A. Pt completed SPT from standing at recliner to sitting at EOB. Pt transferred to Supine in bed and was positioned with pillow to side lying on L side. Pt is left with all needs met at end of tx. Assessment Current Status: Fair Progress Pt is getting stronger although still is Mod A for transfers. PT Makeup Sales Advisor Goals Makeup Sales Advisor Goals PT Makeup Sales Advisor Goals Time Frame: Dec 19, 2016 Transfers (B,C,W/C) (FIM): 5 Gait (FIM): 2 Gait distance (FIM): 1=875-24 ft Distance: 50' Gait Level of Assist: 4 Gait Assistive Device: Walker Platform PT Plan Problem List Problem List: Activity Tolerance, Functional Strength, Safety, Balance, Gait, Transfer, Bed Mobility Treatment/Plan Treatment Plan: Continue Plan of Care Treatment Plan: Bed Mobility, Education, Functional Activity Christine, Functional Strength, Gait, Safety, Therapeutic Exercise, Transfers Treatment Duration: Dec 19, 2016 Visits Per Week: 11 Safety Risks/Education Patient Education: Transfer Techniques, Correct Positioning, Safety Issues Teaching Recipient: Patient, Family Teaching Methods: Discussion Response to Teaching: Verbalize Understanding Time/GCodes Time In: 1330 Time Out: 1345 Total Billed Treatment Time: 15 Total Billed Treatment visit, FA (15m) BRIDGER RAMSEY PTA Dec 03, 2016 14:01
[2016-12-03 16:15] VITALS: BP 121/58
[2016-12-03] MEDS: MAGNESIUM OXIDE (MAG-OX)400 MG TAB PO SCH (20:41)
[2016-12-03] MEDS: ROSUVASTATIN 5 MG (CRESTOR) TABLET PO SCH (20:41)
[2016-12-03] MEDS: ALPRAZolam 0.25 MG (XANAX) TAB PO SCH (20:41)
[2016-12-03] MEDS: FERROUS SULF 325 MG (IRON) TAB PO SCH (20:41)
[2016-12-03] MEDS: TOLTERODINE LA 4 MG (DETROL) CAP PO SCH (20:41)
[2016-12-04] VITALS: BP 128/60
[2016-12-04] MEDS: HYDROcodone/APAP 7.5 MG/325 MG (LORTAB, LORCET PLUS) TABLET PO PRN ×2 (02:50→09:21)
[2016-12-04] MEDS: RT-LEVALBUTEROL (XOPENEX) 1.25 MG/3 ML NEB NON-FORMULARY INH SCH ×2 (02:52→07:22)
[2016-12-04] MEDS: LACTOBACILLUS Acidoph/Bulgar (LACTINEX/FLORANEX) TAB PO SCH (06:17)
[2016-12-04 07:50] VITALS: BP 126/61
[2016-12-04] MEDS: cefTRIAXone INJECTION 1,000 MG in NS (IVPB) 50 ML IV SCH (08:27)
[2016-12-04] MEDS: ASPIRIN E.C. 81 MG (ECOTRIN) TAB PO SCH (08:27)
[2016-12-04] MEDS: SENNA W/DOCUSATE (SENOKOT S) TABLET PO SCH (08:28)
[2016-12-04] MEDS: FUROSEMIDE 40 MG (LASIX) TAB PO SCH (08:28)
[2016-12-04] MEDS ORDERED: ASPI-983 PO (08:31)
[2016-12-04] MEDS ORDERED: HYDR-3816 PO (08:31)
[2016-12-04] MEDS ORDERED: SENN-20 PO (08:31)
[2016-12-04] MEDS ORDERED: ALPR0.254 PO (08:31)
--- NOTE | 2016-12-04 08:31 | Progress Note (SOAP) ---
Objective Exam Vital Signs Date Time Temp Pulse Resp B/P (MAP) Pulse Ox O2 Delivery O2 Flow Rate FiO2 12/04/16 07:50 96.1 57 18 126/61 93 Nasal Cannula 3.00 12/04/16 07:22 94 Nasal Cannula 2.00 12/04/16 02:53 92 Nasal Cannula 2.00 12/04/16 00:00 96.4 102 17 128/60 98 Nasal Cannula 3.00 12/03/16 21:51 96 Nasal Cannula 2.00 12/03/16 20:00 Nasal Cannula 3.00 12/03/16 16:15 97.1 96 18 121/58 96 Nasal Cannula 2.00 12/03/16 15:25 98 Nasal Cannula 2.00 12/03/16 09:22 92 Nasal Cannula 2.00 I & O 12/04/16 07:00 Intake Total 960 ml Output Total 1100 ml Balance -140 ml Capillary Refill : Less Than 3 Seconds Results Lab Microbiology 11/26/16 MRSA Screen - Final, Complete MRSA not isolated 11/26/16 Urine Culture - Final, Complete Escherichia Coli Enterococcus Faecalis Assessment/Plan Assessment/Plan Assess & Plan/Chief Complaint LEFT HIP FRACTURE URINARY TRACT INFECTION CHRONIC ANEMIA WITH POST OP BLOOD LOSS DYSPNEA CHRONIC PAIN SYNDROME ANXIETY LEFT HIP FRACTURE - PHYSICAL THERAPY -PT A TWO PERSON ASSIST - WILL NEED TO GO TO [facility] FOR THERAPY SHE IS NOT MAKING MUCH FORWARD PROGRESS WITH PHYSICAL THERAPY. URINARY TRACT INFECTION - ANTIBIOTICS CHANGED- PATIENT ON LEVAQUIN AND ROCEPHIN. CHRONIC ANEMIA WITH POST OP BLOOD LOSS - HGB STABLE. DYSPNEA- IMPROVED CHRONIC PAIN SYNDROME- IV PAIN MEDICATION, ORAL PAIN MEDICATION PRN. ANXIETY - RESTARTED HOME ALPRAZOLAM FOR PRN USE. Clinical Quality Measures DVT/VTE Risk/Contraindication: Risk Factor Score Per Nursin RFS Level Per Nursing on Admit: 4+=Very High DONTAE KERN MD Dec 04, 2016 08:31
[2016-12-04] MEDS: ALPRAZolam 0.25 MG (XANAX) TAB PO PRN (09:21)
--- NOTE | 2016-12-04 09:59 | Physical Therapy Daily Note ---
PT Daily Note-Current Subjective Patient is up in recliner, dressed and ready to dismiss to [place]. Pain Numeric Pain Scale: 5-Moderate Pain Location: Left Location Body Site: Hip Pain Description: Acute Mental Status Patient Orientation: Normal For Age Attachments: Oxygen Transfers Functional [place] Measure 0=Not Assessed/NA 4=Minimal Assistance 1=Total Assistance 5=Supervision or Setup 2=Maximal Assistance 6=Modified [place] 3=Moderate Assistance 7=Complete IndependenceIRFPAI Quality Coding Scale 6 Independent with activity with or without an assistive device 5 Patient requires set up or clean up by helper. Patient completes activity by themselves 4 Supervision or touching assist (CGA). [place] provide cues , steadying assist 3 The helper provides less than half the effort to complete the activity 2 The helper provides more than half the effort to complete the activity 1 Dependent. The helper does all the effort to complete an activity 7 Patient refused to complete or attempt activity 9 The patient did not perform the activity before the current illness or injury 88 Not attempted due to Medical conditions or safety concerns Transfers (B, C, W/C) (FIM): 3 Scootin Sit to/from Stand: 3 Bed to/from Chair: 3 sit to stand and SPT recliner to commode mod assist with patient taking steps and using left platform FWW sit <> stand transfer training x 4 sets and standing with weight shifting to left x 8 min Weight Bearing Weight Bearing Restriction: Weight Bearing/Tolerated Location Restriction: L LE Gait Training Gait (FIM): 1 Distance (FIM): 1=up to 49 ft Distance: 5' Gait Level of Assist: 3 Gait Persons Needed: 1 Gait Assistive Device: FWW antalgic Exercises Seated Therapy Exercises: Ankle pumps, Long arc quads, Hip flexion Seated Reps: 15 Assessment Patient will benefit from continued therapy at [place] to address functional mobility and strength. Patient is limited due to pain of left hip and overall weakness. PT Reference Librarian Goals Reference Librarian Goals PT Intermediate Goals Time Frame: Dec 19, 2016 Transfers (B,C,W/C) (FIM): 5 Gait (FIM): 2 Gait distance (FIM): 7=957-34 ft Distance: 50' Gait Level of Assist: 4 Gait Assistive Device: Walker Platform PT Plan Treatment/Plan Treatment Plan: Discontinue PT Treatment Plan: Bed Mobility, Education, Functional Activity Christine, Functional Strength, Gait, Safety, Therapeutic Exercise, Transfers Treatment Duration: Dec 19, 2016 Visits Per Week: 11 Time/GCodes Time In: 920 Time Out: 943 Total Billed Treatment Time: 23 Total Billed Treatment 1 visit FA x 2 23 min SARA ENGLISH PT Dec 04, 2016 09:59
[2016-12-04 10:41] VITALS: BP 126/61
== END 2016-12-04 11:36 | DRG 470 ==
LOC: 4TH 14:08 → ENPENDDIS 12-04 08:45
PROVIDERS: ADMIT Orthopaedic Surgery; ATTEND Orthopaedic Surgery
PROC: 0PSJXZZ Reposition Left Radius, External Approach (ICD-10-PCS; 2016-11-26)
PROC: 0SRS01A Replacement of Left Hip Joint, Femoral Surface with Metal Synthetic Substitute, Uncemented, Open Approach (ICD-10-PCS; principal; 2016-11-26 16:33)
DX: S72.002A Fracture of unspecified part of neck of left femur, initial encounter for closed fracture (principal); S52.502A Unspecified fracture of the lower end of left radius, initial encounter for closed fracture; N39.0 Urinary tract infection, site not specified; D62 Acute posthemorrhagic anemia; D50.0 Iron deficiency anemia secondary to blood loss (chronic); N30.10 Interstitial cystitis (chronic) without hematuria; B96.20 Unspecified Escherichia coli [E. coli] as the cause of diseases classified elsewhere; B95.2 Enterococcus as the cause of diseases classified elsewhere; Z66 Do not resuscitate; I25.10 Atherosclerotic heart disease of native coronary artery without angina pectoris; J44.9 Chronic obstructive pulmonary disease, unspecified; E87.5 Hyperkalemia; I11.0 Hypertensive heart disease with heart failure; I50.9 Heart failure, unspecified; F41.9 Anxiety disorder, unspecified; G25.81 Restless legs syndrome; G89.4 Chronic pain syndrome; E78.5 Hyperlipidemia, unspecified; K58.9 Irritable bowel syndrome, unspecified; K57.90 Diverticulosis of intestine, part unspecified, without perforation or abscess without bleeding; H35.30 Unspecified macular degeneration; M19.91 Primary osteoarthritis, unspecified site; W19.XXXA Unspecified fall, initial encounter; Y92.009 Unspecified place in unspecified non-institutional (private) residence as the place of occurrence of the external cause; Z95.1 Presence of aortocoronary bypass graft; Z96.659 Presence of unspecified artificial knee joint; Z99.81 Dependence on supplemental oxygen; Z86.79 Personal history of other diseases of the circulatory system; K59.00 Constipation, unspecified
CPT/HCPCS: 36415; 72170; 80048; 80053; 81000; 83735; 85007; 85014; 85018; 85025; 85027; 85610; 86850; 86900; 86901; 86920; 87077; 87081; 87088; 87186; 94640; 94664; 94760

== ENCOUNTER → 2016-12-17 | Outpatient (CLI) | payer MEDICARE ==
[~2016-12-17] MED LIST changes: +ASPI-983 PO; +L.AC1CAP6 PO; +MAGN400T6 PO; +POTA20TA8 PO; +ROSU10TA24 PO; +SENN-20 PO; +TOLT4CAP13 PO; +TRIM100T PO
[2016-12-17 19:46] LABS: BILIRUBIN,URINE NEGATIVE (NEGATIVE); KETONES,URINE NEGATIVE (NEGATIVE); LEUKOCYTE ESTERASE ,URINE 3+ (NEGATIVE); NITRITE,URINE NEGATIVE (NEGATIVE); PH,URINE 6 (5-9); PROTEIN,URINE 2+ (NEGATIVE); UROBILINOGEN,URINE NORMAL (NORMAL)
[2016-12-17 19:57] LABS: WBC,URINE TNTC /HPF
== END ==
LOC: CVS 19:41
PROVIDERS: ATTEND Family Medicine
DX: N39.0 Urinary tract infection, site not specified (principal)
CPT/HCPCS: 81000; 87077; 87088

== ENCOUNTER → 2017-01-20 | Outpatient (CLI) | payer MEDICARE ==
[2017-01-20 19:37] LABS: BILIRUBIN,URINE NEGATIVE (NEGATIVE); KETONES,URINE NEGATIVE (NEGATIVE); LEUKOCYTE ESTERASE ,URINE 3+ (NEGATIVE); NITRITE,URINE POSITIVE (NEGATIVE); PH,URINE 5 (5-9); PROTEIN,URINE 3+ (NEGATIVE); UROBILINOGEN,URINE NORMAL (NORMAL)
[2017-01-20 19:51] LABS: SQUAMOUS EPITHELIAL CELL,UR 25-50 /HPF; WBC,URINE TNTC /HPF
== END ==
LOC: CVS 17:50
PROVIDERS: ATTEND Family Medicine
DX: R30.0 Dysuria (principal)
CPT/HCPCS: 81000; 87077; 87088

== ENCOUNTER 2017-04-15 15:13 | Outpatient (RCR) | payer MEDICARE ==
[~2017-04-15 15:13] MED LIST changes: -FERR-74 PO; +FERR325T18 PO; -ROSU10TA24 PO; +ROSU10TA26 PO
== END 2017-07-14 | disposition home or self-care (01) ==
LOC: ONC 15:13
PROVIDERS: ATTEND Internal Medicine Hematology & Oncology
DX: C67.9 Malignant neoplasm of bladder, unspecified (principal); C79.51 Secondary malignant neoplasm of bone; I25.10 Atherosclerotic heart disease of native coronary artery without angina pectoris; I50.9 Heart failure, unspecified; N18.9 Chronic kidney disease, unspecified; I27.20 Pulmonary hypertension, unspecified; G25.81 Restless legs syndrome; I34.0 Nonrheumatic mitral (valve) insufficiency; M19.91 Primary osteoarthritis, unspecified site; Z79.899 Other long term (current) drug therapy
CPT/HCPCS: 99214